=== PATIENT | female | born 1960 | race Caucasian/White ===

== ENCOUNTER 2016-09-07 15:11 | Emergency (ER) | payer OTHER ==
[~2016-09-07] VITALS: Ht 175.3 cm; Wt 61.4 kg
[~2016-09-07 15:11] MED LIST: ASCO1500 PO; CHOL200025 PO; CYCL10TA9 PO; FLUO40CA PO; FLUT9.9S NS; GABA-502 PO; HYDR-3740 PO; IBUP800T28 PO; LISI-571 PO; OMEP20CA11 PO; ONDA4TAB12 PO; THYR120T2 PO
[2016-09-07 15:28] VITALS: BP 147/78; PULSE 116; RESP 22; O2SAT 97
[2016-09-07 16:35] VITALS: BP 152/85; PULSE 117; RESP 18; O2SAT 98
--- NOTE | 2016-09-07 16:36 | ED.REPORT ---
HPI-Overdose/Alcohol Toxicity Date of Service Sep 07, 2016 ED Provider: Gee Lebron MD A 55 year old female with a medical history including anxiety, depression, bowel malrotation, hiatal hernia, fibromyalgia, and hypothyroidism presents to the ED accompanied by her spouse requesting help with alcohol withdrawal. She also reports suicidal ideation, subjective fever, and "a lot of pain all over" which has prevented her from sleeping. The patient has been off her pain medication for three months due to problems at the pain clinic. She has been drinking alcohol daily for the past month and is intoxicated on arrival. The patient denies vomiting, diarrhea, melena, abnormal chest, or abdominal pain. She has an operation scheduled on 09/17/16 for a hiatal hernia. Nursing Notes Stated Complaint: MENTAL HEALTH/ALCOHOL WITHDRAWL Chief Complaint: Psychiatric Complaint Nursing Notes Reviewed: Yes Allergies: Coded Allergies: droperidol (Verified Allergy, Unknown, 07/31/16) levothyroxine sodium (Verified Allergy, Unknown, Upset stomach, nausea, ) promethazine (Verified Adverse Reaction, Severe, Extrapyramidal Symptoms, 07/31/16) HAS TOLERATED RECENTLY - INGA IN EARLY 20s hydroxyzine (Verified Adverse Reaction, Intermediate, Agitation, 07/31/16) amoxicillin (Verified Adverse Reaction, Mild, STOMACH UPSET, 07/31/16) clavulanic acid (Verified Adverse Reaction, Mild, STOMACH UPSET, 07/31/16) nitrofurantoin (Verified Adverse Reaction, Unknown, Diarrhea, 07/31/16) Uncoded Allergies: KCL (Allergy, Unknown, 07/04/16) Scheduled Cholecalciferol (Vitamin D3) (Vitamin D3) 2,000 Unit Tablet 2,000 UNIT PO DAILY Fluoxetine (Fluoxetine) 40 Mg Capsule 40 MG PO DAILY Fluticasone Propionate (Flonase Allergy Relief) 50 Mcg/Actuation [place].susp 9.9 ML NS DAILY Gabapentin (Gabapentin) 300 Mg Capsule 300 MG PO BID Lisinopril (Lisinopril) 5 Mg Tablet 5 MG PO DAILY Omeprazole (Omeprazole) 20 Mg Capsule.dr 20 MG PO DAILY Thyroid,Pork ([place] Thyroid) 120 Mg Tablet 120 MG PO QAM Scheduled PRN Cyclobenzaprine (Cyclobenzaprine) 10 Mg Tablet 10 MG PO TID PRN PRN For Spasm Hydrocodone-Acetaminophen 10-325 mg (Hydrocodone-Acetaminophen 10-325 mg) 1 Each Tablet 1 TABLET PO Q6H PRN PRN For Pain Ibuprofen (Ibuprofen) 800 Mg Tablet 800 MG PO BID PRN PRN For Pain Ondansetron ODT (Ondansetron ODT) 4 Mg Tablet 4 MG PO Q8H PRN PRN For Nausea/ Vomiting Miscellaneous Medications Ascorbic Acid (Vitamin C) 1,500 Mg Tablet.er 1,000 MG PO General Time Seen by Provider: 15:15 Chief Complaint Intoxicated, alcohol Hx Obtained From: Patient, Spouse Arrived By: Walk-in Onset Occurred: More than a week ago... (1 month) Symptom Duration: Since onset Progression Since Onset: Gradually worsening Location: : Abdomen: Back lower: Back upper: Head: Neck Quality: Painful Severity: Current: Moderate Severity: Maximum: Moderate Associated with: Reports: Abdominal pain, Headache, Denies: Shortness of breath Pertinent Negative: Relieved by nothing Related History: Reports: Alcoholism, Anxiety, Depression Immunizations: Tetanus up to date Recent Healthcare: No recent doctor visit Similar Sx Previous: Yes Past Medical History Past Medical History Bowel malrotation Diverticulitis Irritable bowel syndrome Possible colitis Hypothyroidism Anxiety Depression Chronic sinusitis. 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 Physical Exam Initial Vital Signs Vital Signs (First) Date Time Temp Pulse Resp B/P Pulse Ox O2 Delivery O2 Flow Rate FiO2 09/07/16 15:28 36.1 116 22 147/78 97 Room Air Initial VS: Reviewed Head / Eyes: Atraumatic, Normocephalic ENT: Conjunctiva normal, No scleral icterus Neck: Supple, Full range of motion Skin: Warm, Dry, No cyanosis General/Constitutional: Awake, Alert Tearful Smells of alcohol Respiratory / Chest: Breath sounds NL, Breath sounds = bilat, No respiratory distress Cardiovascular: Regular rhythm, Heart sounds NL Heart Rate / Rhythm: Positive: Tachycardia Neurologic: Oriented X3, Speech NL, No motor deficits, No sensory deficits Abnormal Mood/Affect: Positive: Depressed Abnormal Thinking / Perception: Positive: Insight abnormal, Judgment abnormal, Suicidal, no plan, Negative: Confused Interpretation & Diagnostics Lab Results Interpretation Test 09/07/16 16:02 09/07/16 17:22 Hold Urine Received (Received) Re-Eval/Medical Decision Source of Hx: Old records Re-Evaluation/Progress : Time of Eval: 17:29 Re-Evaluation/Progress Note: Discussed with patient plan for observation until alcohol level decreases and transfer of care to Dr. Mosley. Patient agrees with plan for care and all questions were addressed. Counseled Regarding: Other (Transfer of care to Dr. Mosley) Discharge & Departure Shift Change Sign-Out Patient Care Transferred: Yes (Dr. Mosley) Discussed Complaint(s): Yes Laboratory Evaluation: Ordered, not yet done Response to Therapy: Improved Impression: Primary Impression: Depression with suicidal ideation Additional Impression: Alcohol intoxication Complication of substance-induced condition: uncomplicated Qualified Code: F10.120 - Alcohol abuse with intoxication, uncomplicated Discharge Condition All VS Reviewed: Yes Condition: Stable Referrals: NOPCP (PCP) Care Transferred to: Dr. Mosley Care Transferred at: 18:00 Debra Attestation Portions of this note were transcribed by Radha Connolly. I, Dr. Lebron, personally performed the history, physical exam, and medical decision-making; I reviewed and confirmed the accuracy of the information in the transcribed note. Signed by: Debra Jose, 09/07/2016, 17:33 Gee Lebron MD Sep 07, 2016 16:36 RADHA CONNOLLY Sep 07, 2016 16:57
[2016-09-07] MEDS ORDERED: LORazepam 2 mg Tablet PO ONE (17:15)
[2016-09-07] MEDS ORDERED: LORazepam 2 mg Tablet PO PRN (17:15)
[2016-09-07 17:41] LABS: BASOPHILS % (AUTO) 0.6 % (0-3); EOSINOPHILS % (AUTO) 0.9 % (0-5); MONOCYTES % (AUTO) 7.2 % (4-12); Mean Corpuscular Hemoglobin 32.4 pg (27.0-35.0); Mean Corpuscular Volume 93.8 fL (81-100); NEUTROPHILS % (AUTO) 47.5 % (40-74); Platelet Count 218 bil/L (150-400)
[2016-09-07 23:43] VITALS: BP 127/73; PULSE 109; RESP 20; O2SAT 98
[2016-09-08] MEDS ORDERED: LORazepam 1 mg Tablet PO ONE (00:15)
[2016-09-08] MEDS ORDERED: LORA0.5T PO (00:43)
[2016-09-08 01:12] LABS: APPEARANCE,URINE HAZY (CLEAR,HAZY); COLOR,URINE YELLOW (YELLOW); OCCULT BLOOD,URINE TRACE (NEGATIVE); PH,URINE 5.5 (5.0-8.0); UROBILINOGEN,URINE NORMAL (NORMAL)
[2016-09-12] MEDS ORDERED: DULO30CA PO (16:22)
[2016-09-24] MEDS ORDERED: SULF1TAB7 PO (11:33)
== END 2016-09-08 01:00 | disposition home or self-care (01) ==
LOC: SED 15:11
DX: F32.9 Major depressive disorder, single episode, unspecified (principal); F10.120 Alcohol abuse with intoxication, uncomplicated; F41.8 Other specified anxiety disorders; R45.851 Suicidal ideations; Z87.81 Personal history of (healed) traumatic fracture; Z87.19 Personal history of other diseases of the digestive system; Z88.0 Allergy status to penicillin; Z88.8 Allergy status to other drugs, medicaments and biological substances

== ENCOUNTER 2016-09-17 05:35 | Day surgery (SDC) | payer OTHER ==
[~2016-09-17] VITALS: Ht 175.3 cm; Wt 64.1 kg
[2016-09-17] VITALS (20 sets, daily range): BP systolic 118–157; BP diastolic 81–108; PULSE 84–95; RESP 8–20; O2SAT 94–100
[~2016-09-17 05:35] MED LIST changes: +Clindamycin 900 mg/50 mL D5W IV ONE; +DULO30CA PO; -FLUO40CA PO; -GABA-502 PO; -HYDR-3740 PO; -LISI-571 PO; +LORA0.5T PO; +Lactated Ringer's 1,000 ML IV ONE
[2016-09-17] MEDS ORDERED: Ketamine 10 mg/mL 20 mL Inj ONE (05:36)
[2016-09-17] MEDS ORDERED: Ondansetron 2 mg/mL 2 mL Inj ONE (05:36)
[2016-09-17] MEDS ORDERED: HYDROmorphone 2 mg/mL Inj ONE (05:36)
[2016-09-17] MEDS ORDERED: Dexamethasone 4 mg/mL Inj ONE (05:36)
[2016-09-17] MEDS ORDERED: fentaNYL-PF 50 mCg/mL 2 mL Inj ONE (05:36)
[2016-09-17] MEDS ORDERED: MeTOProlol 1 mg/mL 5 mL Inj ONE (05:36)
[2016-09-17] MEDS ORDERED: Propofol 10,000 mCg/mL 20 mL Inj ONE (05:36)
[2016-09-17] MEDS ORDERED: Clindamycin 900 mg/50 mL D5W Premix IV ONE (05:40)
[2016-09-17] MEDS ORDERED: Lactated Ringer's 1,000 ML IV ONE (06:15)
--- NOTE | 2016-09-17 07:10 | PCM.HPANE ---
Patient Data Surgeon Admitting Provider: Attending Provider:Lean Gatica MD Primary Care Physician:Other,Physician Other Provider:Kendall Mullins Anesthesia Reason for Visit Gerd, Congenital Malformations Of Intestinal Fixat Ht/WT & BMI Height (Feet): 5 Height (Inches): 9.00 Weight (Kilograms): 62.140 Body Mass Index 20.00 Allergies Coded Allergies: droperidol (Verified Allergy, Unknown, 07/31/16) levothyroxine sodium (Verified Allergy, Unknown, Upset stomach, nausea, ) promethazine (Verified Adverse Reaction, Severe, Extrapyramidal Symptoms, 07/31/16) HAS TOLERATED RECENTLY - INGA IN EARLY 20s hydroxyzine (Verified Adverse Reaction, Intermediate, Agitation, 07/31/16) amoxicillin (Verified Adverse Reaction, Mild, STOMACH UPSET, 07/31/16) clavulanic acid (Verified Adverse Reaction, Mild, STOMACH UPSET, 07/31/16) nitrofurantoin (Verified Adverse Reaction, Unknown, Diarrhea, 07/31/16) Past Anesthesia History Anesthesia History: Denies:: Abnormal Airway, Anesthesia Reactions, Difficult Intubation, Fam Anesthesia Reaction, Fam Malignant Hypertherm, Malignant Hyperthermia Diabetes History Hx Diabetes?: No MRSA MRSA: No Medications Hypertension Medication: No Home Meds Incl Beta Blanca: No Active Scripts Lorazepam 0.5 Mg Tablet0.5 Mg PO BID PRN For Anxiety #14 TABLET Ref 0 Prov:Philly Disla MD 09/08/16 Ondansetron ODT 4 Mg Tablet4 Mg PO Q8H PRN For Nausea/Vomiting 7 Days Prov:Elizabeth Gregg DO 09/08/15 Reported Medications Duloxetine (Cymbalta)30 Mg Capsule.dr30 Mg PO DAILY Ref 0 09/12/16 Omeprazole 20 Mg Capsule.dr20 Mg PO DAILY Ref 0 07/05/16 Ascorbic Acid (Vitamin C)1,500 Mg Tablet.er1,000 Mg PO 07/04/16 Fluticasone Propionate (Flonase Allergy Relief)50 Mcg/Actuation [place].susp9.9 Ml NS DAILY 07/04/16 Cholecalciferol (Vitamin D3) (Vitamin D3)2,000 Unit Tablet2,000 Unit PO DAILY 06/22/16 Thyroid,Pork ([place] Thyroid)120 Mg [id number] Mg PO QAM 06/22/16 Ibuprofen 800 Mg [id number] Mg PO BID PRN For Pain 06/22/16 Cyclobenzaprine 10 Mg Iiwffk07 Mg PO TID PRN For Spasm 06/22/16 Discontinued Reported Medications Fluoxetine 40 Mg Unlfwgy66 Mg PO DAILY Ref 0 07/05/16 Discontinued Scripts Lisinopril 5 Mg Tablet5 Mg PO DAILY #30 TABLET Ref 0 Prov:Denver Rothman DO 08/02/16 Hydrocodone-Acetaminophen 10-325 mg 1 Each Tablet1 Tablet PO Q6H PRN For Pain # 15 TABLET Prov:Denver Rothman DO 08/02/16 Gabapentin 300 Mg [id number] Mg PO BID #60 CAPSULE Ref 0 Prov:JOSSY PAGE DO 07/31/16 History History of ENT Problems?: Yes HEENT History: Positive for:: Sinus Problem (sinus surgery) Denies:: Abnormal Airway Cataracts Difficult Intubation Dysphagia ("just lots of phlegm") Glaucoma Hearing Problem TMJ Hx of Heart Problems?: Yes Cardiovascular History: Denies:: AICD Atrial Fibrillation Cardiac Surgery Chest Pain Congestive Heart Failure Edema Heart Murmur Hypertension Irregular Heartbeat Pacemaker Thrombophlebitis Valvular Heart Disease Hx of Respiratory Problem?: Yes Respiratory History: Positive for:: Pneumonia (remote hx of ) Denies:: Asthma COPD Chest Surgery Cough Dyspnea Emphysema Hemoptysis Oxygen Administration Tuberculosis Use of C-PAP Machine Use of Inhalers / NEBS Hx Neurologic Problems?: Yes Neurological History: Positive for:: Headaches (frequently) Denies:: Alzheimer's Disease CVA Dementia Dizziness Multiple Sclerosis Parkinson's Disease Seizures Hx of GI Problems?: Yes Gastrointestinal History: Positive for:: Gall Bladder Disease (hx of pancreatitis) Gastroesphageal Reflux (takes prilosec) Heartburn Hiatal Hernia (current admission problem) Rectal Bleeding (occasional spotting) Denies:: Cirrhosis Diverticulitis (colitis) Gastrointestinal Bleeding Hepatitis Other GI Pertinent History: hx of gut malrotation (spleen right sided). partial situs inversus Hx of Problems?: No Genitourinary History: Denies:: HX of Hemodialysis Kidney Stones Urinary Tract Infection HX of Peritoneal Dialysis: No Female Hx: Denies:: Currently (hysterectomy) Problems with Breasts? Skin History: Denies:: History Skin Disorders? Pressure Ulcers Hx Musculoskeletal Problems?: Yes Musculoskeletal History: Positive for:: Back Injury (chronic pain ) Fibromyalgia Osteoarthritis Denies:: Joint Replacement Musculoskeletal Trauma Myasthenia Gravis Rheumatoid Arthritis Systemic Lupus Hx of Psycho/Social Problems?: Yes Psycho Social History: Positive for:: Anxiety Hx Depression Denies:: Bipolar Disorder Suicide Attempt Hx Surgeries?: Yes (hyst, appe, abdominoplasty, bladder susp, tonsil, C section ) Hx Any Other Health Problems?: Yes Other History: Positive for:: Hospitalization (migraine, surgeries) Thyroid Disease (hypothyroid) Denies:: Cancer Endocrine Disease History Blood Transfusions: Positive for:: Accept Blood Products? Denies:: Blood Transfuse Reaction Blood Transfusions Hx Diabetes: No Hx Alcohol Use: Yes (ED visit 09/07/16- reported drinking daily, etoh withdrawal )Hx Substance Use: No Smoking Status: Former Smoker Have You Smoked inLast 12 mo: Yes Stop/Bang Treated for Sleep Apnea?: No Do You Have a CPAP Machine?: No S-Snoring: Do You Snore Loudly: No T-Tired: feel tired, fatigued: Yes O-Obsered: Observed not breath: No P-Blood Pressure: treated: No B- Body Mass Index > 35 kg/m2: No A- Age over 50: Yes N- Neck Large Circumference: No G- Gender Male: No JINNY Total Score: 2 JINNY Risk Assessment: Low Risk, <3 Yes Risk Assessment Category Category 1A: Patient has history of documented sleep apnea, and HAS NOT received any narcotic, sedative or anesthesia administration during this stay. Category 1B: Patient has history of documented sleep apnea, and HAS received any narcotic , sedative or anesthesia administration during this stay Category 2: Patient has SUSPECTED Obstructive Sleep Apnea, and HAS received any narcotic , sedative or anesthesia administration during this stay. Category 3: Patient has SUSPECTED Obstructive Sleep Apnea and HAS NOT received narcotic, sedative or anesthesia administration during this stay. Category 4: Outpatient in Procedural Areas with known sleep apnea or who screen positive for High Risk via the STOP/BANG questionnaire. Exam Exam Vital Signs Vital Signs Date Time Temp Pulse Resp B/P Pulse Ox O2 Delivery O2 Flow Rate FiO2 09/17/16 05:54 36.6 95 17 119/89 100 Room Air General Appearance: Alert, Oriented X3, Cooperative, No Acute Distress HEENT/AIRWAY: MP 2 Lungs: Clear to Auscultation, Normal Air Movement Heart: Exam Unremarkable, Regular Rate/Rhythm, No Murmurs/Rubs/Gallops Meds/Labs/Diagnostics Admission Meds Current Medications Lactated Ringer's (Lr) 1,000 ml @ ud STK-MED ONCE IV Last administered on 09/17t 06:15; Start 09/17/16 at 06:15; Stop 09/17/16 at 06:16; Status DC Plan Impression Patient chart reviewed, patient interviewed and anesthestic plan with risks, benefits, and alternatives discussed, and informed consent obtained. NPO Status: 0315 veg bullion ASA Physical Status: ASA2 Mod Systemic Disease Anesthetic Plan: GA Bene/Risks/Altern/Consents: Yes HP Complete Prior to Induction: Yes Elia Marcelo MD Sep 17, 2016 07:10
[2016-09-17] MEDS ORDERED: Bupivacaine-MPF 0.5% 30 mL Inj INFILTRATE ONE (07:29)
[2016-09-17] MEDS ORDERED: HYDROmorphone 1 mg/mL Inj IVPUSH PRN (08:20)
[2016-09-17] MEDS ORDERED: MetoCLOpramide 5 mg/mL 2 mL Inj IVPUSH PRN ×2 (08:20→13:40)
[2016-09-17] MEDS ORDERED: Phenylephrine 10,000 mCg/mL Inj IVPUSH PRN (08:20)
[2016-09-17] MEDS ORDERED: fentaNYL-PF 50 mCg/mL 2 mL Inj IVPUSH PRN (08:20)
[2016-09-17] MEDS ORDERED: Lactated Ringer's 500 ML IV PRN (08:20)
[2016-09-17] MEDS ORDERED: EPHEDrine Sulfate 50 mg/mL Inj IVPUSH PRN (08:20)
[2016-09-17] MEDS ORDERED: Lactated Ringer's 1,000 ML IV SCH (08:20)
[2016-09-17] MEDS ORDERED: Ondansetron 2 mg/mL 2 mL Inj IVPUSH PRN ×2 (08:20→13:40)
[2016-09-17] MEDS ORDERED: Dexamethasone 4 mg/mL Inj IVPUSH PRN (08:20)
[2016-09-17] MEDS ORDERED: Morphine PCA 1 mg/mL 30 mL Inj IV PRN (13:40)
--- NOTE | 2016-09-17 14:05 | PCM.SURGPO ---
Immediate Operative Note Date of Surgery: Sep 17, 2016 Pre Operative Diagnosis GERD, Malrotation, Partial Situs inversus Post Operative Diagnosis GERD, Malrotation, Partial Situs inversus Procedure Laparoscopic Hiatal Hernia Repair, Alina fundoplication Surgeon and Sports Manager Surgeon: Lena Gatica MD Assistants: MD Shirley Jama, JULIO CÉSAR Vick, MS3 Findings Partial Situs Inversus, Huge Liver, Stomach twisted with greater curvature tethered to the Right upper quadrant towards the spleen Complications There were no periprocedural complications identified. Surgical Specimen Removed: No Specimen sent to Pathology: No Anesthetic Administered: GA Grafts, Implants: None Output, Estimated Blood Loss: 10 Blood Admin during surgery: No Attending Statement First Assistants listed during the operation were essential for the successful completion of the case Lena Gatica MD Sep 17, 2016 14:04
[2016-09-17 14:27] LABS: BASOPHILS % (AUTO) 0.2 % (0-3); EOSINOPHILS % (AUTO) 0 % (0-5); MONOCYTES % (AUTO) 8.8 % (4-12); Mean Corpuscular Hemoglobin 33.1 pg (27.0-35.0); Platelet Count 217 bil/L (150-400)
[2016-09-17] MEDS: Acetaminophen IV 1,000 MG in IV Premix 1 EACH IV SCH ×2 (14:30→20:48)
[2016-09-17] MEDS ORDERED: Labetalol 5 mg/mL 20 mL Inj ONE (14:33)
[2016-09-17] MEDS ORDERED: Labetalol 5 mg/mL 4 mL Inj IV PRN (14:35)
[2016-09-17] MEDS: hydrALAZINE 20 mg/mL Inj IVPUSH PRN ×2 (14:51→14:57)
[2016-09-17 15:44] LABS: Lipase 7 U/L (13-60)
[2016-09-17] MEDS: D5 0.45% NaCl + KCl 20 mEq/L 1,000 ML IV SCH (16:00)
--- NOTE | 2016-09-17 18:39 | NUR ---
Transfer to [facility] Pt. transferred to [facility] at 1540 in stable condition. Awake and alert. c/o strong abdominal and bilateral shoulder pain. FIRE CODE INSPECTOR morphine set up and pt. educated on use. Continuous pulse ox on. Several boluses given to help decrease pain to manageable level.
--- NOTE | 2016-09-17 18:55 | OP ---
[address] [address] OPERATIVE REPORT PATIENT: AMANDO CLEMENS : 1960 MR#: [id number] ADMIT: 09/17/2016 JOB ID: [id number] DATE OF SURGERY: 09/17/2016 PREOPERATIVE DIAGNOSIS(ES): Hiatal hernia with gastroesophageal reflux disease, along with malrotation and partial situs inversus. POSTOPERATIVE DIAGNOSIS(ES): Hiatal hernia with gastroesophageal reflux disease, along with malrotation and partial situs inversus. PROCEDURE PERFORMED: Laparoscopic repair of hiatal hernia with Alina fundoplication. SURGEON: 1. Lena Gatica MD. 2. Erika Marie MD. STUDY ABROAD COORDINATOR: NINA Galvan MS3. ESTIMATED BLOOD LOSS: 10 mL. COMPLICATIONS: None. CONDITION OF THE PATIENT: Stable. INDICATIONS: The patient is a 55-year-old lady, who presents to Dr. Jha on June 13, 2016, for back pain. Because of the radiation of the pain to the front of the abdomen and her known findings of anatomical abnormalities inside the abdomen, he obtained a CT scan and sent her for a surgical consultation. She has known that she has malrotation since her hysterectomy in the distant past. She has always had problems with abdominal symptoms including pain, alternating constipation and diarrhea. She was given a diagnosis of irritable bowel syndrome. She has also had the longstanding reflux and heartburn. She continues to have periodic episodes of emesis. I met her on June 19, 2016, and obtained esophageal manometry with impedance, BUI 48 hour pH probe EGD and upper GI with small bowel follow-through. It showed malrotation with no evidence of obstruction, profound reflux with normal lower esophageal sphincter pressure, relaxation and esophageal motility. I saw her back on February 23, 2016, and booked her for a laparoscopic fundoplication along with possible Burdette procedure based on intraoperative findings, but she interestingly presented to the emergency department the next week and was reportedly diagnosed with a pancreatic pseudocyst. She was monitored in the hospital and then was discharged home and her abdominal symptoms improved. We repeated a CT scan to make sure the pseudocyst was indeed getting better, and she was brought to the operating room today with plans for hiatal hernia repair. Her ultrasounds previously have consistently shown her gallbladder to be normal, and she does believe alcohol could be the etiology for her pancreatitis. The patient was placed in supine position and underwent smooth induction of general anesthesia. She was then positioned in the low lithotomy position. Nath catheter was placed and the left arm was tucked. Abdomen was prepped and draped in the usual sterile fashion. Surgical time-out was undertaken using safety checklist, and all were in agreement. We entered the abdomen using open Selena technique a few fingerbreadths above the umbilicus. An 11 mm trocar was in place there. We then placed additional 5 mm port in the left upper quadrant and an additional 11 mm port in the left upper quadrant. We took down the adhesions off the left lateral segment to the stomach sharply and then placed a right lateral 5 mm port under direct vision. Through this, we tried placing the large metal liver retractor, but inspection of the hiatus was challenging given the large liver so we up sized this port to an 11 mm and placed a paddle liver retractor, but even after that, we were unable to hold the liver up adequately to visualize the hiatus well. There was another 5 mm port put in through the falciform and we used an additional small metal liver retractor to hold the posterior aspect of the left lateral segment. This was retracted manually for the rest of the duration of the case. We placed an additional 5 mm trocar in the left upper abdomen lower down for us to be able to have additional working ports. The stomach was grabbed and retracted down and we first started mobilizing the greater curve. The short gastrics were taken down with the LigaSure device and the dissection proceeded towards the hiatus starting on the left. We entered the mediastinum and mobilized the esophagus circumferentially, preserving the vagi. We initially used a Lincoln to develop a plane posterior to what we felt was the stomach, but it ended up being just through adipose tissue, prompting us to do additional dissection. What we realized was the problem was because of her partial situs inversus. Her lower aspect of the greater curvature was tethered in the right upper quadrant where the spleen was behind the liver. This made getting circumferentially around the GE junction extremely challenging, leading to additional difficulty, but once we divided these attachments with the LigaSure, we were able to replace the Lincoln around the GE junction and were able to obtain traction on the esophagus, mobilizing the esophagus adequately to get 4 cm of intra-abdominal esophagus. After this, we closed the crura with two 2-0 interrupted silk sutures posteriorly and one 2-0 silk suture anteriorly. Marking stitch was then placed on the posterior fundus 3 cm distal to the GE junction and 2 cm posterior to the greater curve. This was brought around posteriorly to align the geometry of the fundoplication. A mirror image location on the anterior fundus was chosen and a shoe shine maneuver was performed. The fundoplication was performed loosely with 2-0 silk. The Lincoln drain was then removed and we used three silk sutures for the fundoplication. We then proceeded to suture the fundoplication to the posterior aspect of the right sabiha. We additionally placed another anchoring suture from the left side of the fundoplication to the left sabiha. We then closed the 11 mm fascial sites with 0-Vicryl cnlomi-as-fgmel sutures. The skin was reapproximated with 4-0 Monocryl after infiltrating the sites again with 0.5% Marcaine. Steri-Strips and sterile dressing were applied. The patient was recovered from anesthesia and was taken to the recovery room in a stable condition. ADDENDUM FOR MODIFIER 22: The patient's altered anatomy from her partial situs inversus with extremely large liver added significant difficulty to the operation, increasing operative time significantly, prompting us to request higher reimbursement. JAG
[2016-09-17] MEDS ORDERED: MORPHINE PCA 1 MG/ML IV PRN (19:40)
[2016-09-17] MEDS: MORPHINE PCA 1 MG/ML IV PRN ×2 (20:40→21:52)
[2016-09-17] MEDS ORDERED: 0.9% Sodium Chloride 250 ML ONE (20:45)
[2016-09-18] VITALS (9 sets, daily range): BP systolic 135–150; BP diastolic 72–84; PULSE 69–101; RESP 14–20; O2SAT 94–98
[2016-09-18] MEDS: Acetaminophen IV 1,000 MG in IV Premix 1 EACH IV SCH ×3 (02:03→10:15)
--- NOTE | 2016-09-18 02:34 | NUR ---
Blood Glucose Patient tolerating clear liquid diet, denies nausea and vomiting at this time. BG 143@ 0200.
[2016-09-18] MEDS: D5 0.45% NaCl + KCl 20 mEq/L 1,000 ML IV SCH (04:48)
[2016-09-18 06:58] LABS: BASOPHILS % (AUTO) 0 % (0-3); EOSINOPHILS % (AUTO) 0.1 % (0-5); MONOCYTES % (AUTO) 10.5 % (4-12); Mean Corpuscular Hemoglobin 31.9 pg (27.0-35.0); Mean Corpuscular Volume 99.2 fL (81-100); NEUTROPHILS % (AUTO) 81.4 % (40-74); Platelet Count 98 bil/L (150-400)
[2016-09-18] MEDS: MORPHINE PCA 1 MG/ML IV PRN (07:28)
--- NOTE | 2016-09-18 07:32 | PCM.ANEP2 ---
Post Anesthesia Evaluation ASA/CMS Post Anesthesia VS in Patient's Normal Range?: Yes Resp Stable; Airway Patent?: Yes CV Function & Hydration Stable: Yes Mental Status Recovered?: Yes Pain control Satisfactory?: Yes N/V Control Satisfactory?: Yes Elia Marcelo MD Sep 18, 2016 07:32
--- NOTE | 2016-09-18 07:32 | PCM.ANEP1 ---
Post Anesthesia Phase 1 PACU Phase 1 Assessment Date of Service: Sep 17, 2016 Vital Signs Vital Signs Date Time Temp Pulse Resp B/P Pulse Ox O2 Delivery O2 Flow Rate FiO2 09/18/16 04:40 36.6 93 20 135/84 96 Room Air 09/18/16 03:28 18 97 09/18/16 01:02 18 98 09/18/16 00:03 36.5 92 18 145/83 98 Nasal Cannula 2.00 Anesthetic Administered: GA Level of Alertness: Sleepy, easy to arouse GA's with Equal Strength: Yes Pain: Yes Pain Scale Score: 4 Nausea or Vomiting: No Oxygen Delivery: Simple Mask Lungs: Clear to Auscultation, Normal Air Movement Dermatome Level: Full Sensation Elia Marcelo MD Sep 18, 2016 07:32
--- NOTE | 2016-09-18 08:32 | NUR ---
Pt off unit Pt to Radiology for UGI xrays.
--- NOTE | 2016-09-18 10:25 | DRSVH ---
PROCEDURE: X-RAY GASTROGRAPHIN STUDY OF ESOPHAGUS/PHARYNX ([id number]) INDICATIONS: Malrotation, Alina COMPARISON: None. FINDINGS: Limited Gastrografin esophagram demonstrates an intact Alina fundoplication and there is no extravas ation of contrast media present. The distal esophagus is mildly patulous and there is internal debri s likely related to ingested esophageal contents. Stomach is grossly normal. The attending physician was personally present in the room during the examination. IMPRESSION: Intact Alina fundoplication and no extravasation of contrast media seen. Dictated by: Joseph HE Interpreted: Yuri Garrett MD on 09/18/2016 at 10:24 Transcribed by: GAVIN on 09/18/2016 at 10:25 Approved by: Flex Garrett M.D. on 09/18/2016 at 14:15
--- NOTE | 2016-09-18 10:58 | NUR ---
Social Work Screen Note: SW met with patient at bedside to discuss discharge plan. Plan is a 55 year old male admitted under [facility] for GERD, congenital malformation of intest. Patient payer as Chronicity. Patient has no prison disability nor VA benefits. Patient PCP as MD Taylor. Patient resides in [place] with significant other Froy, who to provide support and care. Patient pharmacy of choice as [facility]. Patient has no HHC, SNF, or DME history. Patient has no AD and declined completion of form. Patient states being independent with needs and states that she still drives. Patient denied any further discharge needs at this time. SW to follow. PLAN: Home with SO via POV, pending clinical course. SW to follow as further needs arise. Manuel CODY
--- NOTE | 2016-09-18 11:16 | NUR ---
RD Education RD Education provided 09/18 regarding pureed diet. For more detailed information, please see RD Teaching Record under Care Activity. Addendum: 09/18/16 at [address] I have read and agree with above student documentation. Lily Muniz RD, CD
[2016-09-18] MEDS ORDERED: oxyCODONE 1 mg/mL 5 mL Liquid PO PRN (12:35)
[2016-09-18] MEDS ORDERED: Ibuprofen Suspension 20 mg/mL 5 mL Suspension PO SCH ×2 (12:35→18:35)
[2016-09-18] MEDS ORDERED: Acetaminophen 32.5 mg/mL 20 mL Liquid PO SCH (12:35)
[2016-09-18] MEDS ORDERED: OXYC5SOL11 PO (12:41)
[2016-09-18] MEDS ORDERED: ACET650S24 PO (12:41)
[2016-09-18] MEDS ORDERED: IBUP100O10 PO (12:41)
--- NOTE | 2016-09-18 12:45 | PCM.PNSURG ---
Subjective Date of Service: Sep 18, 2016 Visit Information: Ever zaldivar 09/17/2016 Post-Op Day # 1 Date of Admission: Hospital Day # 2 Subjective: Tolerating liquids Objective Vital Sign- Last 8 Hours Date Time Temp Pulse Resp B/P Pulse Ox O2 Delivery O2 Flow Rate FiO2 09/18/16 11:26 101 94 09/18/16 11:12 14 09/18/16 07:36 14 97 09/18/16 07:32 Simple Mask Intake and Output- Last 8 Hour 09/18/16 Cumulative From/Thru 07:00 09/12/16 16:02 - 09/18/16 06:43 Intake Total 1194 ml 4418 ml Output Total 575 ml 795 ml Balance 619 ml 3623 ml Intake Oral 360 ml 460 ml IV Total 834 ml 3958 ml Output Urine Total 575 ml 775 ml Estimated Blood Loss 20 ml Abdomen: Soft SURGICAL WOUND : Wound Location/Description dressings dry Result Diagram: 09/18/16 0555 09/18/16 0555 Diagnostics: Upper GI looks good Assessment & Plan Impression Doing well Problems: Plan Full liquid diet Liquid pain meds Plan discharge F/u In 2 weeks Lena Gatica MD Sep 18, 2016 12:45
--- NOTE | 2016-09-18 13:28 | PCM.DISURG ---
Surgical Discharge Instruction Date of Service Sep 18, 2016 Dates of Hospitalization Date of Hospital Admission 09/17/2016 Providers Admitting Physician: Primary Care Physician: Other,Physician Attending Physician: Lena Gatica MD Discharge Diagnosis Discharge Diagnosis Primary diagnosis: 1. Hiatal hernia with gastroesophageal reflux disease 2. Malrotation 3. Partial situs inversus. Other diagnoses: 1. Colonic polyps 2. Sol thyroiditis 3. Fibromyalgia 4. Migraine headaches 5. Endometriosis 6. Osteoarthritis 7. Daily cigarette smoker 8. Anxiety 9. Depression 10. Irritable bowel syndrome Post Operative diagnosis Same Diet Discharge Diet: Other (liquid diet) Activity Discharge Activity-General: Balance rest and activity, No driving while taking narcotic Dressing and Incisional Care Dressing Care: Allow Steri Stripes to fall off Hygiene: May shower Follow Up Plan Follow-up Provider (F9): Lena Gatica MD Follow-up appointment: Weeks (2) Call your provider for: Fever, Chills, Nausea, Vomiting, Wound redness, Increasing wound pain, Warmth to touch, Discharge @ incision, pus discharge, Other (retching or inability to swallow) Roderick Mohamud PA-C Sep 18, 2016 13:28
--- NOTE | 2016-09-18 13:35 | PCM.DC.SUR ---
Discharge Summary Date of Service: Sep 18, 2016 Date of Hospital Admission: 09/17/2016 Date of Operation(s): 09/17/2016 Date of Discharge: 09/18/2016 Diagnosis at Time of Discharge Primary diagnosis: 1. Hiatal hernia with gastroesophageal reflux disease 2. Malrotation 3. Partial situs inversus. Other diagnoses: 1. Colonic polyps 2. Sol thyroiditis 3. Fibromyalgia 4. Migraine headaches 5. Endometriosis 6. Osteoarthritis 7. Daily cigarette smoker 8. Anxiety 9. Depression 10. Irritable bowel syndrome Problems: Operation Laparoscopic repair of hiatal hernia with Alina fundoplication. Brief History and Physical: The patient is a 55-year-old female who presented to her primary care physician Dr. Jha on 06/13/2016 for back pain. Because of the radiation of the pain to the front of the abdomen, and her known findings of anatomical abnormalities inside the abdomen he obtained a CT scan and sent her for surgical consultation. She has known that she has malrotation since her hysterectomy in the distant past. She has always had problems with abdominal symptoms, including pain, alternating constipation, and diarrhea. She had been given the diagnosis of irritable bowel syndrome. She has also had long-standing reflux and heartburn. She has been taking omeprazole for over 2 years with only partial relief of symptoms. She continued to have periodic episodes of emesis. Consultants: None Hospital Course: The patient was admitted and underwent the above-mentioned operation without complication. The following day she was afebrile and pain was well controlled on liquid oral analgesic. She was eating Jell-O and drinking liquids with no odynophagia, dysphagia, or regurgitation. The patient was stable for discharge on her first postsurgical day. Pathology: None Disposition: The patient was discharged to home on her first postsurgical day. Follow-up Plan: She will follow-up in the office with Dr. Gatica in 2 weeks. Acetaminophen (Acetaminophen Liquid) 650 Mg/20 Ml Liquid 650 MG PO Q6H Ascorbic Acid (Vitamin C) 1,500 Mg Tablet.er 1,000 MG PO (Reported) Cholecalciferol (Vitamin D3) (Vitamin D3) 2,000 Unit Tablet 2,000 UNIT PO DAILY (Reported) Cyclobenzaprine (Cyclobenzaprine) 10 Mg Tablet 10 MG PO TID PRN PRN For Spasm ( Reported) Duloxetine (Cymbalta) 30 Mg Capsule.dr 30 MG PO DAILY (Reported) Fluticasone Propionate (Flonase Allergy Relief) 50 Mcg/Actuation [place].susp 9.9 ML NS DAILY (Reported) Ibuprofen (Children's Ibuprofen) 100 Mg/5 Ml Oral.susp 400 MG PO Q6H Lorazepam (Lorazepam) 0.5 Mg Tablet 0.5 MG PO BID PRN PRN For Anxiety Omeprazole (Omeprazole) 20 Mg Capsule.dr 20 MG PO DAILY (Reported) Ondansetron ODT (Ondansetron ODT) 4 Mg Tablet 4 MG PO Q8H PRN PRN For Nausea/ Vomiting Thyroid,Pork ([place] Thyroid) 120 Mg Tablet 120 MG PO QAM (Reported) oxyCODONE (oxyCODONE) 5 Mg/5 Ml Solution 5 MG PO Q4H PRN PRN For Severe Pain copies to: Nura Jha DO; Abdirahman García Fred H PA-C Sep 18, 2016 13:35
--- NOTE | 2016-09-18 17:14 | NUR ---
Discharge Pt discharged to home with family via private vehicle at 1655 hrs. PIV removed intact. Pain controlled. VSS. All personal possessions sent with pt. Discharge and follow up instructions given to pt and she expressed understanding.
[2016-09-24] MEDS ORDERED: SULF1TAB7 PO (11:33)
== END 2016-09-18 17:00 | disposition home or self-care (01) ==
LOC: SAS 05:35 → OSC 15:40 → SAS 09-18 17:00
PROVIDERS: ATTEND Student in an Organized Health Care Education/Training Program
DX: K44.9 Diaphragmatic hernia without obstruction or gangrene (principal); K21.9 Gastro-esophageal reflux disease without esophagitis; Q43.3 Congenital malformations of intestinal fixation; Q89.3 Situs inversus; G89.29 Other chronic pain; E06.3 Autoimmune thyroiditis; E03.9 Hypothyroidism, unspecified; F41.9 Anxiety disorder, unspecified; F17.210 Nicotine dependence, cigarettes, uncomplicated; Z79.891 Long term (current) use of opiate analgesic; Z86.010 Personal history of colon polyps
CPT/HCPCS: 36415; 43280; 74220; 80053; 82150; 83690; 85025; 94640; J0131; J0360; J1100; J1170; J2250; J2270; J2405; J7050; J7120; Q9963

== ENCOUNTER 2016-09-22 11:23 | Emergency (ER) | payer OTHER ==
[~2016-09-22] VITALS: Ht 175.3 cm; Wt 63.6 kg
[~2016-09-22 11:23] MED LIST changes: +ACET650S24 PO; -Clindamycin 900 mg/50 mL D5W IV ONE; +IBUP100O10 PO; -IBUP800T28 PO; -Lactated Ringer's 1,000 ML IV ONE; +OXYC5SOL11 PO
[2016-09-22 11:26] VITALS: BP 146/86; PULSE 106; RESP 16; O2SAT 97
--- NOTE | 2016-09-22 11:31 | ED.REPORT ---
HPI-Abd Pain F 40 and Over Date of Service Sep 22, 2016 ED Provider: Viki Wilber 55 year old female with a history of bowel malrotation, diverticulitis, pancreatitis, GERD, and IBS presents to the ER with 6 days of post-operative abdominal pain status post laparoscopic Alina fundoplication, performed by Dr. Gatica. Associated symptoms include nausea, and diarrhea x6 since yesterday. Patient denies fever, chills, and vomiting. Three days ago she ran out of her oxycodone, and has since been treating pain with ibuprofen and Tylenol with minimal relief. She called Dr. Marie, Surgeon, regarding her symptoms, who referred her to the ER. Nursing Notes Stated Complaint: HAD SURGERY HIATAL HERNIA/ IN PAIN & VOMITTING Chief Complaint: Female Abdominal Pain Nursing Notes Reviewed: Yes Allergies: Coded Allergies: droperidol (Verified Allergy, Unknown, 07/31/16) levothyroxine sodium (Verified Allergy, Unknown, Upset stomach, nausea, ) promethazine (Verified Adverse Reaction, Severe, Extrapyramidal Symptoms, 07/31/16) HAS TOLERATED RECENTLY - INGA IN EARLY 20s hydroxyzine (Verified Adverse Reaction, Intermediate, Agitation, 07/31/16) amoxicillin (Verified Adverse Reaction, Mild, STOMACH UPSET, 07/31/16) clavulanic acid (Verified Adverse Reaction, Mild, STOMACH UPSET, 07/31/16) nitrofurantoin (Verified Adverse Reaction, Unknown, Diarrhea, 07/31/16) Scheduled Acetaminophen (Acetaminophen Liquid) 650 Mg/20 Ml Liquid 650 MG PO Q6H Cholecalciferol (Vitamin D3) (Vitamin D3) 2,000 Unit Tablet 2,000 UNIT PO DAILY Duloxetine (Cymbalta) 30 Mg Capsule.dr 30 MG PO DAILY Fluticasone Propionate (Flonase Allergy Relief) 50 Mcg/Actuation [place].susp 9.9 ML NS DAILY Ibuprofen (Children's Ibuprofen) 100 Mg/5 Ml Oral.susp 400 MG PO Q6H Omeprazole (Omeprazole) 20 Mg Capsule.dr 20 MG PO DAILY Sulfamethoxazole/Trimeth 800-160 mg (Bactrim DS) 1 Each Tablet 1 TABLET PO BID Thyroid,Pork ([place] Thyroid) 120 Mg Tablet 120 MG PO QAM Scheduled PRN Cyclobenzaprine (Cyclobenzaprine) 10 Mg Tablet 10 MG PO TID PRN PRN For Spasm Lorazepam (Lorazepam) 0.5 Mg Tablet 0.5 MG PO BID PRN PRN For Anxiety Ondansetron ODT (Ondansetron ODT) 4 Mg Tablet 4 MG PO Q8H PRN PRN For Nausea/ Vomiting Ondansetron ODT (Zofran ODT) 4 Mg Tablet 4 MG PO Q4H PRN PRN For Nausea oxyCODONE (oxyCODONE) 5 Mg/5 Ml Solution 5 MG PO Q4H PRN PRN For Severe Pain oxyCODONE (oxyCODONE) 5 Mg Capsule 1-2 MG PO Q4H PRN PRN For Pain Miscellaneous Medications Ascorbic Acid (Vitamin C) 1,500 Mg Tablet.er 1,000 MG PO General Time Seen by MD: 11:30 Chief Complaint Abdominal pain Hx Obtained From: Patient Arrived By: Walk-in Sudden in Onset?: No Onset Occurred: 6 days ago Symptom Duration: Since onset Progression since Onset: Gradually worsening Location: : Diffuse Quality: Painful Severity: Current: Moderate Severity: Maximum: Severe Associated with: Reports: Diarrhea, Nausea, Denies: Vomiting Context Related History: Reports: Abdominal surgery (Alina fundoplication), Diverticulosis, GERD, Hiatal hernia, Pancreatitis Recent Healthcare: No recent hospitalization, Recent doctor visit Past Medical History Past Medical History Bowel malrotation Diverticulitis Irritable bowel syndrome Possible colitis Hypothyroidism Anxiety Depression Chronic sinusitis. 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 Physical Exam Vital Signs Vital Signs (First) Date Time Temp Pulse Resp B/P Pulse Ox O2 Delivery O2 Flow Rate FiO2 09/22/16 11:26 36.6 106 16 146/86 97 Room Air Initial VS: Reviewed Head / Eyes: Atraumatic, Normocephalic Neck: Supple, Non-tender, Full range of motion Extremities: Vascular intact, Neuro intact, No swelling, No tenderness Neurologic: Alert, Oriented, Nonfocal Psychiatric: Mood/affect normal, Behavior normal, Normal thought content Respiratory / Chest: Breath sounds NL, Breath sounds = bilat, No respiratory distress, No rales, No rhonchi, No wheezing, No stridor Cardiovascular: Heart rate NL, Regular rhythm, Heart sounds NL, Peripheral circulation NL Abdomen: No guarding, No rebound, BS normoactive Tenderness/Guarding/Rebound: Positive: Tender diffuse Bowel Sounds / Distention: Positive: Distention moderate Tenderness to light palpation across the upper abdomen. Tenderness to deep palpation across the lower abdomen. Surgical incisions clean, dry, intact. Tender along surgical incisions. Brusing around periumbilical incision and LUQ. Back: Inspection NL, Non-tender, No CVA tenderness ENT: Airway patent Mouth: Positive: Mucous membranes dry Skin: Warm, Dry, Intact Poor turgor. Interpretation & Diagnostics Lab Results Interpretation Result Diagram: 09/22/16 1224 09/22/16 1224 Test 09/22/16 12:22 09/22/16 12:24 Urine Color Yellow (YELLOW) Urine Appearance Hazy (CLEAR,HAZY) Urine pH 5.5 (5.0-8.0) Urine Specific [place] 1.030 (1.003-1.035) Urine Protein Negativemg/dL (NEG,TRACE) Urine Glucose (UA) Negativemg/dL (NEGATIVE) Urine Ketones Negativemg/dL (NEGATIVE) Urine Occult Blood Negative (NEGATIVE) Urine Nitrite Negative (NEGATIVE) Urine Bilirubin Negative (NEGATIVE) Urine Urobilinogen Normalmg/dL (NORMAL) Urine Leukocyte Esterase Trace (NEGATIVE) Urine RBC 0-2/hpf (0-2) Urine WBC 0-5/hpf (0-5) Urine Epithelial Cells Moderate/hpf (NONE-MOD) Urine Crystals None seen (NONE SEEN) Urine Bacteria Few/hpf (NONE-FEW) Urine Hyaline Casts None/lpf (NONE) Urine Granular Casts None seen (NONE SEEN) Urine Waxy Casts None seen (NONE SEEN) Urine Red Blood Cell Casts None seen (NONE SEEN) Urine White Blood Cell Casts None seen (NONE SEEN) Urine Mucus None seen (None Seen) Urine Trichomonas None seen (NONE SEEN) Urine Yeast None (NONE SEEN) Urinalysis Comment None Urine Culture Reflexed Indicated White Blood Count 7.6th/mm3 (3.8-10.1) Red Blood Count 3.72mil/mm3 (3.90-5.20) Hemoglobin 12.2g/dL (12.0-15.6) Hematocrit 36.4% (35.0-46.0) Mean Corpuscular Volume 97.8fL (81-100) Mean Corpuscular Hemoglobin 32.8pg (27.0-35.0) Mean Corpuscular Hemoglobin Concent 33.5% (32.0-37.0) Red Cell Distribution Width 15.3% (12.3-15.4) Platelet Count 193bil/L (150-400) Neutrophils (%) (Auto) 74.4% (40-74) Lymphocytes (%) (Auto) 12.5% (14-46) Monocytes (%) (Auto) 11.2% (4-12) Eosinophils (%) (Auto) 1.2% (0-5) Basophils (%) (Auto) 0.3% (0-3) Prothrombin Time 9.4sec (8.1-12.5) Prothromb Time International Ratio 0.88ratio Sodium Level 134mEq/L (134-144) Potassium Level 4.4mEq/L (3.5-5.2) Chloride Level 96mEq/L (97-108) Carbon Dioxide Level 22mmol/L (18-29) Blood Urea Nitrogen 6mg/dL (6-24) Creatinine 0.36mg/dL (0.57-1.00) Estimat Glomerular Filtration Rate 270mL/min (>59) Glucose Level 119mg/dL (60-99) Lactic Acid Level 2.1mmol/L (0.4-2.0) Calcium Level 8.8mg/dL (8.5-10.1) Magnesium Level 1.7mg/dL (1.6-2.6) Total Bilirubin 0.3mg/dL (0.0-1.2) Aspartate Amino Transf (AST/SGOT) 97U/L (0-50) Alanine Aminotransferase (ALT/SGPT) 118U/L (0-32) Alkaline Phosphatase 153U/L (25-150) Total Protein 6.8g/dL (6.4-8.4) Albumin 3.5g/dL (3.4-5.0) Lipase 7U/L (13-60) Alcohol, Quantitative < 10mg/dL (0-10) X-Ray Interpretation Xray Interpretation: IMPRESSION: Mildly dilated loops of bowel noted which could represent early complete or partial obstruction. Dictated by: Joanne Bruce MD, PhD on 09/22/2016 at 15:58 Approved by: Joanne Bruce MD, PhD on 09/22/2016 at 16:01 Study Performed: X-RAY ABDOMEN, ONE VIEW ([id number]) Interpretation / Wet Read by: Interpret - Radiologist CT Abd / Pelvis Interpretation IMPRESSION: 1. Congenital heterotaxy syndrome with left isomerism, situs ambiguous and polysplenia. 2. Status post Alina fundoplication. Inflammatory changes adjacent to fundoplication site likely postsurgical, however infection can't be excluded by imaging alone. 2. Small amount of free intraperitoneal air likely postsurgical, however bowel perforation cannot be excluded. No extravasation oral contrast is identified. 4. Dilated proximal, short segment loop of small bowel compatible with small bowel obstruction. . 5. New hypoattenuating lesions in the liver which could represent hepatic infarcts, however finding is nonspecific and other etiologies including hepatic contusion or infection could produce similar appearance. Please correlate with clinical data. 6. Colonic diverticulosis without evidence of diverticulitis. 7. Pancreatic pseudocyst stable compared to recent prior CT scans. 8. Findings telephoned to Dr. Chris Drew on 09/22/16 at 1434 hrs. Dictated by: Joanne Bruce MD, PhD on 09/22/2016 at 14:49 Approved by: Joanne Bruce MD, PhD on 09/22/2016 at 15:10 Study type: Abdominal CT IV contrast, Abdom CT oral contrast Interpretation / Wet Read by: Interpret - Radiologist Re-Eval/Medical Decision Source of Hx: Old records Re-Evaluation/Progress #1: Time of Eval: 13:39 Re-Evaluation/Progress Note: Updated patient on the plan of care. Re-Evaluation/Progress #2: Time of Eval: 16:17 Re-Evaluation/Progress Note: Abdominal exam improved, less tender, less distention. Reports passing gas. Patient's significant other is now present, at bedside. Discussed lab and radiology results and plan to discharge with plan for surgery follow-up. Patient is amenable to the plan. Return precautions given. All other questions addressed. Consultation #1: Referral / Consult Name: Joanne Bruce MD, PhD Consulted With: On-call physician (Radiology) Call Returned at: 14:40 Note: Radiology called to discuss CT results. Consultation #2: Referral / Consult Name: Aly Marie MD Consulted With: Surgeon Call Returned at: 14:45 Note: Discussed CT results with Dr. Marie, Surgeon. Recommends taking plain film in 1 hour. He will discuss with Dr. Bruce, Radiology. Send patient home with pain medications and instructions to follow-up in 3-4 days with her surgeon. Consultation #3: Referral / Consult Name: Aly Marie MD Consulted With: Surgeon Call Returned at: 15:15 Note: Less concerned after reviewing old scans. No follow-up x-ray necessary unless there is concern for physical examination. Liquid diet, small frequent meals. Follow-up with Dr. Gatica. Counseled Regarding: Diagnosis, Lab results, Need for follow-up, When/why to return to ED Discharge & Departure Primary Impression: Abdominal pain Additional Impression: Diarrhea Disposition: Home Discharge Condition All VS Reviewed: Yes Condition: Stable Patient Instructions: Acute Abdominal Pain (ED) Additional Instructions: Your workup today was reassuring, I do not believe that there is any immediately dangerous cause for your symptoms at this time. Maintain a liquid diet, with small, frequent meals. Take oxycodone as directed for pain. Do not consume alcohol or drive while taking oxycodone. Use Zofran as directed for nausea. Follow-up with Dr. Gatica in 3-4 days. Return to the ER if you develop fever, chills, or any worsening or concerning symptoms. Referrals: OTHER,PHYSICIAN (PCP) Lena Gatica MD Attestation Portions of this note were transcribed by Pj Macdonald. I, Dr. Drew personally performed the history, physical exam and medical decision-making; I reviewed and confirmed the accuracy of the information in the transcribed note. Signed by: Debra Busch, 09/22/2016 and 16:25. copies to: Lena Gatica MD, Gary R DO Sep 22, 2016 11:30 PJ MACDONALD Sep 22, 2016 11:36
[2016-09-22] MEDS ORDERED: Ondansetron 2 mg/mL 2 mL Inj IVPUSH ONE (11:55)
[2016-09-22] MEDS ORDERED: Iohexol 300 mg/mL 30 mL Inj PO ONE (11:55)
[2016-09-22 12:27] LABS: BASOPHILS % (AUTO) 0.3 % (0-3); EOSINOPHILS % (AUTO) 1.2 % (0-5); MONOCYTES % (AUTO) 11.2 % (4-12); Mean Corpuscular Hemoglobin 32.8 pg (27.0-35.0); Mean Corpuscular Volume 97.8 fL (81-100); NEUTROPHILS % (AUTO) 74.4 % (40-74); Platelet Count 193 bil/L (150-400)
[2016-09-22] MEDS: Ondansetron 2 mg/mL 2 mL Inj IVPUSH PRN ×2 (12:33→14:03)
[2016-09-22] MEDS: HYDROmorphone 0.5 mg/0.5 mL iSecure Syringe IVPUSH PRN ×2 (12:35→14:05)
[2016-09-22 12:42] LABS: INR 0.88 ratio
[2016-09-22 12:50] LABS: Magnesium 1.7 mg/dL (1.6-2.6)
[2016-09-22 12:58] LABS: APPEARANCE,URINE HAZY (CLEAR,HAZY); COLOR,URINE YELLOW (YELLOW); OCCULT BLOOD,URINE NEGATIVE (NEGATIVE); PH,URINE 5.5 (5.0-8.0); UROBILINOGEN,URINE NORMAL (NORMAL)
[2016-09-22 14:23] VITALS: BP 122/85; PULSE 79; RESP 18; O2SAT 94
--- NOTE | 2016-09-22 15:12 | DRSVH ---
PROCEDURE: CT ABDOMEN AND PELVIS WITH CONTRAST ([id number]) INDICATIONS: abdominal pain, vomiting, postop hital hernia rpr TECHNIQUE: After the administration of oral and intravenous contrast, 5 mm thick sections acquired from the diap hragms to the symphysis. 5 mm thick coronal and sagittal reformats were performed. For radiation do se reduction, the following was used: automated exposure control, adjustment of mA and/or kV accordi ng to patient size. COMPARISON: [facility], CR, XR ESOPHAGUS PHARYNX (GASTRO), 09/18/2016, 8:45. [facility], CT, CT ABD PELVIS W CON, 09/13/2016, 17:21. [facility], CT, CT ABD PELVIS W CON, 07/31/2016, 0:18. [facility], CR, XR UPPER GI BA + SBFT, 07/17/2016, 10:30. [facility], CT, CT ABD PELVIS W CON, 06/21/2016, 18:38. [facility], CT, CT ABD PEL VIS W CON, 06/13/2016, 16:36. [facility], CT, CT ABD PELVIS W CON, 09/06/2015, 21:00. [facility], CT, CT ABD PELVIS W CON, 05/24/2015, 3:28. [facility], CR, XR ABD ACUTE SERIES 3VW, 03/28/2015, 11:36. [facility], CT, ABD/PELVIS W/CON (PNL), 12/02/2014, 1 8:50. [facility], CT, ABD/PELVIS W/CON (PNL), 02/20/2005, 19:57. FINDINGS: Image quality: Excellent. ABDOMEN: Lung bases: Atelectasis is noted in the lung bases. Heart size is normal. Solid organs: Congenital heterotaxy with left isomerism, situs ambiguous and polysplenia noted. Live r and gallbladder are centrally located and a right-sided spleen is noted. Hypoattenuating foci are noted in the left lobe the liver which have developed in the interval since prior CT scan obtained . Hypoattenuating focus in the liver adjacent to the falciform ligament has increased slightly in size. Hypoattenuating lesions in the liver are suspicious for hepatic infarcts, however finding i s nonspecific and other etiologies including aspiration or infection could produce a similar appearan ce. Gallbladder is prominent. Mild intra-hepatic and extrahepatic biliary tree dilatation is noted. Pancreas enhances normally. 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 Pancreatic pseudocyst is stable compared to 09/13. No adrenal nodules. Kidneys are normal in size and enhancement, without hydronephrosis. Appen shelley is not visualized and may be surgically absent. No inflammatory changes noted adjacent to the ce cum. Peritoneum and bowel: Large and small bowel loops are malrotated with cecum in the left lower quadra nt. Postsurgical changes compatible with Alina fundoplication are noted. Mild inflammatory changes are noted adjacent to the Alina fundoplication which is likely postsurgical, however infectious pro cess cannot be differentiated by imaging alone. There is a short segment, dilated small bowel loop m easuring up to 3.5 cm in diameter. Contrast material is noted in the dilated loop of small bowel. N o extravasated contrast material is identified. Stomach and colon loops are normal in caliber and wa ll thickness. Free air is noted in the anterior and superior aspect of the abdomen which may be relat ed to surgery, however bowel perforation cannot be completely excluded. Scattered diverticuli noted in the colon without evidence of diverticulitis. Nodes and vessels: No retroperitoneal or mesenteric adenopathy. Aorta and inferior vena cava are no rmal in caliber. 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 Miscellaneous: No ventral hernias. PELVIS: Genitourinary: Bladder wall thickness is normal. Miscellaneous: No inguinal hernias or adenopathy. Multiple surgical clips noted in the right groin. Bones: No suspicious bony lesions. No vertebral body compression fractures. IMPRESSION: 1. Congenital heterotaxy syndrome with left isomerism, situs ambiguous and polysplenia. 2. Status post Alina fundoplication. Inflammatory changes adjacent to fundoplication site likely p ostsurgical, however infection can't be excluded by imaging alone. 2. Small amount of free intraperitoneal air likely postsurgical, however bowel perforation cannot be excluded. No extravasation oral contrast is identified. 4. Dilated proximal, short segment loop of small bowel compatible with small bowel obstruction. . 5. New hypoattenuating lesions in the liver which could represent hepatic infarcts, however finding is nonspecific and other etiologies including hepatic contusion or infection could produce similar ap pearance. Please correlate with clinical data. 6. Colonic diverticulosis without evidence of diverticulitis. 7. Pancreatic pseudocyst stable compared to recent prior CT scans. 8. Findings telephoned to Dr. Chris Drew on 09/22/16 at 1434 hrs. Dictated by: Joanne Bruce MD, PhD on 09/22/2016 at 14:49 Approved by: Joanne Bruce MD, PhD on 09/22/2016 at 15:10
--- NOTE | 2016-09-22 16:02 | DRSVH ---
PROCEDURE: X-RAY ABDOMEN, ONE VIEW ([id number]) INDICATIONS: evaluate contrast for bowel obstruction, abdominal pain TECHNIQUE: One view of the abdomen acquired. COMPARISON: [facility], CT, CT ABD PELVIS W CON, 09/22/2016, 14:12. FINDINGS: Surgical changes and devices: None. Bowel: Bowel gas pattern is nonspecific. Soft tissues: No suspicious abdominal calcifications. Visualized solid organ contours appear normal in size. Bones: No suspicious bony lesions. IMPRESSION: Mildly dilated loops of bowel noted which could represent early complete or partial obst ruction. Dictated by: Joanne Bruce MD, PhD on 09/22/2016 at 15:58 Approved by: Joanne Bruce MD, PhD on 09/22/2016 at 16:01
[2016-09-22] MEDS ORDERED: ONDA4TAB9 PO (16:24)
[2016-09-22] MEDS ORDERED: OXYC5CAP4 PO (16:24)
[2016-09-22 16:53] VITALS: BP 148/87; PULSE 91; RESP 17; O2SAT 100
[2016-09-24] MEDS ORDERED: SULF1TAB7 PO (11:33)
== END 2016-09-22 16:59 | disposition home or self-care (01) ==
LOC: SED 11:23
DX: R10.9 Unspecified abdominal pain (principal); R19.7 Diarrhea, unspecified; K21.9 Gastro-esophageal reflux disease without esophagitis; Z87.891 Personal history of nicotine dependence; Z90.710 Acquired absence of both cervix and uterus; Z90.49 Acquired absence of other specified parts of digestive tract; Z88.1 Allergy status to other antibiotic agents; Z88.8 Allergy status to other drugs, medicaments and biological substances
CPT/HCPCS: 36415; 74000; 74177; 80053; 81000; 83605; 83690; 83735; 85025; 85610; 87077; 87086; 87088; 87186; 96374; 96375; 96376; 99285; G0480; J1170; J2405; Q9967

== ENCOUNTER 2016-09-29 14:05 | Emergency (ER) | payer OTHER ==
[~2016-09-29] VITALS: Ht 175.3 cm; Wt 63.6 kg
[~2016-09-29 14:05] MED LIST changes: +ONDA4TAB9 PO; +OXYC5CAP4 PO; +SULF1TAB7 PO
[2016-09-29 14:08] VITALS: BP 122/67; PULSE 36; PULSE 80; RESP 20; O2SAT 97
--- NOTE | 2016-09-29 15:06 | ED.REPORT ---
HPI-Extremity Problem Lower Date of Service Sep 29, 2016 ED Provider: Leon Ni MD Pt is a 55 y.o. female with a hx of varicose veins, arthritis, and fibromyalgia who presents to the ED c/o right ankle pain and swelling onset today. Pt describes the pain as the sensation of "rubber bands" around her ankle. She denies SOB, dyspnea on exertion, and CP. She reports undergoing surgery for a hiatal hernia 2 weeks ago. She had called her PCP earlier today to express her concerns about her ankle and they recommended she come into the ED to rule out a DVT. Pt denies hx of DVT. Nursing Notes Stated Complaint: RT ANKLE & FOOT PAINN & SWELLING-HAD SX 2WEEKS AGO Nursing Notes Reviewed: Yes (Enumeral [employer]ical, Yorder not reconciled) Allergies: Coded Allergies: droperidol (Verified Allergy, Unknown, 07/31/16) levothyroxine sodium (Verified Allergy, Unknown, Upset stomach, nausea, ) promethazine (Verified Adverse Reaction, Severe, Extrapyramidal Symptoms, 07/31/16) HAS TOLERATED RECENTLY - INGA IN EARLY 20s hydroxyzine (Verified Adverse Reaction, Intermediate, Agitation, 07/31/16) amoxicillin (Verified Adverse Reaction, Mild, STOMACH UPSET, 07/31/16) clavulanic acid (Verified Adverse Reaction, Mild, STOMACH UPSET, 07/31/16) nitrofurantoin (Verified Adverse Reaction, Unknown, Diarrhea, 07/31/16) Scheduled Acetaminophen (Acetaminophen Liquid) 650 Mg/20 Ml Liquid 650 MG PO Q6H Cholecalciferol (Vitamin D3) (Vitamin D3) 2,000 Unit Tablet 2,000 UNIT PO DAILY Duloxetine (Cymbalta) 30 Mg Capsule.dr 30 MG PO DAILY Fluticasone Propionate (Flonase Allergy Relief) 50 Mcg/Actuation [place].susp 9.9 ML NS DAILY Ibuprofen (Children's Ibuprofen) 100 Mg/5 Ml Oral.susp 400 MG PO Q6H Omeprazole (Omeprazole) 20 Mg Capsule.dr 20 MG PO DAILY Sulfamethoxazole/Trimeth 800-160 mg (Bactrim DS) 1 Each Tablet 1 TABLET PO BID Thyroid,Pork ([place] Thyroid) 120 Mg Tablet 120 MG PO QAM Scheduled PRN Cyclobenzaprine (Cyclobenzaprine) 10 Mg Tablet 10 MG PO TID PRN PRN For Spasm Lorazepam (Lorazepam) 0.5 Mg Tablet 0.5 MG PO BID PRN PRN For Anxiety Ondansetron ODT (Ondansetron ODT) 4 Mg Tablet 4 MG PO Q8H PRN PRN For Nausea/ Vomiting Ondansetron ODT (Zofran ODT) 4 Mg Tablet 4 MG PO Q4H PRN PRN For Nausea oxyCODONE (oxyCODONE) 5 Mg/5 Ml Solution 5 MG PO Q4H PRN PRN For Severe Pain oxyCODONE (oxyCODONE) 5 Mg Capsule 1-2 MG PO Q4H PRN PRN For Pain Miscellaneous Medications Ascorbic Acid (Vitamin C) 1,500 Mg Tablet.er 1,000 MG PO General Time Seen by MD: 15:02 Chief Complaint Ankle injury right Hx Obtained From: Patient Arrived By: Walk-in Onset Occurred: 5 - 8 hours ago Symptom Duration: Since onset Location: : Ankle right Quality: Painful Similar Sx Previous: No Past Medical History Past Medical History 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 Respiratory: Denies: Dyspnea on exertion, Shortness of breath Cardiovascular: Denies: Chest pain Physical Exam Initial Vital Signs Vital Signs (First) Date Time Temp Pulse Resp B/P Pulse Ox O2 Delivery O2 Flow Rate FiO2 09/29/16 14:08 36.5 80 20 122/67 97 Room Air Initial VS: Reviewed, Vital signs normal (HR 36 is a typo, HR is normal ) Head / Eyes: Atraumatic, Normocephalic Upper Extremities: Vascular intact, Neuro intact Skin: Warm, Dry, No cyanosis Neurologic: Alert, Oriented, Nonfocal Psychiatric: Mood/affect normal, Behavior normal, Normal thought content Lower Extremity / Pelvis / MS: Atraumatic, Inspection NL Right Leg / Calf: Negative: Swelling present... (Not appreciated during exam) Ankle / Foot: Non-tender, No deformity, Neurologic intact, Vascular intact Right Ankle: Positive: Swelling present... No signs of infection present upon examination General/Constitutional: Awake, Alert, Well appearing, Well developed, Well hydrated, Well nourished, Not toxic appearing Respiratory / Chest: Atraumatic, Breath sounds NL, Breath sounds = bilat, No respiratory distress, No rales, No rhonchi, No wheezing Cardiovascular: Heart rate NL (HR in 70's), Regular rhythm, Heart sounds NL Abdomen: Soft, Non-tender Trauma - General: Positive: Ecchymosis Incision sites are healing normally Interpretation & Diagnostics US Soft Tissue/Musculoskeletal IMPRESSION: No deep vein thrombosis of the right lower extremity. Dictated by: Shena Galdamez M.D. on 09/29/2016 at 15:53 Approved by: Shena Galdamez M.D. on 09/29/2016 at 15:53 Re-Eval/Medical Decision Med Decision/Clinical Course This is a 55-year-old female recently had a Alina fundoplication performed recent weeks and noticed a sense of fullness and swelling at the distal calf and right ankle today. She denies chest pain, shortness of breath, has no prior history of DVT or PE, and a risk factor is the recent surgery. She called her provider and was referred to come in for evaluation for the possibility of DVT. He appears wellness in no distress. She has normal vitals, she is not tachycardic she is not tachypneic she is not dyspneic. On exam she does have trace edema at the level of the ankle, is not clinically appreciable above the calf. There are findings of some chronic venous insufficiency which she states have been there previously. A duplex ultrasound lower extremity was negative for DVT. At this point I am not finding indication for additional testing, reassurance was provided. The patient is being discharged-she was instructed if symptoms are not resolving over the next week, she needs a repeat ultrasound for recheck. And if she develops new or worsening symptoms of any kind in the interim-increasing pain, swelling, chest pain, shortness of breath-she is to return directly to the emergency department. She is discharged in good condition Source of Hx: Old records Re-Evaluation/Progress : Time of Eval: 15:42 Re-Evaluation/Progress Note: Pt rechecked. Discussed US results and plan for discharge. Pt understands and agrees with plan. Differential Diagnosis: Negative: Arterial occlus/ischemia, Compartment syndrome, Femur fracture, Fibular fracture, Laceration, Puncture wound, Venous thromboembolism Counseled Regarding: Diagnosis, Lab results, Need for follow-up, When/why to return to ED Discharge & Departure Impression: Primary Impression: Swelling of right lower extremity Disposition: Home Discharge Condition All VS Reviewed: Yes Condition: Stable Additional Instructions: 1. A dangerous cause of the swelling at the ankle was not identified. The ultrasound that you have did not reveal any signs of a DVT or dangerous blood clot. 2. This may be related to mobilization of third space fluids received during the recent surgery underwent. If that is the case, it is expected to resolve fairly rapidly over the next week or so. Activities as tolerated. If symptoms are not improved, or fevers any worsening- you will need a repeat ultrasound in approximately 1 week's time 3. Return if new or worsening symptoms Referrals: OTHER,PHYSICIAN (PCP) [facility] Debra Attestation Portions of this note were transcribed by Jo Suggs. I, Dr. Ni personally performed the history, physical exam and medical decision-making; I reviewed and confirmed the accuracy of the information in the transcribed note. Signed by: Debra Bergman, 09/29/2016 and 1601. copies to: [facility] Leon Ni MD Sep 29, 2016 15:06 JO SUGGS Sep 29, 2016 15:17
[2016-09-29 15:54] VITALS: BP 116/85; PULSE 93; O2SAT 97
--- NOTE | 2016-09-29 15:55 | DRSVH ---
PROCEDURE: US VEINOUS LEG DUPLEX UNILATERAL, RIGHT INDICATIONS: swelling post op ro DVT TECHNIQUE: Real-time imaging, as well as color and pulse Doppler interrogation, were performed of the lower extr emity deep veins from the inguinal ligament to the popliteal fossa. COMPARISON: None. FINDINGS: The deep veins are normally compressible, and free of intraluminal thrombus. Color and pu lse Doppler demonstrate normal phasic intraluminal flow. There is normal augmentation response to di stal compression maneuver. IMPRESSION: No deep vein thrombosis of the right lower extremity. Dictated by: Shena Galdamez M.D. on 09/29/2016 at 15:53 Approved by: Shena Galdamez M.D. on 09/29/2016 at 15:53
== END 2016-09-29 15:55 | disposition home or self-care (01) ==
LOC: SED 14:05
DX: M79.89 Other specified soft tissue disorders (principal); K21.9 Gastro-esophageal reflux disease without esophagitis; Z90.49 Acquired absence of other specified parts of digestive tract; Z90.710 Acquired absence of both cervix and uterus; Z87.891 Personal history of nicotine dependence; Z88.1 Allergy status to other antibiotic agents; Z88.8 Allergy status to other drugs, medicaments and biological substances

== ENCOUNTER 2016-10-03 18:38 | Emergency (ER) | payer OTHER ==
[~2016-10-03] VITALS: Ht 165.1 cm; Wt 63.6 kg
[2016-10-03 19:08] VITALS: BP 170/103; PULSE 95; RESP 16; O2SAT 100
[2016-10-03 20:08] LABS: BASOPHILS % (AUTO) 0.7 % (0-3); EOSINOPHILS % (AUTO) 1.8 % (0-5); MONOCYTES % (AUTO) 9.9 % (4-12); Mean Corpuscular Hemoglobin 32.6 pg (27.0-35.0); Mean Corpuscular Volume 98.1 fL (81-100); NEUTROPHILS % (AUTO) 54.9 % (40-74); Platelet Count 526 bil/L (150-400)
[2016-10-03 20:25] LABS: Magnesium 1.8 mg/dL (1.6-2.6)
[2016-10-03] MEDS ORDERED: 0.9% Sodium Chloride 1,000 ML IV ONE (20:50)
[2016-10-03] MEDS ORDERED: HYDROmorphone 0.5 mg/0.5 mL iSecure Syringe IVPUSH ONE (20:50)
[2016-10-03] MEDS ORDERED: Ondansetron 2 mg/mL 2 mL Inj IVPUSH ONE ×2 (20:50→23:55)
--- NOTE | 2016-10-03 21:04 | ED.REPORT ---
HPI-Abd Pain F 40 and Over Date of Service Oct 03, 2016 ED Provider: Seth Juárez MD This is a 55 year old female with a history of diverticulitis, IBS, GERD, pancreatitis, hiatal hernia, bowel malrotation, and hypothyroidism presenting to the emergency department complaining of diffuse abdominal pain that worsened today. S/p laparoscopic repair of hiatal hernia and her malrotation on 09/18/16, now reports diffuse abdominal cramping associated with nausea and abdominal distention. She was better postop and has had a recurrence of her pain just in the past day. Pt is passing gas, denies vomiting, diarrhea, constipation, fever , or chills. Recent antibiotics for UTI. She was chronically on opioid pain relievers, and is recently transferred care to [place] and also to a pain center. She states she has not been on daily opioids for several months. She had an episode with a fracture of her foot, and then the postop meds given after this surgery. She is out of her opioids post surgery. Nursing Notes Stated Complaint: ABDOMINAL PAIN,NAUSEA POST OP SURGERY 2 WEEKS AGO Chief Complaint: Female Abdominal Pain Nursing Notes Reviewed: Yes Allergies: Coded Allergies: droperidol (Verified Allergy, Unknown, 10/03/16) levothyroxine sodium (Verified Allergy, Unknown, Upset stomach, nausea, ) promethazine (Verified Adverse Reaction, Severe, Extrapyramidal Symptoms, 10/03/16) HAS TOLERATED RECENTLY - INGA IN EARLY 20s hydroxyzine (Verified Adverse Reaction, Intermediate, Agitation, 10/03/16) amoxicillin (Verified Adverse Reaction, Mild, STOMACH UPSET, 10/03/16) clavulanic acid (Verified Adverse Reaction, Mild, STOMACH UPSET, 10/03/16) nitrofurantoin (Verified Adverse Reaction, Unknown, Diarrhea, 10/03/16) Scheduled Acetaminophen (Acetaminophen Liquid) 650 Mg/20 Ml Liquid 650 MG PO Q6H Cholecalciferol (Vitamin D3) (Vitamin D3) 2,000 Unit Tablet 2,000 UNIT PO DAILY Duloxetine (Cymbalta) 30 Mg Capsule.dr 30 MG PO DAILY Fluticasone Propionate (Flonase Allergy Relief) 50 Mcg/Actuation [place].susp 9.9 ML NS DAILY Ibuprofen (Children's Ibuprofen) 100 Mg/5 Ml Oral.susp 400 MG PO Q6H Omeprazole (Omeprazole) 20 Mg Capsule.dr 20 MG PO DAILY Sulfamethoxazole/Trimeth 800-160 mg (Bactrim DS) 1 Each Tablet 1 TABLET PO BID Thyroid,Pork ([place] Thyroid) 120 Mg Tablet 120 MG PO QAM Scheduled PRN Cyclobenzaprine (Cyclobenzaprine) 10 Mg Tablet 10 MG PO TID PRN PRN For Spasm Dicyclomine (Dicyclomine) 20 Mg Tablet 20 MG PO QID PRN PRN For GI Cramps Lorazepam (Lorazepam) 0.5 Mg Tablet 0.5 MG PO BID PRN PRN For Anxiety Ondansetron ODT (Ondansetron ODT) 4 Mg Tablet 4 MG PO Q8H PRN PRN For Nausea/ Vomiting Ondansetron ODT (Zofran ODT) 4 Mg Tablet 4 MG PO Q4H PRN PRN For Nausea Ondansetron ODT (Ondansetron ODT) 8 Mg Tab.rapdis 8 MG PO QID PRN PRN For Nausea oxyCODONE (oxyCODONE) 5 Mg/5 Ml Solution 5 MG PO Q4H PRN PRN For Severe Pain oxyCODONE (oxyCODONE) 5 Mg Capsule 1-2 MG PO Q4H PRN PRN For Pain Miscellaneous Medications Ascorbic Acid (Vitamin C) 1,500 Mg Tablet.er 1,000 MG PO General Time Seen by MD: 21:01 Chief Complaint Abdominal pain Hx Obtained From: Patient Arrived By: Walk-in Sudden in Onset?: Yes Onset Occurred: 5 - 8 hours ago Symptom Duration: Since onset Severity: Current: Moderate Pertinent Negative: Pt denies other symptoms Recent Healthcare: Recent hospitalization Similar Sx Previous: No Past Medical History Past Medical History 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 Physical Exam Vital Signs Vital Signs (First) Date Time Temp Pulse Resp B/P Pulse Ox O2 Delivery O2 Flow Rate FiO2 10/03/16 19:08 36.4 95 16 170/103 100 Room Air Initial VS: Reviewed Head / Eyes: Atraumatic, Normocephalic, PERRL ENT: Mucous membranes moist, Conjunctiva normal, No scleral icterus Neck: Supple, Non-tender, Full range of motion Extremities: Vascular intact, Neuro intact, No swelling, No tenderness Skin: Warm, Dry, No cyanosis Neurologic: Alert, Oriented, Nonfocal Psychiatric: Mood/affect normal, Behavior normal, Normal thought content General/Constitutional: Awake, Alert Respiratory / Chest: Breath sounds NL, Breath sounds = bilat, No respiratory distress, No rales, No rhonchi, No wheezing, No stridor Cardiovascular: Heart rate NL, Regular rhythm, Heart sounds NL, Peripheral circulation NL Tenderness/Guarding/Rebound: Positive: Tender diffuse Bowel Sounds / Distention: Positive: Bowel sounds hyperactive Back: Inspection NL, Non-tender, No CVA tenderness Interpretation & Diagnostics CT ABD PELVIS CONCLUSION: Mass of the stomach at the GE junction is nonspecific and may be postsurgical, no obstruction. Cannot rule out mass, hernia or other complicating feature. Scattered small bowel fluid is nonspecific. may be postprandial, cannot rule out gastroenteritis, or ileus. Geographical hypodense area in the liver may reflect an area of more prominent fatty infiltration, less likely, this could reflect a mass. Nonspecific cystic structure in the left upper quadrant, may be congenital or chronic, though acute abnormalities are difficult to entirely exclude. No SBO or free air. 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 RADIOLOGIST: Sally Salgado MD Lab Results Interpretation Result Diagram: 10/03/16195810/03/161958 Test 10/03/16 19:59 White Blood Count 6.1th/mm3 (3.8-10.1) Red Blood Count 4.11mil/mm3 (3.90-5.20) Hemoglobin 13.4g/dL (12.0-15.6) Hematocrit 40.3% (35.0-46.0) Mean Corpuscular Volume 98.1fL (81-100) Mean Corpuscular Hemoglobin 32.6pg (27.0-35.0) Mean Corpuscular Hemoglobin Concent 33.3% (32.0-37.0) Red Cell Distribution Width 15.4% (12.3-15.4) Platelet Count 526bil/L (150-400) Neutrophils (%) (Auto) 54.9% (40-74) Lymphocytes (%) (Auto) 32.5% (14-46) Monocytes (%) (Auto) 9.9% (4-12) Eosinophils (%) (Auto) 1.8% (0-5) Basophils (%) (Auto) 0.7% (0-3) Sodium Level 131mEq/L (134-144) Potassium Level 4.6mEq/L (3.5-5.2) Chloride Level 93mEq/L (97-108) Carbon Dioxide Level 22mmol/L (18-29) Blood Urea Nitrogen 4mg/dL (6-24) Creatinine 0.44mg/dL (0.57-1.00) Estimat Glomerular Filtration Rate 214mL/min (>59) Glucose Level 122mg/dL (60-99) Calcium Level 9.3mg/dL (8.5-10.1) Magnesium Level 1.8mg/dL (1.6-2.6) Total Bilirubin 0.2mg/dL (0.0-1.2) Aspartate Amino Transf (AST/SGOT) 47U/L (0-50) Alanine Aminotransferase (ALT/SGPT) 25U/L (0-32) Alkaline Phosphatase 184U/L (25-150) Total Protein 7.9g/dL (6.4-8.4) Albumin 3.8g/dL (3.4-5.0) Lipase 5U/L (13-60) Hold Singh Top Tube Received (Received) Re-Eval/Medical Decision Med Decision/Clinical Course 55-year-old just post repair of her hiatal hernia and gut malrotation presents with acute onset abdominal pain and nausea. She has no evidence of obstruction on CAT scan. She has a mass in the gastroesophageal junction that is probably hematoma postop. No evidence of obstruction there and none distally. She is improved here after nausea meds in two cycles, IV fluid, and pain relief. Discharged home with a single ten pack of Vicodin and no renewal expressly disclosed. She was given Bentyl, which she has had a positive experience with in the past. She is discharged now in stable condition. Re-Evaluation/Progress : Time of Eval: 00:35 Patient Status: Condition improved Re-Evaluation/Progress Note: Discussed CT results and plan for discharge, pt understands and agrees with plan, all questions addressed. 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: Agrees with eval, Agrees with plan Counseled Regarding: Diagnosis, Lab results, Need for follow-up, When/why to return to ED Discharge & Departure Primary Impression: Abdominal pain Abdominal location: generalized Qualified Code: R10.84 - Generalized abdominal pain Additional Impressions: Irritable bowel IBS diarrhea presence: without diarrhea Qualified Code: K58.9 - Irritable bowel syndrome without diarrhea Vomiting Vomiting type: unspecified Vomiting Intractability: non-intractable Nausea presence: with nausea Qualified Code: R11.2 - Nausea with vomiting, unspecified Disposition: Home Discharge Condition All VS Reviewed: Yes Condition: Stable Additional Instructions: Use Zofran four times daily if needed for nausea. He may use Bentyl up to four times daily if needed for crampy pain. You have ten Vicodin, but these cannot be refilled out of the emergency department. If it is appropriate ultimately, your doctor may renew these. But only your family doctor or pain specialist can renew these. Return if you have any immediate issues. Follow-up with your surgeon. Continue your other meds as directed. Referrals: OTHER,PHYSICIAN (PCP) Lena Gatica MD Attestation Portions of this note were transcribed by Dianne Gifford. I, Dr. Juárez personally performed the history, physical exam and medical decision-making; I reviewed and confirmed the accuracy of the information in the transcribed note. Signed by: nilo Casey. 10/03/2016, 23:00. copies to: Lena Gatica MD, Christopher W MD Oct 03, 2016 21:04 DIANNE GIFFORD Oct 03, 2016 21:06
[2016-10-03] MEDS ORDERED: HYDROmorphone Inj 2 MG in 0.9% Sodium Chloride 100 ML IV ONE (21:05)
[2016-10-03] MEDS ORDERED: Iohexol 300 mg/mL 30 mL Inj PO ONE (21:35)
[2016-10-03 21:52] VITALS: BP 140/97; PULSE 89; RESP 18; O2SAT 99
[2016-10-03] MEDS ORDERED: risperiDONE 1 mg Tablet PO ONE (22:00)
[2016-10-03] MEDS ORDERED: HYDROmorphone 1 mg/mL Inj IVPUSH ONE (22:10)
[2016-10-03] MEDS: HYDROmorphone 1 mg/mL Inj IVPUSH PRN (23:07)
[2016-10-03 23:08] VITALS: BP 139/79; PULSE 93; RESP 24; O2SAT 100
[2016-10-04] MEDS: HYDROmorphone 1 mg/mL Inj IVPUSH PRN ×2 (00:09→01:08)
[2016-10-04] MEDS ORDERED: _HYDROcodone/APAP 5-325 mg Tablet PO PRN (00:45)
[2016-10-04] MEDS ORDERED: ONDA8TAB10 PO (00:48)
[2016-10-04] MEDS ORDERED: DICY20TA10 PO (00:48)
[2016-10-04 01:24] VITALS: BP 121/81; PULSE 107; RESP 24; O2SAT 96
--- NOTE | 2016-10-04 08:43 | DRSVH ---
PROCEDURE: CT ABDOMEN AND PELVIS WITH CONTRAST ([id number]) INDICATIONS: sbo post op HH and malrotation surgery TECHNIQUE: After the administration of intravenous contrast, 5 mm thick sections acquired from the diaphragm to the symphysis. 5 mm coronal and sagittal reformats were acquired. For radiation dose reduction, the following was used: automated exposure control, adjustment of mA and/or kV according to patient siz e. COMPARISON: [facility], CT, CT ANGIO CHEST PE, 06/21/2016, 18:38. [facility] l, CT, CT ABD PELVIS W CON, 06/21/2016, 18:38. [facility], CT, CT ABD PELVIS W CON, 07/19, 0:18. [facility], CT, CT ABD PELVIS W CON, 09/22/2016, 14:12. [facility] ital, CT, CT ABD PELVIS W CON, 09/13/2016, 17:21. FINDINGS: Image quality: Excellent. ABDOMEN: Lung bases: Lung bases are clear. Heart size is normal. Solid organs: There is diffuse hepatic fatty infiltration. There is a wedge-shaped hypodensity in th e left hepatic lobe, unchanged. The spleen is small and within the right upper quadrant. Gallbladder is normal. Biliary system is non dilated. Pancreas is atrophic. There is a 3.0 x 3.9 cm cyst in the left upper quadrant, consistent with a pancreatic pseudocyst. It has decreased in size compared to . No adrenal nodules. Kidneys demonstrate normal size and enhancement, without hydronephros is. Peritoneum and bowel: There are postsurgical changes related to Alina's fundoplication. Stomach is distended. The duodenum is contracted. There is malrotation with duodenum C-sweep of left of the midl ine. The small bowel and colon loops demonstrate normal wall thickness and caliber. Scattered coloni c diverticula. No evidence for active diverticulitis. No free fluid or air. Nodes and vessels: No retroperitoneal or mesenteric adenopathy by size criteria. Aorta and inferior vena cava are normal in size. The inferior vena cava is absent above the renal veins. Dilated azygo us vein is noted. Miscellaneous: No ventral hernias. PELVIS: Genitourinary: Bladder wall thickness is normal. Miscellaneous: No inguinal hernias or adenopathy. Bones: No suspicious bony lesions. No vertebral body compression fractures. IMPRESSION: 1. There are postsurgical changes related to Ailna fundoplication. Distended stomach and decompresse d duodenum are noted, which could be secondary to gastric outlet obstruction. Recommend clinical kevin elation. 2. No evidence for small bowel obstruction. 3. Colonic diverticulosis. No acute diverticulitis. 4. Congenital situs anomaly as previously noted. 5. A wedge-shaped hypodensity in the left hepatic lobe appears unchanged. Differential diagnoses incl ude hepatic infarction and contusion. A mass is felt less likely. 6. Atrophic pancreas. There is a pancreatic pseudocyst which has slightly decreased in size. 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 No significant discrepancy with the shift mechanic radiology preliminary report. Dictated by: Nick Wilson M.D. on 10/04/2016 at 8:24 Transcribed by: GUIDO on 10/04/2016 at 8:42 Approved by: Nick Wilson M.D. on 10/04/2016 at 9:01
== END 2016-10-04 01:28 | disposition home or self-care (01) ==
LOC: SED 18:38
DX: R10.84 Generalized abdominal pain (principal); K58.9 Irritable bowel syndrome, unspecified; M79.7 Fibromyalgia; K21.9 Gastro-esophageal reflux disease without esophagitis; E03.9 Hypothyroidism, unspecified; Z98.890 Other specified postprocedural states; Z87.891 Personal history of nicotine dependence; Z88.1 Allergy status to other antibiotic agents; Z88.8 Allergy status to other drugs, medicaments and biological substances
CPT/HCPCS: 36415; 74177; 80053; 81025; 83690; 83735; 85025; 96361; 96374; 96375; 96376; 99285; J1170; J2060; J2405; J7030; Q9967

== ENCOUNTER 2016-10-11 21:46 | Emergency (ER) | payer OTHER ==
[~2016-10-11] VITALS: Ht 175.3 cm; Wt 63.6 kg
[~2016-10-11 21:46] MED LIST changes: +DICY20TA10 PO; +ONDA8TAB10 PO
[2016-10-11 21:53] VITALS: BP 148/101; PULSE 98; RESP 20; O2SAT 100
[2016-10-11] MEDS ORDERED: Ondansetron 2 mg/mL 2 mL Inj ONE (22:03)
[2016-10-11] MEDS ORDERED: Ondansetron 2 mg/mL 2 mL Inj IVPUSH ONE (22:05)
--- NOTE | 2016-10-11 22:38 | ED.REPORT ---
HPI-Abd Pain F 40 and Over Date of Service Oct 11, 2016 ED Provider: Dr. Seth uJárez M.D. A 55 year old female with a medical history including bowel malrotation, hypothyroidism, diverticulitis, and IBS s/p laparoscopic repair of hiatal hernia with Alina fundoplication (09/18/16) presents to the ED via EMS with abdominal cramping onset this morning upon awakening. Her pain is exacerbated with eating and drinking. The patient also reports worsening nausea and vomiting. She was given Zofran 4 mg, morphine x3, and fentanyl 50mcg en route. The patient has been passing gas and denies constipation. She has taken Gas-X and applied heating pads with no relief. The patient was in the ED on 10/03/16 with similar symptoms, which resolved and then returned. Nursing Notes Stated Complaint: ABD PAIN POST SURGERY Chief Complaint: Female Abdominal Pain Nursing Notes Reviewed: Yes Allergies: Coded Allergies: droperidol (Verified Allergy, Unknown, 10/03/16) levothyroxine sodium (Verified Allergy, Unknown, Upset stomach, nausea, ) promethazine (Verified Adverse Reaction, Severe, Extrapyramidal Symptoms, 10/03/16) HAS TOLERATED RECENTLY - INGA IN EARLY 20s hydroxyzine (Verified Adverse Reaction, Intermediate, Agitation, 10/03/16) amoxicillin (Verified Adverse Reaction, Mild, STOMACH UPSET, 10/03/16) clavulanic acid (Verified Adverse Reaction, Mild, STOMACH UPSET, 10/03/16) nitrofurantoin (Verified Adverse Reaction, Unknown, Diarrhea, 10/03/16) Scheduled Acetaminophen (Acetaminophen Liquid) 650 Mg/20 Ml Liquid 650 MG PO Q6H Cholecalciferol (Vitamin D3) (Vitamin D3) 2,000 Unit Tablet 2,000 UNIT PO DAILY Duloxetine (Cymbalta) 30 Mg Capsule.dr 30 MG PO DAILY Fluticasone Propionate (Flonase Allergy Relief) 50 Mcg/Actuation [place].susp 9.9 ML NS DAILY Ibuprofen (Children's Ibuprofen) 100 Mg/5 Ml Oral.susp 400 MG PO Q6H Omeprazole (Omeprazole) 20 Mg Capsule.dr 20 MG PO DAILY Omeprazole (Omeprazole) 20 Mg Tablet.dr 20 MG PO BID Sulfamethoxazole/Trimeth 800-160 mg (Bactrim DS) 1 Each Tablet 1 TABLET PO BID Thyroid,Pork ([place] Thyroid) 120 Mg Tablet 120 MG PO QAM Scheduled PRN Cyclobenzaprine (Cyclobenzaprine) 10 Mg Tablet 10 MG PO TID PRN PRN For Spasm Dicyclomine (Dicyclomine) 20 Mg Tablet 20 MG PO QID PRN PRN For GI Cramps Lorazepam (Lorazepam) 0.5 Mg Tablet 0.5 MG PO BID PRN PRN For Anxiety Ondansetron ODT (Ondansetron ODT) 4 Mg Tablet 4 MG PO Q8H PRN PRN For Nausea/ Vomiting Ondansetron ODT (Zofran ODT) 4 Mg Tablet 4 MG PO Q4H PRN PRN For Nausea Ondansetron ODT (Ondansetron ODT) 8 Mg Tab.rapdis 8 MG PO QID PRN PRN For Nausea Ondansetron ODT (Ondansetron ODT) 8 Mg Tab.rapdis 8 MG PO QID PRN PRN For Nausea oxyCODONE (oxyCODONE) 5 Mg/5 Ml Solution 5 MG PO Q4H PRN PRN For Severe Pain oxyCODONE (oxyCODONE) 5 Mg Capsule 1-2 MG PO Q4H PRN PRN For Pain Miscellaneous Medications Ascorbic Acid (Vitamin C) 1,500 Mg Tablet.er 1,000 MG PO General Time Seen by MD: 22:38 Chief Complaint Abdominal pain Hx Obtained From: Patient Arrived By: Walk-in Sudden in Onset?: Yes Onset Occurred: 13 - 16 hours ago Context of Onset: Recent surgery Symptom Duration: Since onset Location: : Diffuse Quality: Cramping, Painful Severity: Current: Moderate Severity: Maximum: Moderate Associated with: Denies: Constipation, Fever Pertinent Negative: Relieved by nothing Context Related History: Reports: Abdominal surgery, Diverticulosis, Hiatal hernia Recent Healthcare: Recent doctor visit Similar Sx Previous: Yes Past Medical History Past Medical History 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) ho Bowel malrotation Diverticulitis Irritable bowel syndrome Possible colitis Hypothyroidism Anxiety Depression Chronic sinusitis Fibromyalgia Arthritis GERD Pancreatitis Hiatal hernia Migraines Reports: Migraines Past Surgical History Rectocele Sinus surgery Eye surgery Hernia Laproscopic Alina fundoplication Reports: Appendectomy, , Hysterectomy Family History Father type 1 DM Smoking History Former Smoker Social History Lives with her spouse on [place], 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 Physical Exam Physical Exam Notes: Vital Signs Vital Signs (First) Date Time Temp Pulse Resp B/P Pulse Ox O2 Delivery O2 Flow Rate FiO2 10/11/16 21:53 36.6 98 20 148/101 100 Room Air Initial VS: Reviewed Head / Eyes: Atraumatic, Normocephalic ENT: Conjunctiva normal, No scleral icterus Neck: Supple, Full range of motion Skin: Warm, Dry, No cyanosis Neurologic: Alert, Oriented, Nonfocal Psychiatric: Mood/affect normal, Behavior normal, Normal thought content General/Constitutional: Awake, Alert Distress / Hydration: Positive: Distress mild Behavior: Positive: Anxious Respiratory / Chest: Breath sounds NL, Breath sounds = bilat, No respiratory distress Cardiovascular: Heart rate NL, Regular rhythm, Heart sounds NL Abdomen: Soft, No distention Tenderness/Guarding/Rebound: Positive: Tender diffuse (Moderate) Bowel Sounds / Distention: Positive: Bowel sounds hyperactive Benign scaphoid Interpretation & Diagnostics Lab Results Interpretation Result Diagram: 10/12/16 0032 10/12/16 0032 Test 10/12/16 00:32 10/12/16 01:05 White Blood Count 4.5th/mm3 (3.8-10.1) Red Blood Count 3.75mil/mm3 (3.90-5.20) Hemoglobin 12.4g/dL (12.0-15.6) Hematocrit 36.7% (35.0-46.0) Mean Corpuscular Volume 97.9fL (81-100) Mean Corpuscular Hemoglobin 33.1pg (27.0-35.0) Mean Corpuscular Hemoglobin Concent 33.8% (32.0-37.0) Red Cell Distribution Width 15.4% (12.3-15.4) Platelet Count 290bil/L (150-400) Neutrophils (%) (Auto) 51.9% (40-74) Lymphocytes (%) (Auto) 30.8% (14-46) Monocytes (%) (Auto) 13.7% (4-12) Eosinophils (%) (Auto) 2.9% (0-5) Basophils (%) (Auto) 0.7% (0-3) Prothrombin Time 10.7sec (8.1-12.5) Prothromb Time International Ratio 1.00ratio Sodium Level 138mEq/L (134-144) Potassium Level 3.9mEq/L (3.5-5.2) Chloride Level 100mEq/L (97-108) Carbon Dioxide Level 25mmol/L (18-29) Blood Urea Nitrogen 4mg/dL (6-24) Creatinine 0.38mg/dL (0.57-1.00) Estimat Glomerular Filtration Rate 254mL/min (>59) Glucose Level 125mg/dL (60-99) Lactic Acid Level 1.6mmol/L (0.4-2.0) Calcium Level 9.5mg/dL (8.5-10.1) Magnesium Level 1.5mg/dL (1.6-2.6) Total Bilirubin 0.3mg/dL (0.0-1.2) Aspartate Amino Transf (AST/SGOT) 50U/L (0-50) Alanine Aminotransferase (ALT/SGPT) 21U/L (0-32) Alkaline Phosphatase 127U/L (25-150) Total Protein 6.2g/dL (6.4-8.4) Albumin 3.5g/dL (3.4-5.0) Lipase 5U/L (13-60) Urine Color Yellow (YELLOW) Urine Appearance Clear (CLEAR,HAZY) Urine pH 6.0 (5.0-8.0) Urine Specific [place] <1.005 (1.003-1.035) Urine Protein Negativemg/dL (NEG,TRACE) Urine Glucose (UA) Negativemg/dL (NEGATIVE) Urine Ketones Negativemg/dL (NEGATIVE) Urine Occult Blood Negative (NEGATIVE) Urine Nitrite Negative (NEGATIVE) Urine Bilirubin Negative (NEGATIVE) Urine Urobilinogen Normalmg/dL (NORMAL) Urine Leukocyte Esterase Trace (NEGATIVE) Urine RBC 0-2/hpf (0-2) Urine WBC 0-5/hpf (0-5) Urine Epithelial Cells Few/hpf (NONE-MOD) Urine Crystals None seen (NONE SEEN) Urine Bacteria Few/hpf (NONE-FEW) Urine Hyaline Casts Rare/lpf (NONE) Urine Granular Casts None seen (NONE SEEN) Urine Waxy Casts None seen (NONE SEEN) Urine Red Blood Cell Casts None seen (NONE SEEN) Urine White Blood Cell Casts None seen (NONE SEEN) Urine Mucus None seen (None Seen) Urine Trichomonas None seen (NONE SEEN) Urine Yeast None (NONE SEEN) Urinalysis Comment None Urine Culture Reflexed Indicated X-Ray Abdominal Interpretation ACUTE ABDOMINAL SERIES: Ileus without evidence of obstruction Interpretation / Wet Read by: Wet read ED physician Re-Eval/Medical Decision Med Decision/Clinical Course 55-year-old presents again post laparoscopic surgery for his hernia and malrotation, again with vomiting bloating and abdominal pain. She received narcotics en route here. He is somewhat improved. An additional dose is given here. Flat and erect abdomen shows ileus pattern but no obstruction. She is passing gas and has no signs of obstruction. Did not follow up as directed with her surgeon after last visit. Directed to follow up as directed. Single take-home pack of Vicodin provided with no possibility of renewal. Improved here with nausea relief and fluids. She did get relief also with the GI cocktail. Begun with omeprazole twice daily for a month. Source of Hx: Old records Re-Evaluation/Progress : Time of Eval: 01:45 Patient Status: Condition improved, Pain improved Re-Evaluation/Progress Note: Patient is ready to be discharged. Discussed with patient lab and x-ray results, diagnosis, and plan for discharge. Follow-up and return to the ER instructions given. Patient agrees with plan for care and all questions were addressed. Counseled Regarding: Diagnosis, Lab results, Need for follow-up, When/why to return to ED Discharge & Departure Primary Impression: Peptic gastritis Disposition: Home Discharge Condition All VS Reviewed: Yes Condition: Improved Patient Instructions: Gastritis (ED) Additional Instructions: Do not use Naprosyn, Aleve, ibuprofen or other nonsteroidals. Tylenol is acceptable. Begin Prilosec twice daily. Continue that for at least a month. Call your surgeon's office tomorrow for follow-up tomorrow or Saturday. Sparing use of Vicodin as needed. We cannot renew that from the emergency department. Referrals: OTHER,PHYSICIAN (PCP) (Family) Scribe Attestation Portions of this note were transcribed by Radha Connolly. I, Dr. Juárez, personally performed the history, physical exam, and medical decision-making; I reviewed and confirmed the accuracy of the information in the transcribed note. Signed by: Debra Jose, 10/12/2016, 03:30 Seth Juárez MD Oct 11, 2016 22:38 RADHA CONNOLLY Oct 11, 2016 22:54
[2016-10-11] MEDS ORDERED: Pantoprazole 4 mg/mL 10 mL Inj IVPUSH ONE (22:50)
[2016-10-11] MEDS ORDERED: HYDROmorphone 1 mg/mL Inj IVPUSH ONE (23:05)
[2016-10-11 23:35] VITALS: BP 142/104; PULSE 95; RESP 16; O2SAT 98
[2016-10-12 00:19] VITALS: BP 125/93; PULSE 104; RESP 18; O2SAT 94
[2016-10-12] MEDS ORDERED: 0.9% Sodium Chloride 1,000 ML IV ONE (00:21)
[2016-10-12 00:41] LABS: BASOPHILS % (AUTO) 0.7 % (0-3); EOSINOPHILS % (AUTO) 2.9 % (0-5); MONOCYTES % (AUTO) 13.7 % (4-12); Mean Corpuscular Hemoglobin 33.1 pg (27.0-35.0); Mean Corpuscular Volume 97.9 fL (81-100); NEUTROPHILS % (AUTO) 51.9 % (40-74); Platelet Count 290 bil/L (150-400)
[2016-10-12 01:10] LABS: Magnesium 1.5 mg/dL (1.6-2.6)
[2016-10-12 01:15] LABS: APPEARANCE,URINE CLEAR (CLEAR,HAZY); COLOR,URINE YELLOW (YELLOW); OCCULT BLOOD,URINE NEGATIVE (NEGATIVE); UROBILINOGEN,URINE NORMAL (NORMAL)
[2016-10-12] MEDS ORDERED: HYDROcodone-APAP 5-325 mg Tablet PO ONE (01:45)
[2016-10-12] MEDS ORDERED: _HYDROcodone/APAP 5-325 mg Tablet PO PRN (01:45)
[2016-10-12] MEDS ORDERED: ONDA8TAB10 PO (01:46)
[2016-10-12] MEDS ORDERED: OMEP20TA86 PO (01:46)
[2016-10-12 03:03] VITALS: BP 125/84; PULSE 69; RESP 18; O2SAT 99
--- NOTE | 2016-10-12 10:00 | DRSVH ---
PROCEDURE: X-RAY ACUTE ABDOMINAL SERIES ([id number]) INDICATIONS: pain post op HH and malrotation repair TECHNIQUE: One view chest and two views of the abdomen were acquired. COMPARISON: [facility], CT, CT ABD PELVIS W CON, 10/03/2016, 22:50. [facility], [facility], XR ABD AP 1VW, 09/22/2016, 15:49. [facility], CR, XR CHEST 2VW, 06/13/2016, 17:41 . FINDINGS: Surgical changes and devices: Multiple surgical clips.. Lungs and pleura: Nonspecific bowel gas pattern is present. There is mild prominence of small bowel throughout the abdomen and short nondifferential air-fluid levels are seen on the upright exam, other howard bowel gas pattern is normal. Mediastinum: Mediastinal contours are normal. Heart size is normal. Bones and chest wall: No suspicious bony abnormalities. Soft tissues appear unremarkable. Mild S-s haped curvature of the spine redemonstrated. IMPRESSION: Nonspecific bowel gas pattern. If patient's symptoms persist, recommend repeat imaging or CT. Dictated by: Joseph HE Interpreted: Felice Huston MD on 10/12/2016 at 9:57 Transcribed by: FRANCIE on 10/12/2016 at 9:59 Approved by: Felice Huston M.D. on 10/12/2016 at 16:21
== END 2016-10-12 03:04 | disposition home or self-care (01) ==
LOC: SED 21:46
DX: K29.70 Gastritis, unspecified, without bleeding (principal); K21.9 Gastro-esophageal reflux disease without esophagitis; Z87.891 Personal history of nicotine dependence; Z88.1 Allergy status to other antibiotic agents; Z88.8 Allergy status to other drugs, medicaments and biological substances
CPT/HCPCS: 36415; 74022; 80053; 81000; 83605; 83690; 83735; 85025; 85610; 87086; 87088; 96361; 96374; 96375; 99285; J1170; J2405; J7030

== ENCOUNTER 2016-10-20 14:37 | Emergency (ER) | payer OTHER ==
[~2016-10-20] VITALS: Ht 175.3 cm; Wt 59.5 kg
[~2016-10-20 14:37] MED LIST changes: +OMEP20TA86 PO
[2016-10-20 14:46] VITALS: BP 116/79; PULSE 110; RESP 16; O2SAT 100
[2016-10-20] MEDS ORDERED: 0.9% Sodium Chloride 1,000 ML IV ONE (16:17)
--- NOTE | 2016-10-20 16:34 | ED.REPORT ---
HPI-Abd Pain F 40 and Over Date of Service Oct 20, 2016 ED Provider: Jovon Donnelly PA-C Lanny is a 55-year-old female with a chief complaint of abdominal pain. She reports a history of hiatal hernia surgery 5 weeks ago as well as malrotation, IBS. She complains of lower quadrant abdominal pain associated with nausea which is aggravated by eating. She reports that within 20 seconds of being a small amount of food or liquid she has pain and cramping in her lower abdomen into her pelvis. Her pain is not relieved by defecation. She also complains of dry heaving and bloating. She has been seen several times in this department since her surgery for similar symptoms, without findings. She has plans to follow-up with her primary care provider and her surgeon next week. Reports 10 pound weight loss last month. She reports urinary symptoms of itching, burning, frequency and urgency. She has been treated for these at the walk-in clinic for both a yeast infection and a UTI. She is currently undergoing a 10 day course of antibiotics of which she is unsure the name. Denies fevers/chills, Nursing Notes Stated Complaint: ABDOMINAL PAIN Chief Complaint: Female Abdominal Pain Nursing Notes Reviewed: Yes Allergies: Coded Allergies: droperidol (Verified Allergy, Unknown, 10/03/16) levothyroxine sodium (Verified Allergy, Unknown, Upset stomach, nausea, ) promethazine (Verified Adverse Reaction, Severe, Extrapyramidal Symptoms, 10/03/16) HAS TOLERATED RECENTLY - INGA IN EARLY 20s hydroxyzine (Verified Adverse Reaction, Intermediate, Agitation, 10/03/16) amoxicillin (Verified Adverse Reaction, Mild, STOMACH UPSET, 10/03/16) clavulanic acid (Verified Adverse Reaction, Mild, STOMACH UPSET, 10/03/16) nitrofurantoin (Verified Adverse Reaction, Unknown, Diarrhea, 10/03/16) Scheduled Acetaminophen (Acetaminophen Liquid) 650 Mg/20 Ml Liquid 650 MG PO Q6H Cholecalciferol (Vitamin D3) (Vitamin D3) 2,000 Unit Tablet 2,000 UNIT PO DAILY Duloxetine (Cymbalta) 30 Mg Capsule.dr 30 MG PO DAILY Fluticasone Propionate (Flonase Allergy Relief) 50 Mcg/Actuation [place].susp 9.9 ML NS DAILY Ibuprofen (Children's Ibuprofen) 100 Mg/5 Ml Oral.susp 400 MG PO Q6H Omeprazole (Omeprazole) 20 Mg Capsule.dr 20 MG PO DAILY Omeprazole (Omeprazole) 20 Mg Tablet.dr 20 MG PO BID Sulfamethoxazole/Trimeth 800-160 mg (Bactrim DS) 1 Each Tablet 1 TABLET PO BID Thyroid,Pork ([place] Thyroid) 120 Mg Tablet 120 MG PO QAM Scheduled PRN Cyclobenzaprine (Cyclobenzaprine) 10 Mg Tablet 10 MG PO TID PRN PRN For Spasm Dicyclomine (Dicyclomine) 20 Mg Tablet 20 MG PO QID PRN PRN For GI Cramps Lorazepam (Lorazepam) 0.5 Mg Tablet 0.5 MG PO BID PRN PRN For Anxiety Metoclopramide (Metoclopramide) 5 Mg Tablet 5 MG PO QID PRN PRN For Nausea To be taken 3 times a day, as well as 1/2 hour before bedtime Ondansetron ODT (Ondansetron ODT) 4 Mg Tablet 4 MG PO Q8H PRN PRN For Nausea/ Vomiting Ondansetron ODT (Zofran ODT) 4 Mg Tablet 4 MG PO Q4H PRN PRN For Nausea Ondansetron ODT (Ondansetron ODT) 8 Mg Tab.rapdis 8 MG PO QID PRN PRN For Nausea Ondansetron ODT (Ondansetron ODT) 8 Mg Tab.rapdis 8 MG PO QID PRN PRN For Nausea oxyCODONE (oxyCODONE) 5 Mg/5 Ml Solution 5 MG PO Q4H PRN PRN For Severe Pain oxyCODONE (oxyCODONE) 5 Mg Capsule 1-2 MG PO Q4H PRN PRN For Pain Miscellaneous Medications Ascorbic Acid (Vitamin C) 1,500 Mg Tablet.er 1,000 MG PO General Time Seen by MD: 15:52 Chief Complaint Abdominal pain Sudden in Onset?: No Past Medical History Past Medical History 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) ho Bowel malrotation Diverticulitis Irritable bowel syndrome Possible colitis Hypothyroidism Anxiety Depression Chronic sinusitis Fibromyalgia Arthritis GERD Pancreatitis Hiatal hernia Migraines Reports: Migraines Past Surgical History Rectocele Sinus surgery Eye surgery Hernia Laproscopic Alina fundoplication Reports: Appendectomy, , Hysterectomy Family History Father type 1 DM Smoking History Former Smoker Social History Lives 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 Head: Atraumatic, normocephalic. Eyes: No scleral icterus or injection. No discharge. Vision grossly intact. ENT: Voice clear, hearing grossly intact. Respiratory: Regular rate and rhythm. Breath sounds present, clear to auscultation and equal bilaterally. No respiratory distress. No increased work of breathing, speaks in complete sentences. Cardiovascular: Regular rate and rhythm, without murmur, gallop or rub. No pedal edema. Gastrointestinal: Abdomen flat and moderately tender globally without guarding or rebound. Bowel sounds hyperactive. Skin: Warm and dry. Neurological: Grossly nonfocal. Psychological: Alert and oriented. Speech appropriate, linear and logical. Behavior appropriate. Vital Signs Vital Signs (First) Date Time Temp Pulse Resp B/P Pulse Ox O2 Delivery O2 Flow Rate FiO2 10/20/16 14:46 36.4 110 16 116/79 100 Room Air Interpretation & Diagnostics Lab Results Interpretation Result Diagram: 10/20/16 1648 10/20/16 1648 Test 10/20/16 15:55 10/20/16 16:48 Urine Color [place] (YELLOW) Urine Appearance Hazy (CLEAR,HAZY) Urine pH (5.0-8.0) Urine Specific [place] 1.010 (1.003-1.035) Urine Protein mg/dL (NEG,TRACE) Urine Glucose (UA) mg/dL (NEGATIVE) Urine Ketones mg/dL (NEGATIVE) Urine Occult Blood (NEGATIVE) Urine Nitrite (NEGATIVE) Urine Bilirubin (NEGATIVE) Urine Urobilinogen mg/dL (NORMAL) Urine Leukocyte Esterase (NEGATIVE) Urine RBC 0-2/hpf (0-2) Urine WBC 0-5/hpf (0-5) Urine Epithelial Cells Moderate/hpf (NONE-MOD) Urine Crystals None seen (NONE SEEN) Urine Bacteria Few/hpf (NONE-FEW) Urine Hyaline Casts Rare/lpf (NONE) Urine Granular Casts None seen (NONE SEEN) Urine Waxy Casts None seen (NONE SEEN) Urine Red Blood Cell Casts None seen (NONE SEEN) Urine White Blood Cell Casts None seen (NONE SEEN) Urine Mucus Present (None Seen) Urine Trichomonas None seen (NONE SEEN) Urine Yeast None (NONE SEEN) Urinalysis Comment Color interference Urine Culture Reflexed Not indicated White Blood Count 5.9th/mm3 (3.8-10.1) Red Blood Count 4.13mil/mm3 (3.90-5.20) Hemoglobin 13.7g/dL (12.0-15.6) Hematocrit 40.6% (35.0-46.0) Mean Corpuscular Volume 98.3fL (81-100) Mean Corpuscular Hemoglobin 33.2pg (27.0-35.0) Mean Corpuscular Hemoglobin Concent 33.7% (32.0-37.0) Red Cell Distribution Width 15.5% (12.3-15.4) Platelet Count 310bil/L (150-400) Neutrophils (%) (Auto) 57.5% (40-74) Lymphocytes (%) (Auto) 27.0% (14-46) Monocytes (%) (Auto) 12.3% (4-12) Eosinophils (%) (Auto) 2.5% (0-5) Basophils (%) (Auto) 0.5% (0-3) Sodium Level 132mEq/L (134-144) Potassium Level 4.6mEq/L (3.5-5.2) Chloride Level 93mEq/L (97-108) Carbon Dioxide Level 22mmol/L (18-29) Blood Urea Nitrogen 7mg/dL (6-24) Creatinine 0.39mg/dL (0.57-1.00) Estimat Glomerular Filtration Rate 246mL/min (>59) Glucose Level 120mg/dL (60-99) Lactic Acid Level 1.4mmol/L (0.4-2.0) Calcium Level 9.5mg/dL (8.5-10.1) Magnesium Level 1.8mg/dL (1.6-2.6) Total Bilirubin 0.3mg/dL (0.0-1.2) Aspartate Amino Transf (AST/SGOT) 78U/L (0-50) Alanine Aminotransferase (ALT/SGPT) 34U/L (0-32) Alkaline Phosphatase 146U/L (25-150) Total Protein 7.4g/dL (6.4-8.4) Albumin 4.2g/dL (3.4-5.0) Lipase 6U/L (13-60) Re-Eval/Medical Decision Med Decision/Clinical Course 55-year-old female with a history of hiatal hernia surgery 5 weeks ago and multiple emergency department visits since then presents with abdominal pain. She describes her pain as being in her lower quadrants and pelvis. The patient' s pain is aggravated by eating food. She states that it takes approximately 20 seconds after eating a small amount of food for the pain to start in her lower abdomen. Admits to dry heaving. Physical examination reveals moderate global tenderness without guarding or rebound in her abdomen. Otherwise benign. CBC reveals no leukocytosis. CMP reveals slightly low sodium, chloride, lipase is and creatinine as well as slightly elevated glucose AST (78) ALT(34). Urinalysis is normal. Provided 1 L of normal saline as well as IV Tylenol for analgesia. She had previously been advised by emergency room physicians to avoid NSAIDs. She was seen by Dr. Coreas he advised Reglan 4 times a day as well as 20 mg of Motrin +1000 mg of Tylenol every 6 hours. Offered to admit her overnight for observation, but made it clear there would be no narcotic analgesia. This was declined. Asked her to follow up on Saturday in clinic. She was reportedly amenable. Discharge with instructions for follow-up as well as emergency return precautions. Consultation #1: Referral / Consult Name: Nura Coreas MD Consulted With: Surgeon Call Returned at: 16:45 Note: Dr. Kaur will see the patient in the emergency department when he finishes his procedure. It may be a couple of hours. Consultation #2: Referral / Consult Name: Nura Coreas MD Consulted With: Surgeon Note: Dr. Kaur met with and examine the patient. He suspects postoperative hypomotility. He does not feel further investigation is warranted. Advise Reglan 5 mg 3 times a day +1/2 hour before bedtime. Advises 200 milligrams of ibuprofen +1000 mg of acetaminophen every 6 hours for pain. He does not feel opiates are appropriate to situation, as they would aggravate hypomotility. Offered inpatient observation which was declined. Asked her to follow up in clinic on Saturday with Dr. Gatica Discharge & Departure Primary Impression: Abdominal pain Abdominal location: lower abdomen Qualified Code: R10.30 - Lower abdominal pain, unspecified Disposition: Home Discharge Condition All VS Reviewed: Yes Condition: Stable Patient Instructions: Acute Abdominal Pain (ED) Additional Instructions: Evaluation in the emergency department for lower abdominal pain. History, physical and labs are reassuring that this is not changed significantly since your last visit. We do not believe he her pain is caused by a dangerous condition at this time. He was met with Dr. Kaur. He feels that the appropriate treatment is to take 5 mg of Reglan 3 times a day 1/2 hour before bedtime. you can treat your pain with 200 mg of ibuprofen (Motrin) up to every 6 hours as well as 1000 mg of Tylenol every 6 hours. Please follow-up with your surgeon as planned on Saturday. Return to the emergency department for any new or worsening symptoms including vomiting not controlled with medication , increasing pain, fever. Referrals: Lena Gatica MD EDSupervising Provider for APC: Chris Drew DO copies to: Lena Gatica MD, Seth PA-C Oct 20, 2016 16:34
[2016-10-20] MEDS ORDERED: Acetaminophen IV 1,000 MG in IV Premix 1 EACH IV ONE (16:35)
[2016-10-20] MEDS ORDERED: Ondansetron 2 mg/mL 2 mL Inj ONE (16:49)
[2016-10-20 17:00] LABS: BASOPHILS % (AUTO) 0.5 % (0-3); EOSINOPHILS % (AUTO) 2.5 % (0-5); MONOCYTES % (AUTO) 12.3 % (4-12); Mean Corpuscular Hemoglobin 33.2 pg (27.0-35.0); Mean Corpuscular Volume 98.3 fL (81-100); NEUTROPHILS % (AUTO) 57.5 % (40-74); Platelet Count 310 bil/L (150-400)
[2016-10-20 17:21] LABS: APPEARANCE,URINE HAZY (CLEAR,HAZY); COLOR,URINE ORANGE (YELLOW)
[2016-10-20 17:24] LABS: Magnesium 1.8 mg/dL (1.6-2.6)
[2016-10-20 18:49] VITALS: BP 124/88; PULSE 84; RESP 16; O2SAT 97
[2016-10-20 18:50] VITALS: BP 124/88; PULSE 84; RESP 16; O2SAT 97
[2016-10-20] MEDS ORDERED: MTC5T PO (19:04)
--- NOTE | 2016-10-20 20:10 | CONS ---
[address] [address] CONSULTATION REPORT PATIENT: AMANDO CLEMENS : 1960 MR#: [id number] ADMIT: 10/20/2016 JOB ID: [id number] DATE OF SERVICE: CHIEF COMPLAINT/IDENTIFICATION: The patient comes to the emergency room. She is roughly one month status post laparoscopic Alina fundoplication by Dr. Gatica. She has known malrotation and previous pancreatitis, likely related to alcohol intake with a chronic pancreatic pseudocyst. She called me earlier in the day to say that she was having significant postprandial pain and bloating. It sounds as if it has been going on for several weeks and she has made several ER visits and seen her primary care provider but tells me she only saw Dr. Gatica about a week and a half after the surgery and did not discuss these symptoms with him. What she describes is that intermittently when she eats any small amount she will immediately feel abdominal pain and gas, though she does not particularly describe it as bloating. She does not burp and she cannot throw up. She tells me that she no longer has the symptoms of her GE reflux that she used to. She tells me that she was told by another physician that she had slow emptying of her stomach. I spoke with her this morning and we discussed the possible workup and I suggested that she could get in to see Dr. Gatica early this week but that she should come to the emergency department if she felt that her pain was uncontrollable. She has come to the emergency department where she has received some intravenous Tylenol with some moderate relief. She has received a liter of IV fluid. On questioning her, she has not been drinking alcohol and this is not at all the pain like her previous pancreatitis. I have reviewed both her CAT scan from September 22 and October 03. Her abdominal exam is benign. She is not particularly bloated or tympanic. She has no focal tenderness of significance. LABORATORY DATA: Show a normal white count, hematocrit of 40, slightly low sodium and chloride but really unremarkable labs. Her lipase is 6. IMPRESSION AND PLAN: I have her not repeated any imaging. Based on her history and review of the two CAT scans, I do believe that she may have some element of gas bloat, may have some element of delayed gastric emptying. I have suggested that we give her a trial of Reglan and I have offered this to her as an outpatient or if she feels that the pain is so much that she does not want to be discharged I would admit her, give her IV hydration and start her on q.i.d. Reglan and see how she does. She may benefit from an outpatient gastric emptying study as well, and we have discussed this. She also may benefit from endoscopy; it appears on her last CAT scan that she may have retained food. I have suggested that we not give her narcotics, either intravenous in the hospital or p.o., as I think that would just complicate the picture and would not help address any gastric physiology if that is the cause of her pain. She is amenable to this. I have asked Dr. Donnelly in the emergency department to give her a prescription for Reglan 5 mg p.o. t.i.d. prior to meals and q.a.c. and we will see how this does. She will contact Dr. Gatica's office on Saturday to get in to see him as soon as possible. I will let Dr. Gatica know that I saw her this weekend.
== END 2016-10-20 19:13 | disposition home or self-care (01) ==
LOC: SED 14:37
DX: R10.30 Lower abdominal pain, unspecified (principal); R11.0 Nausea; R63.4 Abnormal weight loss; E03.9 Hypothyroidism, unspecified; K21.9 Gastro-esophageal reflux disease without esophagitis; Z98.890 Other specified postprocedural states; Z87.891 Personal history of nicotine dependence; Z88.8 Allergy status to other drugs, medicaments and biological substances; Z88.1 Allergy status to other antibiotic agents
CPT/HCPCS: 36415; 80053; 81000; 83605; 83690; 83735; 85025; 90791; 96361; 96374; 96375; 99285; J0131; J2405; J7030

== ENCOUNTER 2016-10-30 19:16 | Emergency (ER) | payer OTHER ==
[~2016-10-30] VITALS: Ht 175.3 cm; Wt 61.4 kg
[~2016-10-30 19:16] MED LIST changes: +MTC5T PO
[2016-10-30 19:52] VITALS: BP 160/104; PULSE 119; RESP 16; O2SAT 98
[2016-10-30 20:43] LABS: BASOPHILS % (AUTO) 0.2 % (0-3); EOSINOPHILS % (AUTO) 0.3 % (0-5); MONOCYTES % (AUTO) 8.9 % (4-12); Mean Corpuscular Hemoglobin 33.5 pg (27.0-35.0); Mean Corpuscular Volume 96.4 fL (81-100); NEUTROPHILS % (AUTO) 72.2 % (40-74); Platelet Count 318 bil/L (150-400)
--- NOTE | 2016-10-30 20:45 | ED.REPORT ---
HPI-Abd Pain F 40 and Over Date of Service Oct 30, 2016 ED Provider: Geneva Jerome Patient is a 55 year old female with a history of GI malrotation who presents to the ED complaining of severe epigastric pain s/p hiatal hernia repair 6 weeks ago. Associated symptoms include nausea, diaphoresis, chills, and some back pain. She has had pain on and off since her surgery but for the past 4 days her pain has been worsening, constant, and moved from her lower abdomen to epigastric region. She denies vomiting, fever, extremity swelling, or any other symptoms. She has lost 15 lbs since her surgery because she cannot eat. PCP appointment tomorrow. Nursing Notes Stated Complaint: CHEST PAIN, ABDOMINAL PAIN, POST-OP 6 WEEKS Chief Complaint: Female Abdominal Pain Nursing Notes Reviewed: Yes Allergies: Coded Allergies: droperidol (Verified Allergy, Unknown, 10/03/16) levothyroxine sodium (Verified Allergy, Unknown, Upset stomach, nausea, ) promethazine (Verified Adverse Reaction, Severe, Extrapyramidal Symptoms, 10/03/16) HAS TOLERATED RECENTLY - INGA IN EARLY 20s hydroxyzine (Verified Adverse Reaction, Intermediate, Agitation, 10/03/16) amoxicillin (Verified Adverse Reaction, Mild, STOMACH UPSET, 10/03/16) clavulanic acid (Verified Adverse Reaction, Mild, STOMACH UPSET, 10/03/16) nitrofurantoin (Verified Adverse Reaction, Unknown, Diarrhea, 10/03/16) Scheduled Acetaminophen (Acetaminophen Liquid) 650 Mg/20 Ml Liquid 650 MG PO Q6H Cholecalciferol (Vitamin D3) (Vitamin D3) 2,000 Unit Tablet 2,000 UNIT PO DAILY Duloxetine (Cymbalta) 30 Mg Capsule.dr 30 MG PO DAILY Fluticasone Propionate (Flonase Allergy Relief) 50 Mcg/Actuation [place].susp 9.9 ML NS DAILY Hyoscyamine Liquid (Hyoscyamine Liquid) 0.125 Mg/1 Ml Drops 0.125 MG PO Q4H Ibuprofen (Children's Ibuprofen) 100 Mg/5 Ml Oral.susp 400 MG PO Q6H Omeprazole (Omeprazole) 20 Mg Capsule.dr 20 MG PO DAILY Omeprazole (Omeprazole) 20 Mg Tablet.dr 20 MG PO BID Sulfamethoxazole/Trimeth 800-160 mg (Bactrim DS) 1 Each Tablet 1 TABLET PO BID Thyroid,Pork ([place] Thyroid) 120 Mg Tablet 120 MG PO QAM Scheduled PRN Cyclobenzaprine (Cyclobenzaprine) 10 Mg Tablet 10 MG PO TID PRN PRN For Spasm Dicyclomine (Dicyclomine) 20 Mg Tablet 20 MG PO QID PRN PRN For GI Cramps Hydrocodone-Acetaminophen 5-325 mg (Hydrocodone-Acetaminophen 5-325 mg) 1 Each Tablet 1 TABLET PO Q6H PRN PRN For Pain Lorazepam (Lorazepam) 0.5 Mg Tablet 0.5 MG PO BID PRN PRN For Anxiety Metoclopramide (Metoclopramide) 5 Mg Tablet 5 MG PO QID PRN PRN For Nausea To be taken 3 times a day, as well as 1/2 hour before bedtime Ondansetron ODT (Ondansetron ODT) 4 Mg Tablet 4 MG PO Q8H PRN PRN For Nausea/ Vomiting Ondansetron ODT (Zofran ODT) 4 Mg Tablet 4 MG PO Q4H PRN PRN For Nausea Ondansetron ODT (Ondansetron ODT) 8 Mg Tab.rapdis 8 MG PO QID PRN PRN For Nausea Ondansetron ODT (Ondansetron ODT) 8 Mg Tab.rapdis 8 MG PO QID PRN PRN For Nausea oxyCODONE (oxyCODONE) 5 Mg/5 Ml Solution 5 MG PO Q4H PRN PRN For Severe Pain oxyCODONE (oxyCODONE) 5 Mg Capsule 1-2 MG PO Q4H PRN PRN For Pain Miscellaneous Medications Ascorbic Acid (Vitamin C) 1,500 Mg Tablet.er 1,000 MG PO General Time Seen by MD: 20:44 Chief Complaint Abdominal pain Hx Obtained From: Patient Arrived By: Walk-in Sudden in Onset?: Yes Onset Occurred: 4 days ago Symptom Duration: Since onset Similar Sx Previous: Yes Risk Factors )( AAA Risk Stratification SmokingNo Hypertension Risk factors reviewed Past Medical History Past Medical History 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) ho Bowel malrotation Diverticulitis Irritable bowel syndrome Possible colitis Hypothyroidism Anxiety Depression Chronic sinusitis Fibromyalgia Arthritis GERD Pancreatitis Hiatal hernia Migraines Reports: Migraines Past Surgical History Rectocele Sinus surgery Eye surgery Hernia Laproscopic Alina fundoplication Abdominoplasty Bladder suspension Reports: Appendectomy, , Hysterectomy, Tonsillectomy Family History Father type 1 DM Smoking History Former Smoker Social History Lives with her spouse on [address], 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 Skin: Reports Diaphoresis Physical Exam Vital Signs Vital Signs (First) Date Time Temp Pulse Resp B/P Pulse Ox O2 Delivery O2 Flow Rate FiO2 10/30/16 19:52 36.1 119 16 160/104 98 Room Air Initial VS: Reviewed, Vital signs abnormal Head / Eyes: Atraumatic, Normocephalic Neck: Full range of motion Skin: Warm, Dry Neurologic: Alert, Oriented, Nonfocal Psychiatric: Mood/affect normal, Behavior normal, Normal thought content General/Constitutional: Awake, Alert, Well developed Respiratory / Chest: No respiratory distress Cardiovascular: Peripheral circulation NL Tenderness/Guarding/Rebound: Positive: Tender diffuse Diffuse tenderness worse in the LLQ and epigastric regions. Back: Inspection NL Interpretation & Diagnostics Lab Results Interpretation Result Diagram: 10/30/16203710/30/162037 Test 10/30/16 20:38 10/30/16 22:51 White Blood Count 10.2th/mm3 (3.8-10.1) Red Blood Count 4.42mil/mm3 (3.90-5.20) Hemoglobin 14.8g/dL (12.0-15.6) Hematocrit 42.6% (35.0-46.0) Mean Corpuscular Volume 96.4fL (81-100) Mean Corpuscular Hemoglobin 33.5pg (27.0-35.0) Mean Corpuscular Hemoglobin Concent 34.7% (32.0-37.0) Red Cell Distribution Width 14.5% (12.3-15.4) Platelet Count 318bil/L (150-400) Neutrophils (%) (Auto) 72.2% (40-74) Lymphocytes (%) (Auto) 18.2% (14-46) Monocytes (%) (Auto) 8.9% (4-12) Eosinophils (%) (Auto) 0.3% (0-5) Basophils (%) (Auto) 0.2% (0-3) Prothrombin Time 10.2sec (8.1-12.5) Prothromb Time International Ratio 0.95ratio Sodium Level 134mEq/L (134-144) Potassium Level 4.1mEq/L (3.5-5.2) Chloride Level 93mEq/L (97-108) Carbon Dioxide Level 24mmol/L (18-29) Blood Urea Nitrogen 9mg/dL (6-24) Creatinine 0.34mg/dL (0.57-1.00) Estimat Glomerular Filtration Rate 289mL/min (>59) Glucose Level 122mg/dL (60-99) Calcium Level 9.4mg/dL (8.5-10.1) Magnesium Level 1.4mg/dL (1.6-2.6) Total Bilirubin 0.3mg/dL (0.0-1.2) Aspartate Amino Transf (AST/SGOT) 39U/L (0-50) Alanine Aminotransferase (ALT/SGPT) 29U/L (0-32) Alkaline Phosphatase 116U/L (25-150) Troponin T < 0.010ug/L (0.0-0.011) Pro-B-Type Natriuretic Peptide 2823pg/mL (0-249) Total Protein 7.6g/dL (6.4-8.4) Albumin 4.3g/dL (3.4-5.0) Lipase 5U/L (13-60) Hold Singh Top Tube Received (Received) Alcohols < 10mg/dL (0-10) ECG Interpretation ECG Interpretation: Sinus tachycardia rate 108 incresed QTC clipped T waves v3-v6 Time: 20:23 Interpreted by: ED physician ECG Interpretation: sinus rate 84 Time: 21:50 Interpreted by: ED physician X-Ray Chest Interpretation Chest Xray Interpretation: IMPRESSION: No acute cardiopulmonary disease. Dictated by: Onel Willis M.D. on 10/30/2016 at 21:24 Approved by: Onel Willis M.D. on 10/30/2016 at 21:25 View: Portable, 1 view Interpretation / Wet Read by: Interpret - Radiologist CT Abd / Pelvis Interpretation This patient demonstrates a rather unusual picture of several congenital abnormalities. Most unusual of which is that the spleen is interposed between the liver and the right kidney. There is also malrotation of the bowel without evidence of obstruction. There are some diverticula without CT evidence of diverticulitis. There is a cyst in what I believe is the tail of the pancreas probably representing an old pseudocyst. Seth Villalobos M.D. Re-Eval/Medical Decision Med Decision/Clinical Course The patient presents with abdominal pain and epigastric pain. She has an abnormal EKG. Her symptoms do not seem consistent with ischemia. The patient' s troponin is negative and given 4 days of pain she is ruled out for AR. Differential diagnoses considered were obstruction, gastric outlet obstruction, reflux, pancreatitis, peptic ulcer disease. The patient improved with treatment here. She is becoming very frustrated and wants to see a railroad design consultant. She has had bilateral with her primary care physician tomorrow. Further studies is recommended prior to this visit and has not been scheduled. I explained to her that she does need to have further testing but does not currently meet admission criteria. Re-Evaluation/Progress : Time of Eval: 23:58 )( Re-Eval Abdomen: Soft Re-Evaluation/Progress Note: Rechecked patient. Discussed consultation with Lyudmila. Discussed plan for discharge. Patient understands and agrees with plan. All questions addressed at this time. Consultation : Referral / Consult Name: Nura Coreas MD Consulted With: Surgeon Call Returned at: 23:52 Note: Discussed patient's case. Suggests seeing Dr. Daniel Juarez, Dr. Paul Nicole, or Dr. Marie for and endoscopy and gastric emptying. Pt's PCP can set up those appointments for her. Counseled Regarding: Diagnosis, Lab results, Need for follow-up, When/why to return to ED Discharge & Departure Primary Impression: Abdominal pain Abdominal location: generalized Qualified Code: R10.84 - Generalized abdominal pain Disposition: Home Discharge Condition All VS Reviewed: Yes Condition: Stable Additional Instructions: Thank you for entrusting us with your care. Keep your follow up appointment with your primary care provider tomorrow to set up an appointment for an endoscopy and gastric emptying study. These appointments can be with Dr. Daniel Ca at or Dr. Paul Nicole at [facility]. You may consult Dr. Gatica or Dr. Marie for a second opinion. Talk to your doctor about pain control. Continue to take Reglan for your symptoms. You may try the new medications as prescribed to see if they help. Return to the emergency department if you develop worsening or concerning symptoms. Referrals: OTHER,PHYSICIAN (PCP) (Family) Scribe Attestation Portions of this note were transcribed by Silvano Arias. I, Dr. Jerome personally performed the history, physical exam and medical decision-making; I reviewed and confirmed the accuracy of the information in the transcribed note. Signed by: Silvano Arias 10/31/16, 0006 Geneva Jerome MD Oct 30, 2016 20:45 SILVANO ARIAS Oct 30, 2016 21:08
[2016-10-30] MEDS ORDERED: MeTOProlol 1 mg/mL 5 mL Inj IVPUSH PRN (21:00)
[2016-10-30 21:05] LABS: TROPONIN T < 0.010 ug/L (0.0-0.011)
[2016-10-30 21:13] LABS: Magnesium 1.4 mg/dL (1.6-2.6)
[2016-10-30] MEDS ORDERED: 0.9% Sodium Chloride 1,000 ML IV ONE ×2 (21:15→23:50)
[2016-10-30] MEDS ORDERED: Ondansetron 2 mg/mL 2 mL Inj IVPUSH PRN (21:15)
[2016-10-30] MEDS ORDERED: HYDROmorphone 0.5 mg/0.5 mL iSecure Syringe IVPUSH PRN (21:15)
[2016-10-30 21:23] LABS: INR 0.95 ratio
--- NOTE | 2016-10-30 21:26 | DRSVH ---
PROCEDURE: X-RAY CHEST ONE VIEW, PORTABLE ([id number]) INDICATIONS: 55 year-old female with chest pain after hiatal hernia repair 6 weeks ago. TECHNIQUE: One view of the chest was acquired. COMPARISON: [facility], CR, XR ABD ACUTE SERIES 3VW, 10/11/2016, 23:03. [facility], CR, XR CHEST 1VW (PORTABLE), 06/21/2016, 16:26. [facility], CR, XR CHEST 2VW, , 17:41. FINDINGS: Surgical changes and devices: None. Lungs and pleura: No pleural effusions or pneumothorax. Lungs are clear. Mediastinum: Mediastinal contours appear normal. Heart size is normal. Bones and chest wall: 1.4 cm incidental enchondroma is noted within the right humeral head and neck. Overlying soft tissues appear unremarkable. IMPRESSION: No acute cardiopulmonary disease. Dictated by: Onel Willis M.D. on 10/30/2016 at 21:24 Approved by: Onel Willis M.D. on 10/30/2016 at 21:25
[2016-10-30] MEDS ORDERED: Iohexol 300 mg/mL 30 mL Inj PO ONE (21:40)
[2016-10-30] MEDS ORDERED: HYDROmorphone 0.5 mg/0.5 mL iSecure Syringe IVPUSH ONE (22:20)
[2016-10-31] MEDS ORDERED: HYDR-4003 PO (00:10)
[2016-10-31] MEDS ORDERED: HYOS0.1297 PO (00:10)
[2016-10-31 01:25] VITALS: BP 122/74; PULSE 78; RESP 16; O2SAT 98
--- NOTE | 2016-10-31 08:46 | DRSVH ---
PROCEDURE: CT ABDOMEN AND PELVIS WITH CONTRAST ([id number]) INDICATIONS: vomiting, recent surg TECHNIQUE: After the administration of oral and intravenous contrast, 5 mm thick sections acquired from the diap hragms to the symphysis. 5 mm thick coronal and sagittal reformats were performed. For radiation do se reduction, the following was used: automated exposure control, adjustment of mA and/or kV accordi ng to patient size. COMPARISON: [facility], CT, CT ABD PELVIS W CON, 09/22/2016, 14:12. [facility], CT, CT ABD PELVIS W CON, 10/03/2016, 22:50. FINDINGS: Image quality: Excellent. ABDOMEN: Lung bases: Atelectasis noted in the dependent portion of the lung bases bilaterally right greater th an left. Heart size is normal. 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 Liver and gallbladder are centrally located and a right-sided spleen is noted. Wedge-shaped hypodensi ties in the left lobe of the liver are less conspicuous on the current study. Gallbladder is within normal limits. Biliary system is non-dilated. Pancreas is atrophied. There is a 3.9 cm in maximum d iameter pseudocyst in the tail of pancreas which is not significantly changed compared to 10/03/2016. No adrenal nodules. Kidneys are normal in size and enhancement, without hydronephrosis. Peritoneum and bowel: Large and small bowel loops are mild to rotated with cecum in the left lower q uadrant. Scattered diverticuli noted in the colon without evidence of diverticulitis. Postsurgical ch anges compatible with Alina fundoplication are noted. Stomach, small bowel, and colon loops are norm al in caliber and wall thickness. No free fluid or air. Nodes and vessels: No retroperitoneal or mesenteric adenopathy. Aorta and inferior vena cava are no rmal in caliber. 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 Miscellaneous: No ventral hernias. Multiple surgical clips noted in the right groin which are stable compared to prior examinations. Surgical clips in the lower right hemipelvis are stable compared to prior examinations. PELVIS: Genitourinary: Bladder wall thickness is normal. Miscellaneous: No inguinal hernias or adenopathy. Bones: No suspicious bony lesions. No vertebral body compression fractures. IMPRESSION: 1. 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 2. Congenital large and small bowel malrotation with cecum in the left lower quadrant. 3. Colonic diverticulosis without evidence of diverticulitis. 4. Pancreatic pseudocyst not significantly changed compared to 10/03/2016. 5. Hypoattenuating hepatic lesions less conspicuous compared to 10/03/2016 likely representing evolvin g infarcts or contusions. 6. No evidence of bowel obstruction. Dictated by: Joanne Bruce MD, PhD on 10/31/2016 at 8:31 Approved by: Joanne Bruce MD, PhD on 10/31/2016 at 8:44
== END 2016-10-31 01:41 | disposition home or self-care (01) ==
LOC: SED 19:16
DX: R10.84 Generalized abdominal pain (principal); K21.9 Gastro-esophageal reflux disease without esophagitis; Z90.710 Acquired absence of both cervix and uterus; Z88.1 Allergy status to other antibiotic agents; Z88.5 Allergy status to narcotic agent; Z88.8 Allergy status to other drugs, medicaments and biological substances; Z87.19 Personal history of other diseases of the digestive system; Z87.891 Personal history of nicotine dependence
CPT/HCPCS: 36415; 71010; 74177; 80053; 82948; 83690; 83735; 83880; 84484; 85025; 85610; 93005; 96361; 96374; 96375; 96376; 99285; G0480; J1170; J2405; J7030; Q9967

== ENCOUNTER 2016-11-07 13:06 | Inpatient (IN) | payer OTHER ==
[~2016-11-07] VITALS: Ht 175.3 cm; Wt 58.6 kg
[~2016-11-07 13:06] MED LIST changes: +HYDR-4003 PO; +HYOS0.1297 PO
[2016-11-07 13:18] VITALS: BP 144/96; PULSE 124; RESP 20; O2SAT 99
[2016-11-07 14:12] LABS: BASOPHILS % (AUTO) 0.6 % (0-3); MONOCYTES % (AUTO) 9.6 % (4-12); Mean Corpuscular Hemoglobin 33.2 pg (27.0-35.0); Mean Corpuscular Volume 98.6 fL (81-100); NEUTROPHILS % (AUTO) 64.8 % (40-74); Platelet Count 338 bil/L (150-400)
[2016-11-07 14:32] LABS: Magnesium 1.7 mg/dL (1.6-2.6)
[2016-11-07] MEDS ORDERED: 0.9% Sodium Chloride 1,000 ML IV ONE (14:34)
[2016-11-07] MEDS ORDERED: Ondansetron 2 mg/mL 2 mL Inj IVPUSH ONE (14:35)
--- NOTE | 2016-11-07 14:39 | ED.REPORT ---
HPI-General Illness Date of Service Nov 07, 2016 ED Provider: Philly Disla MD Pt is a 55 y/o female w/ a hx of partial situs inversus, bowel malrotation, diverticulitis, IBS, hernia s/p repair, presenting to the ED c/o intermittent abdominal pain onset 6 weeks ago. The patient had a Alina fundoplication for a hiatal hernia surgical repair performed by Dr. Gatica 6 weeks ago and since then has been experiencing intermittent cramping abdominal pain which she describes as a rubber band constricting her abdomen. She discussed this with Dr. Gatica who told her that the pain is not caused by the surgery. She has been worked up for this multiple times in the ED and was recommended to seek outpatient treatment with her PCP. Her PCP was suppose to refer her to GI but there was some confusion so her BHARATH consultation was not made. She was going to a PCP appointment today to sort out the consultation issue and discuss her recent complaints but she was out of office because of an illness so she was unable to be seen and decided to come here for pain management. She c/o associated 15 lb weight loss because of loss of appetite, diarrhea, nausea, vomiting. Pt denies fever, chills. She is currently taking Gabapentin, Cymbalta , and Levothyroxine. She is using no pain medication. She denies any THC use. PCP: Dr. Taylor at Nursing Notes Stated Complaint: ABDOMINAL/BACK PAIN Chief Complaint: Female Abdominal Pain Nursing Notes Reviewed: Yes Allergies: Coded Allergies: droperidol (Verified Allergy, Unknown, 10/03/16) levothyroxine sodium (Verified Allergy, Unknown, Upset stomach, nausea, ) promethazine (Verified Adverse Reaction, Severe, Extrapyramidal Symptoms, 10/03/16) HAS TOLERATED RECENTLY - INGA IN EARLY 20s hydroxyzine (Verified Adverse Reaction, Intermediate, Agitation, 10/03/16) amoxicillin (Verified Adverse Reaction, Mild, STOMACH UPSET, 10/03/16) clavulanic acid (Verified Adverse Reaction, Mild, STOMACH UPSET, 10/03/16) nitrofurantoin (Verified Adverse Reaction, Unknown, Diarrhea, 10/03/16) Scheduled Acetaminophen (Acetaminophen Liquid) 650 Mg/20 Ml Liquid 650 MG PO Q6H Cholecalciferol (Vitamin D3) (Vitamin D3) 2,000 Unit Tablet 2,000 UNIT PO DAILY Duloxetine (Cymbalta) 30 Mg Capsule.dr 30 MG PO DAILY Fluticasone Propionate (Flonase Allergy Relief) 50 Mcg/Actuation [place].susp 9.9 ML NS DAILY Hyoscyamine Liquid (Hyoscyamine Liquid) 0.125 Mg/1 Ml Drops 0.125 MG PO Q4H Ibuprofen (Children's Ibuprofen) 100 Mg/5 Ml Oral.susp 400 MG PO Q6H Omeprazole (Omeprazole) 20 Mg Capsule.dr 20 MG PO DAILY Omeprazole (Omeprazole) 20 Mg Tablet.dr 20 MG PO BID Sulfamethoxazole/Trimeth 800-160 mg (Bactrim DS) 1 Each Tablet 1 TABLET PO BID Thyroid,Pork ([place] Thyroid) 120 Mg Tablet 120 MG PO QAM Scheduled PRN Cyclobenzaprine (Cyclobenzaprine) 10 Mg Tablet 10 MG PO TID PRN PRN For Spasm Dicyclomine (Dicyclomine) 20 Mg Tablet 20 MG PO QID PRN PRN For GI Cramps Hydrocodone-Acetaminophen 5-325 mg (Hydrocodone-Acetaminophen 5-325 mg) 1 Each Tablet 1 TABLET PO Q6H PRN PRN For Pain Lorazepam (Lorazepam) 0.5 Mg Tablet 0.5 MG PO BID PRN PRN For Anxiety Metoclopramide (Metoclopramide) 5 Mg Tablet 5 MG PO QID PRN PRN For Nausea To be taken 3 times a day, as well as 1/2 hour before bedtime Ondansetron ODT (Ondansetron ODT) 4 Mg Tablet 4 MG PO Q8H PRN PRN For Nausea/ Vomiting Ondansetron ODT (Zofran ODT) 4 Mg Tablet 4 MG PO Q4H PRN PRN For Nausea Ondansetron ODT (Ondansetron ODT) 8 Mg Tab.rapdis 8 MG PO QID PRN PRN For Nausea Ondansetron ODT (Ondansetron ODT) 8 Mg Tab.rapdis 8 MG PO QID PRN PRN For Nausea oxyCODONE (oxyCODONE) 5 Mg/5 Ml Solution 5 MG PO Q4H PRN PRN For Severe Pain oxyCODONE (oxyCODONE) 5 Mg Capsule 1-2 MG PO Q4H PRN PRN For Pain Miscellaneous Medications Ascorbic Acid (Vitamin C) 1,500 Mg Tablet.er 1,000 MG PO General Time Seen by MD: 14:38 Chief Complaint Abdominal pain Hx Obtained From: Patient Arrived By: Walk-in Sudden in Onset?: No Onset Occurred: More than a week ago... (6 weeks) Symptom Duration: Since onset Location: : Abdomen Quality: Cramping, Painful Severity: Current: Severe Severity: Maximum: Severe Recent Healthcare: Recent testing, Prior workup Similar Sx Previous: Yes Past Medical History Past Medical History 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) ho Bowel malrotation Diverticulitis Irritable bowel syndrome Possible colitis Hypothyroidism Anxiety Depression Chronic sinusitis Fibromyalgia Arthritis GERD Pancreatitis Hiatal hernia s/p repair Migraines Past Surgical History Rectocele Sinus surgery Eye surgery Hernia Laproscopic Alina fundoplication Abdominoplasty Bladder suspension Reports: Appendectomy, , Hysterectomy, Tonsillectomy Family History Father type 1 DM Smoking History Former Smoker Social History Lives with her spouse on [address], 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 Physical Exam Vital Signs Vital Signs Date Time Temp Pulse Resp B/P Pulse Ox O2 Delivery O2 Flow Rate FiO2 11/07/16 17:43 36.5 114 20 136/87 95 Room Air 11/07/16 13:18 36.2 124 20 144/96 99 Room Air Initial VS: Reviewed, Vital signs abnormal Head / Eyes: Atraumatic, Normocephalic, PERRL ENT: Mucous membranes moist, Conjunctiva normal, No scleral icterus Neck: Supple, Full range of motion Respiratory: Breath sounds normal, Clear to auscultation, No respiratory distress Cardiovascular: Regular rate & rhythm, Heart sounds normal, Intact distal pulses Extremities: Vascular intact, Neuro intact, No swelling, No tenderness Skin: Warm, Dry, No cyanosis Neurologic: Alert, Oriented, Nonfocal Psychiatric: Mood/affect normal, Behavior normal, Normal thought content General/Constitutional: Awake, Alert, Cooperative, Not toxic appearing Distress / Hydration: Positive: Distress moderate Appearance / Presentation: Positive: Uncomfortable Actively retching Abdomen: Atraumatic, Soft, No rebound, No distention Bowel Sounds / Distention: Positive: Bowel sounds hypoactive Exquisitely tender about the RLQ with guarding throughout entire abdomen. Interpretation & Diagnostics Lab Results Interpretation Result Diagram: 11/07/16 1404 11/07/16 1404 Test 11/07/16 14:04 11/07/16 14:10 White Blood Count 9.1th/mm3 (3.8-10.1) Red Blood Count 4.28mil/mm3 (3.90-5.20) Hemoglobin 14.2g/dL (12.0-15.6) Hematocrit 42.2% (35.0-46.0) Mean Corpuscular Volume 98.6fL (81-100) Mean Corpuscular Hemoglobin 33.2pg (27.0-35.0) Mean Corpuscular Hemoglobin Concent 33.6% (32.0-37.0) Red Cell Distribution Width 14.6% (12.3-15.4) Platelet Count 338bil/L (150-400) Neutrophils (%) (Auto) 64.8% (40-74) Lymphocytes (%) (Auto) 22.9% (14-46) Monocytes (%) (Auto) 9.6% (4-12) Eosinophils (%) (Auto) 2.0% (0-5) Basophils (%) (Auto) 0.6% (0-3) Sodium Level 136mEq/L (134-144) Potassium Level 3.9mEq/L (3.5-5.2) Chloride Level 96mEq/L (97-108) Carbon Dioxide Level 20mmol/L (18-29) Blood Urea Nitrogen 7mg/dL (6-24) Creatinine 0.41mg/dL (0.57-1.00) Estimat Glomerular Filtration Rate 232mL/min (>59) Glucose Level 138mg/dL (60-99) Calcium Level 9.5mg/dL (8.5-10.1) Magnesium Level 1.7mg/dL (1.6-2.6) Total Bilirubin 0.4mg/dL (0.0-1.2) Aspartate Amino Transf (AST/SGOT) 65U/L (0-50) Alanine Aminotransferase (ALT/SGPT) 34U/L (0-32) Alkaline Phosphatase 136U/L (25-150) Total Protein 7.6g/dL (6.4-8.4) Albumin 4.2g/dL (3.4-5.0) Lipase 5U/L (13-60) Hold Singh Top Tube Received (Received) Hold Urine Received (Received) CT Abd / Pelvis Interpretation IMPRESSION: 1. New mild right hemiabdominal small bowel distention, which may indicate mild/early small bowel obstruction, or gastroenteritis. 2. 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 3. No change in indeterminate low density hepatic focus; recommend attention to this region on followup imaging studies. 4. Appendix not seen; no evidence of appendicitis. 5. No change in low density focus involving the pancreatic head; recommend attention to this region on followup imaging studies. Dictated by: Natty Briceno M.D. on 11/07/2016 at 16:01 Approved by: Natty Briceno M.D. on 11/07/2016 at 16:10 Study type: Abdominal CT IV contrast Interpretation / Wet Read by: Interpret - Radiologist Re-Eval/Medical Decision Time of Eval: 17:14 Re-Evaluation/Progress Note: Pt rechecked. Pain is much decreased. She is comfortable now. Discussed imaging results and admission vs. discharge. She would like to be admitted for pain management and she states if her pain returned she would just end up back in the ED. I explained that she may not have any procedures performed by surgery or GI while admitted because there may not be an acute finding. She understands this and would like to stay to meet with GI and surgery for further evaluations. Consultation #1: Referral / Consult Name: Lena Gatica MD Consulted With: Surgeon Call Returned at: 16:32 Etl Application Developer: Will see patient, Agrees with eval, Agrees with plan Note: Will evaluate patient in the ED and consult during admit Consultation #2: Referral / Consult Name: Nura Couch MD Call Returned at: 17:38 Etl Application Developer: Will see patient, Agrees with eval, Agrees with plan Note: Will consult during admission. Consultation #3: Referral / Consult Name: Nura Adorno MD Call Returned at: 17:48 Etl Application Developer: Will see patient, Agrees with eval, Agrees with plan, Accepts admit Counseled Regarding: Diagnosis, Lab results, Need for admission Discharge & Departure Primary Impression: Abdominal pain Abdominal location: generalized Qualified Code: R10.84 - Generalized abdominal pain Additional Impression: Partial bowel obstruction Disposition: ADMITTED TO HOSPITAL Discharge Condition All VS Reviewed: Yes Condition: Stable Referrals: OTHER,PHYSICIAN (PCP) (Family) Scribe Attestation Portions of this note were transcribed by Colton Hodgson. I, Dr. Disla personally performed the history, physical exam and medical decision-making; I reviewed and confirmed the accuracy of the information in the transcribed note. Signed by Debra Ambrose, 11/07/16 - 1499 Philly Disla MD Nov 07, 2016 14:39 COLTON HODGSON Nov 07, 2016 14:48
[2016-11-07] MEDS ORDERED: HYDROmorphone 1 mg/mL Inj IVPUSH ONE (14:50)
[2016-11-07] MEDS: HYDROmorphone 1 mg/mL Inj IVPUSH PRN ×2 (15:31→22:31)
--- NOTE | 2016-11-07 16:12 | DRSVH ---
PROCEDURE: CT ABDOMEN AND PELVIS WITH CONTRAST ([id number]) INDICATIONS: severe abdominal pain TECHNIQUE: After the administration of intravenous contrast, 5 mm thick sections acquired from the diaphragm to the symphysis. 5 mm coronal and sagittal reformats were acquired. For radiation dose reduction, the following was used: automated exposure control, adjustment of mA and/or kV according to patient siz e. COMPARISON: [facility], CT, CT ABD PELVIS W CON, 10/30/2016, 22:52. [facility], CT, CT ABD PELVIS W CON, 10/03/2016, 22:50. [facility], CT, CT ABD PELVIS W CON, 09/22, 14:12. FINDINGS: Image quality: Excellent. ABDOMEN: Lung bases: Lung bases are clear. Heart size is normal. 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 Liver and right-sided spleen are normal in size. No change in low density within the left hepatic lobe inferiorly spanning roughly 30 mm. Gallbladder is within normal limits. Biliary system is non dilated. Pancreas is not well-seen. As before, a 35mm diamete r low density cystic focus involves the pancreatic head. No adrenal nodules. Kidneys demonstrate nor mal size and enhancement, without hydronephrosis. Peritoneum and bowel: Malrotation of the bowel is present, with left-sided large bowel and left-side d ligament of Treitz, as before. Status post Alina fundoplication. There is mild small bowel distent ion within the right hemiabdomen, new since the prior examination, which may indicate gastroenteritis versus mild/early small bowel obstruction. No free fluid or air. Appendix not seen. No evidence of a ppendicitis. Nodes and vessels: No retroperitoneal or mesenteric adenopathy by size criteria. Aorta and inferior vena cava are normal in size. 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 Ab normal relationship of the superior mesenteric artery and vein is present, as before. Miscellaneous: No ventral hernias. PELVIS: Genitourinary: Bladder wall thickness is normal. Miscellaneous: No inguinal hernias or adenopathy. Bones: No suspicious bony lesions. No vertebral body compression fractures. IMPRESSION: 1. New mild right hemiabdominal small bowel distention, which may indicate mild/early small bowel obs truction, or gastroenteritis. 2. No change in congenital heterotaxy syndrome with left isomerism, situs ambiguous, right-sided sple en, azygous continuation of the IVC, as well as bowel malrotation. 3. No change in indeterminate low density hepatic focus; recommend attention to this region on follow up imaging studies. 4. Appendix not seen; no evidence of appendicitis. 5. No change in low density focus involving the pancreatic head; recommend attention to this region o n followup imaging studies. Dictated by: Natty Briceno M.D. on 11/07/2016 at 16:01 Approved by: Natty Briceno M.D. on 11/07/2016 at 16:10
[2016-11-07 17:43] VITALS: BP 136/87; PULSE 114; RESP 20; O2SAT 95
--- NOTE | 2016-11-07 18:07 | PCM.HPMED ---
Subjective Date of Service Nov 07, 2016 Primary Provider: Admitting Physician: Primary Care Physician: Other,Physician Attending Physician: Chief Complaint: abdominal pain History of Present Illness: Pt is a 55 y/o female w/ a myriad of past medical problems including : Partial situs inversus, bowel malrotation, diverticulitis, IBS, hernia s/p repair, Alina fundoplication for a hiatal hernia surgical repair performed by Dr. Gatica 6 weeks ago presenting to the ED c/o intermittent abdominal pain onset 6 weeks ago, fibromyalgia, h/o pancreatitis She presented to the hospital complaining of worsening abdominal pain since her surgery 6 weeks ago. .Pain is like rubber band constricting her abdomen. Associated symptoms are : loss of appetite, diarrhea, nausea but no vomiting .She also reported a 15 lbs weigh loss since her surgery. She was seen by her surgeon and was told her pain is unlikely form the surgery. She was seen multiple time by her PCP/ urgent care for her abdominal pain In the ER today , she had a CT scan which shows : 1. New mild right yehuda abdominal small bowel distention, which may indicate mild/early small bowel obstruction, or gastroenteritis. 2. 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 3. No change in indeterminate low density hepatic focus; recommend attention to this region on followup imaging studies. 4. Appendix not seen; no evidence of appendicitis. 5. No change in low density focus involving the pancreatic head; recommend attention to this region on followup imaging studies. Review of Systems: Review of system is pertinent for abdominal pain, nausea, diarrhea, weight loss otherwise a comprehensive review x 12 points is negative Allergies Coded Allergies: droperidol (Verified Allergy, Unknown, 10/03/16) levothyroxine sodium (Verified Allergy, Unknown, Upset stomach, nausea, ) promethazine (Verified Adverse Reaction, Severe, Extrapyramidal Symptoms, 10/03/16) HAS TOLERATED RECENTLY - INGA IN EARLY 20s hydroxyzine (Verified Adverse Reaction, Intermediate, Agitation, 10/03/16) amoxicillin (Verified Adverse Reaction, Mild, STOMACH UPSET, 10/03/16) clavulanic acid (Verified Adverse Reaction, Mild, STOMACH UPSET, 10/03/16) nitrofurantoin (Verified Adverse Reaction, Unknown, Diarrhea, 10/03/16) Home Medications Scheduled Acetaminophen (Acetaminophen Liquid) 650 Mg/20 Ml Liquid 650 MG PO Q6H Cholecalciferol (Vitamin D3) (Vitamin D3) 2,000 Unit Tablet 2,000 UNIT PO DAILY Duloxetine (Cymbalta) 30 Mg Capsule.dr 30 MG PO DAILY Fluticasone Propionate (Flonase Allergy Relief) 50 Mcg/Actuation [place].susp 9.9 ML NS DAILY Hyoscyamine Liquid (Hyoscyamine Liquid) 0.125 Mg/1 Ml Drops 0.125 MG PO Q4H Ibuprofen (Children's Ibuprofen) 100 Mg/5 Ml Oral.susp 400 MG PO Q6H Omeprazole (Omeprazole) 20 Mg Capsule.dr 20 MG PO DAILY Omeprazole (Omeprazole) 20 Mg Tablet.dr 20 MG PO BID Sulfamethoxazole/Trimeth 800-160 mg (Bactrim DS) 1 Each Tablet 1 TABLET PO BID Thyroid,Pork ([place] Thyroid) 120 Mg Tablet 120 MG PO QAM Scheduled PRN Cyclobenzaprine (Cyclobenzaprine) 10 Mg Tablet 10 MG PO TID PRN PRN For Spasm Dicyclomine (Dicyclomine) 20 Mg Tablet 20 MG PO QID PRN PRN For GI Cramps Hydrocodone-Acetaminophen 5-325 mg (Hydrocodone-Acetaminophen 5-325 mg) 1 Each Tablet 1 TABLET PO Q6H PRN PRN For Pain Lorazepam (Lorazepam) 0.5 Mg Tablet 0.5 MG PO BID PRN PRN For Anxiety Metoclopramide (Metoclopramide) 5 Mg Tablet 5 MG PO QID PRN PRN For Nausea To be taken 3 times a day, as well as 1/2 hour before bedtime Ondansetron ODT (Ondansetron ODT) 4 Mg Tablet 4 MG PO Q8H PRN PRN For Nausea/ Vomiting Ondansetron ODT (Zofran ODT) 4 Mg Tablet 4 MG PO Q4H PRN PRN For Nausea Ondansetron ODT (Ondansetron ODT) 8 Mg Tab.rapdis 8 MG PO QID PRN PRN For Nausea Ondansetron ODT (Ondansetron ODT) 8 Mg Tab.rapdis 8 MG PO QID PRN PRN For Nausea oxyCODONE (oxyCODONE) 5 Mg/5 Ml Solution 5 MG PO Q4H PRN PRN For Severe Pain oxyCODONE (oxyCODONE) 5 Mg Capsule 1-2 MG PO Q4H PRN PRN For Pain Miscellaneous Medications Ascorbic Acid (Vitamin C) 1,500 Mg Tablet.er 1,000 MG PO PMH 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) ho Bowel malrotation Diverticulitis Irritable bowel syndrome Possible colitis Hypothyroidism Anxiety Depression Chronic sinusitis Fibromyalgia Arthritis GERD Pancreatitis Hiatal hernia s/p repair Migraines Surgical History Rectocele Sinus surgery Eye surgery Hernia Laproscopic Alina fundoplication Abdominoplasty Bladder suspension Reports: Appendectomy, , Hysterectomy, Tonsillectomy Family History Father type 1 DM Family History Father had type 1 DM Social History Hx Alcohol Use: No Hx Substance Use: No Hx Tobacco Use: Yes ("2 cigarettes a day") Smoking Status: Former Smoker Exam Vital Signs Vital Sign - Last Date Time Temp Pulse Resp B/P Pulse Ox O2 Delivery O2 Flow Rate FiO2 11/07/16 17:43 36.5 114 20 136/87 95 Room Air Exam General/Constitutional: Well-nourished female, in bed comfortably HEENT: Atraumatic, Normocephalic, PERRL, sclerae anicteric Mouth: Moist oropharyngeal mucosa, no oral thrush Neck: Supple, no JVD, full range of motion, trachea is midline Chest: Normal respiratory effort, no chest wall deformities Lungs: Breath sounds normal, Clear to auscultation, No respiratory distress Heart : S1, S2 Regular rate & rhythm no gallop, no murmur Abdomen: Atraumatic, Soft, No rebound, No distention, moderate tenderness in the palpation. No palpable mass Extremities: No cyanosis,, No swelling, No calf tenderness Skin: Warm, Dry, No cyanosis, no rash or ulcers Neurologic: Alert, Oriented, grossly intact Lab and Diagnostics Result Diagram: 11/07/16 1404 11/07/16 1404 X-Rays, CTs and MRIs Abdominal CT scan reviewed, report noted: 1. New mild right hemiabdominal small bowel distention, which may indicate mild/ early small bowel obstruction, or gastroenteritis. 2. 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 3. No change in indeterminate low density hepatic focus; recommend attention to this region on followup imaging studies. 4. Appendix not seen; no evidence of appendicitis. 5. No change in low density focus involving the pancreatic head; recommend attention to this region on followup imaging studies. Assessment & Plan 1. Abdominal pain 2. Small bowel obstruction 3. Elevated liver enzyme Chronic medical problems 1. Partial Situs Inversus 2. h/o Bowel malrotation 3. Diverticulitis 4. Irritable bowel syndrome 5. Hypothyroidism 6. Anxiety 7. Depression 8. Fibromyalgia 9. Arthritis 10. GERD 11. Pancreatitis 12. Hiatal hernia s/p repair 13. Migraines Plan : Nothing by mouth. No need for NG tube at this time. Start normal saline at 75 mL per hour for hydration. Zofran 4 mg IV every 4 hours when necessary follow nausea or vomiting Morphine sulfate 2 g IV every 4 hours as needed for pain. Surgery Dr. Gatica consulted by ER physician GI Dr. Couch . Home medication reviewed and reconciled SCD for DVT prophylaxis . Further management per clinical course and consultants Time spent 75 minutes Nura Adorno MD Nov 07, 2016 18:07
[2016-11-07] MEDS ORDERED: ASCO500C6 PO (18:21)
[2016-11-07] MEDS ORDERED: ASCO-294 PO ×2 (18:23)
--- NOTE | 2016-11-07 18:27 | NUR ---
Report from ER Received call and returned call to Jocelynn Frost RN, obtained report on new patient.
[2016-11-07] MEDS ORDERED: Ondansetron 2 mg/mL 2 mL Inj IVPUSH PRN ×2 (18:30→18:45)
[2016-11-07] MEDS ORDERED: GABA-502 PO (18:31)
[2016-11-07] MEDS: 0.9% Sodium Chloride 1,000 ML IV SCH ×2 (18:40→19:28)
--- NOTE | 2016-11-07 18:45 | NUR ---
Arrival to Floor Patient arrived to floor from ER in a wheelchair, was able to ambulate independently and steadily to bed and to standing scale. Patient oriented to room. Vitals signs taken, pain assessed and explained the need for stool sample. Patient comfortable at this time, will report to oncoming shift. Addendum: 11/07/16 at 1905 by JANIA MARQUEZ RN Unable to do a full assessment or begin admission prior to change of shift.
[2016-11-07 18:49] VITALS: BP 143/93; PULSE 101; RESP 16; O2SAT 99
[2016-11-07 23:17] VITALS: BP 139/86; PULSE 88; RESP 16; O2SAT 97
[2016-11-08] MEDS: Heparin 5,000 Unit/mL Inj SUBQ SCH ×3 (01:11→17:44)
[2016-11-08 03:44] VITALS: BP 139/90; PULSE 91; RESP 16; O2SAT 98
[2016-11-08] MEDS: 0.9% Sodium Chloride 1,000 ML IV SCH ×4 (04:40→14:40)
--- NOTE | 2016-11-08 05:31 | NUR ---
Abdominal Pain Pt complaining of abdominal pain 11/26-03/28. Pain not very well controlled with 2mg of morphine. Warm blankets used to ease cramping feeling.
[2016-11-08] MEDS: Pantoprazole 4 mg/mL 10 mL Inj IVPUSH SCH (07:30)
[2016-11-08 07:38] VITALS: BP 147/98; PULSE 89; RESP 16; O2SAT 95
[2016-11-08] MEDS: DULoxetine 30 mg DR Capsule PO SCH (07:51)
[2016-11-08 07:58] LABS: BASOPHILS % (AUTO) 0.4 % (0-3); EOSINOPHILS % (AUTO) 5.8 % (0-5); MONOCYTES % (AUTO) 11.1 % (4-12); Mean Corpuscular Hemoglobin 33.2 pg (27.0-35.0); Mean Corpuscular Volume 100.6 fL (81-100); NEUTROPHILS % (AUTO) 50.7 % (40-74); Platelet Count 271 bil/L (150-400)
--- NOTE | 2016-11-08 10:35 | NUR ---
Morning Rounds Staffed patient's with case management and social work, MD not present at this time. No plan for discharge at this time.
[2016-11-08 10:44] VITALS: BP 138/90; PULSE 87; RESP 15; O2SAT 98
[2016-11-08] MEDS: HYDROmorphone 0.5 mg/0.5 mL iSecure Syringe IVPUSH PRN ×3 (11:11→20:17)
--- NOTE | 2016-11-08 13:56 | NUR ---
Social Work note - Initial assessment Lanny Pena is a 55 yr old admitted for abdominal pain. EMR reviewed: Pt has [employer] insurance, her PCP is Dr Taylor. See attached CM initial assessment. DRUM HANDLER met with pt - pt known from previous admissions. Pt has had 20 ED visits in the past year - most related to pain, struggles with pancreatitis. Hx of ETOH dependence. Pt recently had abdominal surgery. She states that she is in pain, unable to eat, unable to have energy to care for herself. Pt lives at home in [place] with her significant other Froy. She states she plans to go home at d/c with his support. She has a GI MD at and plans to follow up with him, but states that she also is concerned that something went wrong with the surgery. Pt admits to dependence on pain meds and that her providers will not write for them. She is at a pain clinic, but states it is just for injections for her arthritis. Pt states she is not ready to stop using pain meds, does not see any dependency issues or addiction. Pt has hx of mental health - is connected with [facility] for depression and anxiety - she does not believe that her pain is intensified due to her mental health. DRUM HANDLER provided support, encouraged stress relieving techniques and offered resources - Pt denies any needs, just wants to rest and "Talking about this makes my pain worse.". DRUM HANDLER provided DPOA paperwork for pt - she states she will fill it out. Plan; Home with significant other, follow up with GI. ELLA Zapata Addendum: 11/08/16 at 1404 by LILIAN MARLOW SS Amended: Links added.
--- NOTE | 2016-11-08 14:20 | PCM.PNMED ---
Subjective Date of Service Nov 08, 2016 Subjective Patient states she has been having difficulty eating and her abdominal pain is present with or without food. Notes increased pain after her fundoplication procedure, GI to see patient today. We will plan for EGD tomorrow and nothing by mouth at midnight. Of note patient has a long history of opioid use with multiple visits to the ER this year. denies chest pain or shortness of breath Exam Vital Signs Vital Sign - Last Date Time Temp Pulse Resp B/P Pulse Ox O2 Delivery O2 Flow Rate FiO2 11/08/16 10:44 37.1 87 15 138/90 98 Room Air Intake and Output 11/07/16 11/07/16 11/08/16 Cumulative From/Thru 15:00 23:00 07:00 11/07/16 13:18 - 11/08/16 05:40 Intake Total 1000 ml 1000 ml 2802 ml 4802 ml Output Total 125 ml 700 ml 825 ml Balance 1000 ml 875 ml 2102 ml 3977 ml Intake Oral 1796 ml 1796 ml IV Total 1000 ml 1000 ml 1006 ml 3006 ml Output Urine Total 125 ml 700 ml 825 ml Exam General/Constitutional: Well-nourished female, nad HEENT: Atraumatic, Normocephalic, PERRL, sclerae anicteric Mouth: Moist oropharyngeal mucosa, no oral thrush Neck: Supple, no JVD, full range of motion, trachea is midline Chest: Normal respiratory effort, no chest wall deformities Lungs: Breath sounds normal, Clear to auscultation, No respiratory distress Heart : S1, S2 Regular rate & rhythm no gallop, no murmur Abdomen: Atraumatic, Soft, No rebound, No distention, moderate tenderness in the palpation. No palpable mass Extremities: No cyanosis,, No swelling, No calf tenderness Skin: Warm, Dry, No cyanosis, no rash or ulcers Neurologic: Alert, Oriented, grossly intact IVs and Medications Medications Reviewed: Medications were reviewed in detail Lab and Diagnostics Result Diagram: 11/08/1673411/08/16734 X-Rays, CTs and MRIs Abdominal CT scan reviewed, report noted: 1. New mild right hemiabdominal small bowel distention, which may indicate mild/ early small bowel obstruction, or gastroenteritis. 2. 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 3. No change in indeterminate low density hepatic focus; recommend attention to this region on followup imaging studies. 4. Appendix not seen; no evidence of appendicitis. 5. No change in low density focus involving the pancreatic head; recommend attention to this region on followup imaging studies. Assessment & Plan 1. Abdominal pain 2. Possible Small bowel obstruction versus pain secondary to Alina fundoplication given temporal relation to procedure 3. Elevated liver enzyme Chronic medical problems 1. Partial Situs Inversus 2. h/o Bowel malrotation 3. Diverticulitis 4. Irritable bowel syndrome 5. Hypothyroidism 6. Anxiety 7. Depression 8. Fibromyalgia 9. Arthritis 10. GERD 11. Pancreatitis 12. Hiatal hernia s/p repair 13. Migraines Plan : Nothing by mouth and plan for EGD with GI tomorrow. Continue IV fluid for hydration Zofran 4 mg IV every 4 hours when necessary follow nausea or vomiting Morphine sulfate 2 g IV every 4 hours --> switched on 11/08 to Dilaudid 0.5-1 mg every 4. As needed, with bowel regimen Surgery Dr. Gatica consulted by ER physician Patient likely will need to follow-up with [facility] GI and surgery GI Dr. Couch - appreciate recommendations Home medication reviewed and reconciled SCD for DVT prophylaxis . Further management per clinical course and consultants Pain Evaluation: Adequate Pain Control GI Prophylaxis: Proton Pump Inhibitor Resuscitation Status: CPR: Attempt Resuscitation Time spent 50 minutes spent with evaluation and management Attending Statement Patient likely to be discharged tomorrow after EGD evaluation with GI Nura Kelley DO Nov 08, 2016 14:20
--- NOTE | 2016-11-08 14:22 | NUR ---
Diet Contacted Dr. Kelley with the following cook page: Patient will need to be NPO at midnight for procedure, but is asking if she can have at a least a full liquid diet until that time. Please advise. Thank you. Aura GONZALEZ
[2016-11-08 14:24] VITALS: BP 139/87; PULSE 83; RESP 16; O2SAT 98
--- NOTE | 2016-11-08 16:11 | PCM.CHPMED ---
Subjective Date of Service: Nov 08, 2016 Provider requesting consult: Philly Disla MD Primary Physician: Admitting Physician: Nura Adorno MD Primary Care Physician: Other,Physician Attending Physician: Nura Adorno MD Chief Complaint: Chief Complaint: REASON FOR GI CONSULT: Persistent abdominal pain in a patient with history of Alina fundoplication secondary to hiatal hernia History of Present Illness: GASTROENTEROLOGY CONSULT NOTE Ms. Pena is a pleasant 55 year old woman with an unfortunate history of bowel malrotation, diverticulitis, partial sinus inversus, and gastric reflux secondary to a hiatal hernia s/p Alina fundoplication, that presented to [facility] with persistent abdominal pain, nausea, and inability to tolerate po intake with resultant unintentional weight loss. GI was asked to consult to assist in her care. Patient recently received laparoscopic repair of hiatal hernia with Alina fundoplication 09/17/2016. Patient states that her initial symptoms of reflux have subsided, but she has since developed persistent abdominal pain, described as a sharp, twisting, constricting sensation that is always present. She has been unable to tolerate any po intake, including liquids and solids. Reports best tolerance of apple juice. Due to her severe symptoms or nausea and pain, she has unintentionally lost > 10lbs over the recent 6 weeks secondary to poor po intake. She feels as if she is unable to vomit. States current tobacco use, with a reported two cigarettes daily, which is much decreased from her previous ; denies history of recent chronic or daily alcohol use, but does admit to a history of alcohol use that led to a bout of pancreatitis. EGD noted 06/2016 revealed a type 3 paraesophageal hernia; procedure was indicated for abnormal CT findings of malrotation and hiatal hernia. Biopsies revealed active inflammation and reactive epithelial changes, but was negative for dysplasia and malignancy. Colonoscopy 11/2014: Cecal polyp removed with cold bx forceps, scattered diverticula of left colon, tortuous colon, and small internal hemorrhoids; repeat recommended in 5 years from date of service. General surgery has also been consulted to assist in her care and management. Review of Systems: Complete ROS obtained; pertinent positives and negatives as noted in HPI PMH Past Medical History 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) h/o Bowel malrotation Hiatal hernia with GERD Diverticulitis Irritable bowel syndrome Possible colitis Hypothyroidism Anxiety Depression Chronic sinusitis Fibromyalgia Arthritis GERD Pancreatitis Hiatal hernia s/p repair Migraines Colonic polyps Sol Endometriosis OA Surgical History Rectocele Sinus surgery Eye surgery Hernia Laparoscopic Alina fundoplication Abdominoplasty Bladder suspension Reports: Appendectomy, , Hysterectomy, Tonsillectomy Home Medications From admission note: Acetaminophen (Acetaminophen Liquid) 650 Mg/20 Ml Liquid 650 MG PO Q6H Cholecalciferol (Vitamin D3) (Vitamin D3) 2,000 Unit Tablet 2,000 UNIT PO DAILY Duloxetine (Cymbalta) 30 Mg Capsule.dr 30 MG PO DAILY Fluticasone Propionate (Flonase Allergy Relief) 50 Mcg/Actuation [place].susp 9.9 ML NS DAILY Hyoscyamine Liquid (Hyoscyamine Liquid) 0.125 Mg/1 Ml Drops 0.125 MG PO Q4H Ibuprofen (Children's Ibuprofen) 100 Mg/5 Ml Oral.susp 400 MG PO Q6H Omeprazole (Omeprazole) 20 Mg Capsule.dr 20 MG PO DAILY Omeprazole (Omeprazole) 20 Mg Tablet.dr 20 MG PO BID Sulfamethoxazole/Trimeth 800-160 mg (Bactrim DS) 1 Each Tablet 1 TABLET PO BID Thyroid,Pork ([place] Thyroid) 120 Mg Tablet 120 MG PO QAM Scheduled PRN Cyclobenzaprine (Cyclobenzaprine) 10 Mg Tablet 10 MG PO TID PRN PRN For Spasm Dicyclomine (Dicyclomine) 20 Mg Tablet 20 MG PO QID PRN PRN For GI Cramps Hydrocodone-Acetaminophen 5-325 mg (Hydrocodone-Acetaminophen 5-325 mg) 1 Each Tablet 1 TABLET PO Q6H PRN PRN For Pain Lorazepam (Lorazepam) 0.5 Mg Tablet 0.5 MG PO BID PRN PRN For Anxiety Metoclopramide (Metoclopramide) 5 Mg Tablet 5 MG PO QID PRN PRN For Nausea To be taken 3 times a day, as well as 1/2 hour before bedtime Ondansetron ODT (Ondansetron ODT) 4 Mg Tablet 4 MG PO Q8H PRN PRN For Nausea/ Vomiting Ondansetron ODT (Zofran ODT) 4 Mg Tablet 4 MG PO Q4H PRN PRN For Nausea Ondansetron ODT (Ondansetron ODT) 8 Mg Tab.rapdis 8 MG PO QID PRN PRN For Nausea Ondansetron ODT (Ondansetron ODT) 8 Mg Tab.rapdis 8 MG PO QID PRN PRN For Nausea oxyCODONE (oxyCODONE) 5 Mg/5 Ml Solution 5 MG PO Q4H PRN PRN For Severe Pain oxyCODONE (oxyCODONE) 5 Mg Capsule 1-2 MG PO Q4H PRN PRN For Pain Miscellaneous Medications Ascorbic Acid (Vitamin C) 1,500 Mg Tablet.er 1,000 MG PO Many medications duplicated likely secondary to multiple ED visits and recent surgery. Will need to be updated at reconciliation and at time of DC Allergies: Coded Allergies: droperidol (Verified Allergy, Unknown, 10/03/16) levothyroxine sodium (Verified Allergy, Unknown, Upset stomach, nausea, ) promethazine (Verified Adverse Reaction, Severe, Extrapyramidal Symptoms, 10/03/16) HAS TOLERATED RECENTLY - INGA IN EARLY 20s hydroxyzine (Verified Adverse Reaction, Intermediate, Agitation, 10/03/16) amoxicillin (Verified Adverse Reaction, Mild, STOMACH UPSET, 10/03/16) clavulanic acid (Verified Adverse Reaction, Mild, STOMACH UPSET, 10/03/16) nitrofurantoin (Verified Adverse Reaction, Unknown, Diarrhea, 10/03/16) Family History Family History Denies any history of bowel disorders, such as IBD/Crohn's/UC, Celiac, colon cancer; she states that she is the only one known to have GI difficulties and abdominal pain with suspected IBS and reflux Social History Hx Alcohol Use: NoHx Substance Use: NoHx Tobacco Use: Yes ("2 cigarettes a day") Smoking Status: Former Smoker Living Arrangement: with Family Exam Vital Signs Vital Sign - Last Date Time Temp Pulse Resp B/P Pulse Ox O2 Delivery O2 Flow Rate FiO2 11/08/16 14:24 37.0 83 16 139/87 98 Room Air Intake and Output 11/07/16 11/07/16 11/08/16 Cumulative From/Thru 15:00 23:00 07:00 11/07/16 13:18 - 11/08/16 05:40 Intake Total 1000 ml 1000 ml 2802 ml 4802 ml Output Total 125 ml 700 ml 825 ml Balance 1000 ml 875 ml 2102 ml 3977 ml Intake Oral 1796 ml 1796 ml IV Total 1000 ml 1000 ml 1006 ml 3006 ml Output Urine Total 125 ml 700 ml 825 ml General: Alert, Oriented X3, Cooperative, Mild Distress (mildly anxious) Eyes: Scleral Anicteric Nose: Mucous Membr Moist/[place] Mouth: Mucous Membr Moist/[place] Chest & Lungs: Auscultation (clear bilaterally; adequate air flow all spears) Cardiovascular: Regular Rate/Rhythm, No Murmurs/Rubs/Gallops Pulses: Radial (equal and bilateral) Abdomen: Tender (diffusely; notably epigastric), Non-distended Musculoskeletal: Normal Range of Motion (able to mobilize without assistance) Extremities: No cyanosis/clubbing/edma bilat Neurological: Grossly Neurologically Intact, Normal Speech (without slur) Lab and Diagnostics Result Diagram: 11/08/16 0735 11/08/16 0735 Assessment & Plan Assessment GASTROENTEROLOGY CONSULT NOTE Ms. Pena is a pleasant 55 year old woman with an unfortunate history of bowel malrotation, diverticulitis, partial sinus inversus, and gastric reflux secondary to a hiatal hernia s/p Alina fundoplication, that presented to [facility] with persistent abdominal pain, nausea, and inability to tolerate po intake with resultant unintentional weight loss. GI was asked to consult to assist in her care. Assessments - Abdominal pain with associated nausea and unintentional weight loss in patient with hiatal hernia s/p Alina and history of malrotation and partial sinus inversus Plan - EGD 11/09 at [facility] 0800 - Evaluate for ulcerations and potential etiologies for pain and nausea - NPO midnight - Continue PPI - Consider Bentyl 20mg QID as starting dose for symptom relief - Follow up at GI after DC Thank you for this consult, we will follow along at this time. Total time: 60 minutes Problems: Pain Evaluation: Adequate Pain Control GI Prophylaxis: Proton Pump Inhibitor Resuscitation Status: CPR: Attempt Resuscitation Jody Lafleur DO Nov 08, 2016 16:11
[2016-11-08 17:49] VITALS: BP 139/86; PULSE 89; RESP 16; O2SAT 97
--- NOTE | 2016-11-08 17:54 | NUR ---
Increased Cramping Contacted Dr. Kelley with the following cook page: Patient is reporting increased cramping, too early to give pain medications at this time, could Bentyl or another Rx be considered. Please advise. Thank you. Aura GONZALEZ
--- NOTE | 2016-11-08 21:26 | CONS ---
[address] [address] CONSULTATION REPORT PATIENT: AMANDO CLEMENS : 1960 MR#: [id number] ADMIT: 11/07/2016 JOB ID: [id number] DATE OF SERVICE: 11/07/2016 CHIEF COMPLAINT: A 55-year-old lady with abdominal pain seen in consultation at the request of Philly Paul MD. HISTORY OF PRESENT ILLNESS: Patient is a 55-year-old lady who presented to Dr. Jha on June 13, 2016, for back pain. Because of the radiation of the pain to the front of the abdomen and her known findings of anatomical abnormalities inside the abdomen, he obtained a CT scan and sent her to me for surgical consultation. She has known that she has malrotation since her hysterectomy in the distant past. She has always had problems with abdominal pain, alternating constipation and diarrhea. She had been given the diagnosis of irritable bowel syndrome. She has also had longstanding reflux and heartburn. She has been taking omeprazole for two years with only partial relief of symptoms with continued periodic episodes of emesis. I met her on June 19, 2016, and requested investigations to work up her GERD and malrotation. She had trouble with chronic pain, and when I first met her, she was in between providers looking for a new one to take care of her pain. She has since established primary care relationship with [facility] in [facility]. She had an episode of likely alcohol induced pancreatitis complicated by a pseudocyst seen in its largest dimension on July 31, 2016. Her abdominal improved subjectively, and after getting a CT confirmation that the pseudocyst was also improving with the understanding that the operation is going to only help her reflux and not any abdominal pain, I performed a laparoscopic hiatal hernia repair with Alina fundoplication on September 17, 2016. She did fine and went home the next day, but continued to have issues with pain prompting her to the emergency room multiple times. OTHER MEDICAL PROBLEMS: 1. Colon polyps. 2. Sol thyroiditis. 3. Fibromyalgia. 4. Migraine headaches. 5. Endometriosis. 6. Osteoarthritis. 7. Partial situs inversus. PRIOR OPERATIONS: 1. section. 2. Hysterectomy, appendectomy. 3. Bladder suspension and rectocele repair. 4. Abdominoplasty. 5. Tonsillectomy. 6. Laparoscopic hiatal hernia repair with Alina fundoplication, September 17, 2016. HOME MEDICATIONS: Vitamin C, vitamin D3, cyclobenzaprine, dicyclomine, duloxetine, gabapentin, omeprazole, ondansetron, [place] Thyroid. ALLERGIES: 1. AUGMENTIN. 2. DROPERIDOL. 3. HYDROXYZINE. 4. NITROFURANTOIN. 5. PROMETHAZINE. FAMILY HISTORY: Father had diabetes, hypertension, and thyroid disease. Mother had breast cancer and thyroid disease. SOCIAL HISTORY: She has been smoking. When I met her, I tried to get her to quit smoking. I also discussed the importance of alcohol cessation given her episode of pancreatitis. INVESTIGATIONS: Labs from November 07, 2016: WBC 9.1, hemoglobin 14.2, platelet count 338. Creatinine 0.41, glucose 138, AST 65, ALT 34. CT of abdomen and pelvis, November 07, 2016: Pancreatic pseudocyst significantly smaller than before, but relatively stable over the last few visits. I do not see any evidence of bowel obstruction or other surgical complication. PHYSICAL EXAM: GENERAL: A 55-year-old lady in no acute distress. VITAL SIGNS: BMI 19.1. Temperature 36.7, pulse 101, blood pressure 143/93, saturating 99% on room air. RESPIRATORY: Normal effort, clear to auscultation. CARDIOVASCULAR: Regular rate and rhythm. ABDOMEN: Soft. Incisions healing well. ASSESSMENT AND PLAN: A 55-year-old lady with chronic abdominal pain of unclear etiology. She has had problems with chronic pain for a long time. She could have an organic abdominal problem, but the small bowel follow through I did before the operation did not show any evidence of blockage. It is always worth repeating the small bowel follow through if there is concern for continued partial bowel obstruction. She might also benefit from a gastric emptying study if delayed gastric emptying is being considered as a part of her medical issue, but I think this diagnostic workup is best headed by Gastroenterology to figure out if there is an organic explanation for her symptoms. I would strongly discourage using opioids because we do not have a clear explanation for her symptoms and I believe opioid management in her case is best driven through an established pain center, especially given her previous history of drug problems, including being sent away from [facility]. JAG
[2016-11-08 22:27] VITALS: BP 131/85; PULSE 98; RESP 16; O2SAT 99
[2016-11-09] VITALS (9 sets, daily range): BP systolic 127–157; BP diastolic 85–104; PULSE 74–96; RESP 14–18; O2SAT 95–99
[2016-11-09] MEDS: 0.9% Sodium Chloride 1,000 ML IV SCH ×2 (00:32→16:24)
[2016-11-09] MEDS: Heparin 5,000 Unit/mL Inj SUBQ SCH ×3 (00:33→15:27)
[2016-11-09] MEDS: HYDROmorphone 0.5 mg/0.5 mL iSecure Syringe IVPUSH PRN ×5 (01:08→20:37)
--- NOTE | 2016-11-09 06:33 | NUR ---
Activity Pt NPO at midnight for morning EGD. Pain 7-8/10 throughout night with good relief of pain medications and warm blankets to reduce cramping.
--- NOTE | 2016-11-09 07:53 | PCM.HPANE ---
Patient Data Date of Service: Nov 09, 2016 Surgeon Admitting Provider:Nura Adorno MD Attending Provider:Nura Adorno MD Primary Care Physician:Other,Physician Other Provider: Reason for Visit Abdominal Pain, Partial Small Bowel Obstruction Ht/WT & BMI Height (Feet): 5 Height (Inches): 9.00 Weight (Kilograms): 58.600 Body Mass Index 19.00 Allergies Coded Allergies: droperidol (Verified Allergy, Unknown, 10/03/16) levothyroxine sodium (Verified Allergy, Unknown, Upset stomach, nausea, ) promethazine (Verified Adverse Reaction, Severe, Extrapyramidal Symptoms, 10/03/16) HAS TOLERATED RECENTLY - INGA IN EARLY 20s hydroxyzine (Verified Adverse Reaction, Intermediate, Agitation, 10/03/16) amoxicillin (Verified Adverse Reaction, Mild, STOMACH UPSET, 10/03/16) clavulanic acid (Verified Adverse Reaction, Mild, STOMACH UPSET, 10/03/16) nitrofurantoin (Verified Adverse Reaction, Unknown, Diarrhea, 10/03/16) Past Anesthesia History Anesthesia History: Denies:: Abnormal Airway, Anesthesia Reactions, Difficult Intubation, Fam Anesthesia Reaction, Fam Malignant Hypertherm, Malignant Hyperthermia Diabetes History Hx Diabetes?: No MRSA MRSA: No Medications Active Scripts Dicyclomine 20 Mg Isszlh63 Mg PO QID PRN For GI Cramps #30 TABLET Ref 0 Prov:Seth Juárez MD 10/04/16 Ondansetron ODT 4 Mg Tablet4 Mg PO Q8H PRN For Nausea/Vomiting 7 Days Prov:Elizabeth Gregg DO 09/08/15 Reported Medications Gabapentin 300 Mg Otblgeg688 Mg PO HS Ref 0 11/07/16 Ascorbate Calcium (Vitamin C)500 Mg Tablet1,500 Mg PO DAILY 11/07/16 Duloxetine (Cymbalta)30 Mg Capsule.dr90 Mg PO DAILY Ref 0 09/12/16 Omeprazole 20 Mg Capsule.dr40 Mg PO DAILY Ref 0 07/05/16 Cholecalciferol (Vitamin D3) (Vitamin D3)2,000 Unit Tablet4,000 Unit PO DAILY 06/22/16 Thyroid,Pork ([place] Thyroid)120 Mg Tdixnh505 Mg PO QAM 06/22/16 Cyclobenzaprine 10 Mg Polrzw00 Mg PO TID PRN For Spasm 06/22/16 Discontinued Reported Medications Ascorbate Calcium (Vitamin C)500 Mg Uqtjur927 Mg PO 11/07/16 Ascorbic Acid (Vitamin C)500 Mg Capsule.er500 Mg PO 11/07/16 Sulfamethoxazole/Trimeth 800-160 mg (Bactrim DS)1 Each Tablet1 Tablet PO BID uti 3 Days Ref 0 09/24/16 Ascorbic Acid (Vitamin C)1,500 Mg Tablet.er1,000 Mg PO 07/04/16 Fluticasone Propionate (Flonase Allergy Relief)50 Mcg/Actuation [place].susp9.9 Ml NS DAILY 07/04/16 Discontinued Scripts Hydrocodone-Acetaminophen 5-325 mg 1 Each Tablet1 Tablet PO Q6H PRN For Pain # 14 TABLET Ref 0 Prov:Geneva Jerome MD 10/31/16 Hyoscyamine Liquid 0.125 Mg/1 Ml Drops0.125 Mg PO Q4H #30 ML Prov:Gneeva Jerome MD 10/31/16 Metoclopramide 5 Mg Tablet5 Mg PO QID PRN For Nausea #30 TABLET Ref 0 To be taken 3 times a day, as well as 1/2 hour before bedtime Prov:Jovon Donnelly PA-C 10/20/16 Omeprazole 20 Mg Tablet.dr20 Mg PO BID #60 TABLET Prov:Seth Juárez MD 10/12/16 Ondansetron ODT 8 Mg Tab.rapdis8 Mg PO QID PRN For Nausea #20 TABLET Prov:Seth Juárez MD 10/12/16 Ondansetron ODT 8 Mg Tab.rapdis8 Mg PO QID PRN For Nausea #30 TABLET Prov:Seth Juárez MD 10/04/16 Ondansetron ODT (Zofran ODT)4 Mg Tablet4 Mg PO Q4H PRN For Nausea #14 TABLET Prov:Chris Drew DO 09/22/16 oxyCODONE 5 Mg Capsule1-2 Mg PO Q4H PRN For Pain #20 CAPSULE Ref 0 Prov:Chris Drew DO 09/22/16 Acetaminophen (Acetaminophen Liquid)650 Mg/20 Ml Xoegwr460 Mg PO Q6H #30 DOSE Ref 3 Prov:Lena Gatica MD 09/18/16 oxyCODONE 5 Mg/5 Ml Solution5 Mg PO Q4H PRN For Severe Pain #30 DOSE Ref 0 Prov:Lena Gatica MD 09/18/16 Ibuprofen (Children's Ibuprofen)100 Mg/5 Ml Oral.orsa185 Mg PO Q6H #30 DOSE Ref 3 Prov:Lena Gatica MD 09/18/16 Lorazepam 0.5 Mg Tablet0.5 Mg PO BID PRN For Anxiety #14 TABLET Ref 0 Prov:Philly Disla MD 09/08/16 History History of ENT Problems?: Yes HEENT History: Positive for:: Sinus Problem (sinus surgery) Denies:: Abnormal Airway Cataracts Difficult Intubation Dysphagia Hearing Problem TMJ Hx of Heart Problems?: No Cardiovascular History: Denies:: AICD Atrial Fibrillation Cardiac Surgery Chest Pain Congestive Heart Failure Edema Heart Murmur Hypertension Irregular Heartbeat Pacemaker Thrombophlebitis Valvular Heart Disease Hx of Respiratory Problem?: Yes Respiratory History: Positive for:: Pneumonia (remote hx of ) Denies:: Asthma COPD Chest Surgery Cough Dyspnea Emphysema Hemoptysis Oxygen Administration Tuberculosis Use of C-PAP Machine Hx Neurologic Problems?: Yes Neurological History: Positive for:: Headaches (frequently) Denies:: Alzheimer's Disease CVA Dementia Dizziness Multiple Sclerosis Parkinson's Disease Seizures Hx of GI Problems?: Yes Gastrointestinal History: Positive for:: Diverticulitis Gastroesphageal Reflux (takes prilosec) Heartburn Hiatal Hernia (Alina sugery 6 weeks ago) Denies:: Cirrhosis Gastrointestinal Bleeding Hepatitis Rectal Bleeding Hx of Problems?: Yes Genitourinary History: Positive for:: Urinary Tract Infection Denies:: HX of Hemodialysis Kidney Stones HX of Peritoneal Dialysis: No Female Hx: Positive for:: Endometriosis Denies:: Currently (hysterectomy) Pelvic Inflammatory Problems with Breasts? Skin History: Denies:: History Skin Disorders? Pressure Ulcers Hx Musculoskeletal Problems?: Yes Musculoskeletal History: Positive for:: Back Injury (chronic pain ) Denies:: Joint Replacement Musculoskeletal Trauma Systemic Lupus Hx of Psycho/Social Problems?: Yes Psycho Social History: Positive for:: Anxiety Hx Depression Denies:: Bipolar Disorder Suicide Attempt Hx Surgeries?: Yes (hiatal hernia repair, hysterectomy, bladder suspension) Hx Any Other Health Problems?: Yes Other History: Positive for:: Hospitalization (migraine, surgeries) Thyroid Disease (hypothyroid) Denies:: Cancer Endocrine Disease History Blood Transfusions: Positive for:: Accept Blood Products? Denies:: Blood Transfuse Reaction Blood Transfusions Hx Diabetes: No Hx Alcohol Use: NoHx Substance Use: No Smoking Status: Former Smoker Have You Smoked inLast 12 mo: Yes (Had a couple of half cigarettes over past couple of days) Stop/Bang Treated for Sleep Apnea?: No Do You Have a CPAP Machine?: No S-Snoring: Do You Snore Loudly: No T-Tired: feel tired, fatigued: No O-Obsered: Observed not breath: No P-Blood Pressure: treated: No B- Body Mass Index > 35 kg/m2: No A- Age over 50: Yes N- Neck Large Circumference: No G- Gender Male: No JINNY Total Score: 1 JINNY Risk Assessment: Low Risk, <3 Yes Risk Assessment Category Category 1A: Patient has history of documented sleep apnea, and HAS NOT received any narcotic, sedative or anesthesia administration during this stay. Category 1B: Patient has history of documented sleep apnea, and HAS received any narcotic , sedative or anesthesia administration during this stay Category 2: Patient has SUSPECTED Obstructive Sleep Apnea, and HAS received any narcotic , sedative or anesthesia administration during this stay. Category 3: Patient has SUSPECTED Obstructive Sleep Apnea and HAS NOT received narcotic, sedative or anesthesia administration during this stay. Category 4: Outpatient in Procedural Areas with known sleep apnea or who screen positive for High Risk via the STOP/BANG questionnaire. Exam Exam Vital Signs Vital Signs Date Time Temp Pulse Resp B/P Pulse Ox O2 Delivery O2 Flow Rate FiO2 11/09/16 07:45 36.7 92 14 138/104 98 Room Air 11/09/16 06:00 36.8 86 14 135/90 97 Room Air 11/09/16 02:03 37.0 96 16 138/86 99 Room Air General Appearance: Alert, Oriented X3, Cooperative HEENT/AIRWAY: MP 2, Neck Movement (Full), Mouth Opening (Wide) Lungs: Clear to Auscultation, Normal Air Movement Heart: Regular Rate/Rhythm, Normal S1, Normal S2 Meds/Labs/Diagnostics Admission Meds Current Medications Duloxetine HCl (Cymbalta) 90 mg DAILY PO Last administered on 11/08/16 07:51; Start 11/08/16 at 08:30 Morphine Sulfate (Morphine 2 mg/ mL Syringe) 1-2 MG ONCE ONCE IVPUSH Last administered on 11/08/16 18:53; Start 11/08/16 at 18:45; Stop 11/08/16 at 18:46 ; Status DC Labs Test 11/07/16 14:04 11/07/16 14:10 11/08/16 07:35 Magnesium Level 1.7mg/dL (1.6-2.6) Lipase 5U/L (13-60) Hold Singh Top Tube Received (Received) Hold Urine Received (Received) White Blood Count 5.5th/mm3 (3.8-10.1) Red Blood Count 3.46mil/mm3 (3.90-5.20) Hemoglobin 11.5g/dL (12.0-15.6) Hematocrit 34.8% (35.0-46.0) Mean Corpuscular Volume 100.6fL (81-100) Mean Corpuscular Hemoglobin 33.2pg (27.0-35.0) Mean Corpuscular Hemoglobin Concent 33.0% (32.0-37.0) Red Cell Distribution Width 14.3% (12.3-15.4) Platelet Count 271bil/L (150-400) Neutrophils (%) (Auto) 50.7% (40-74) Lymphocytes (%) (Auto) 31.8% (14-46) Monocytes (%) (Auto) 11.1% (4-12) Eosinophils (%) (Auto) 5.8% (0-5) Basophils (%) (Auto) 0.4% (0-3) Sodium Level 137mEq/L (134-144) Potassium Level 4.5mEq/L (3.5-5.2) Chloride Level 104mEq/L (97-108) Carbon Dioxide Level 20mmol/L (18-29) Blood Urea Nitrogen 3mg/dL (6-24) Creatinine 0.29mg/dL (0.57-1.00) Estimat Glomerular Filtration Rate 347mL/min (>59) Glucose Level 106mg/dL (60-99) Calcium Level 8.1mg/dL (8.5-10.1) Total Bilirubin 0.4mg/dL (0.0-1.2) Aspartate Amino Transf (AST/SGOT) 39U/L (0-50) Alanine Aminotransferase (ALT/SGPT) 22U/L (0-32) Alkaline Phosphatase 99U/L (25-150) Total Protein 5.4g/dL (6.4-8.4) Albumin 3.2g/dL (3.4-5.0) Plan Impression Patient chart reviewed, patient interviewed and anesthestic plan with risks, benefits, and alternatives discussed, and informed consent obtained. NPO Status: > 8 hours ASA Physical Status: ASA2 Mod Systemic Disease Anesthetic Plan: MAC Bene/Risks/Altern/Consents: Yes HP Complete Prior to Induction: Yes Jabari Hester MD Nov 09, 2016 07:48
[2016-11-09] MEDS ORDERED: Ondansetron 2 mg/mL 2 mL Inj IVPUSH PRN (07:55)
[2016-11-09] MEDS ORDERED: MetoCLOpramide 5 mg/mL 2 mL Inj IVPUSH PRN (07:55)
[2016-11-09] MEDS ORDERED: Ketorolac 15 mg/mL Inj IVPUSH PRN (08:00)
[2016-11-09] MEDS: Lactated Ringer's 1,000 ML IV SCH ×3 (08:02→09:10)
--- NOTE | 2016-11-09 08:18 | PCM.ANEP1 ---
Post Anesthesia Phase 1 PACU Phase 1 Assessment Date of Service: Nov 09, 2016 Vital Signs Vital Signs Date Time Temp Pulse Resp B/P Pulse Ox O2 Delivery O2 Flow Rate FiO2 11/09/16 08:11 36.7 85 14 136/89 95 Room Air 11/09/16 07:45 36.7 92 14 138/104 98 Room Air 11/09/16 06:00 36.8 86 14 135/90 97 Room Air 11/09/16 02:03 37.0 96 16 138/86 99 Room Air Anesthetic Administered: MAC Level of Alertness: Sleepy, easy to arouse GA's with Equal Strength: Yes Pain: No (sleeping) Nausea or Vomiting: No Oxygen Delivery: Room Air Lungs: Normal Air Movement Jabari Hester MD Nov 09, 2016 08:18
[2016-11-09] MEDS ORDERED: Propofol 10,000 mCg/mL 20 mL Inj ONE (09:00)
[2016-11-09] MEDS ORDERED: Lidocaine PF 1% 30 mL Inj ONE (09:00)
--- NOTE | 2016-11-09 09:05 | PCM.ANEP2 ---
Post Anesthesia Evaluation ASA/CMS Post Anesthesia Date of Service: Nov 09, 2016 VS in Patient's Normal Range?: Yes Resp Stable; Airway Patent?: Yes CV Function & Hydration Stable: Yes Mental Status Recovered?: Yes Pain control Satisfactory?: Yes N/V Control Satisfactory?: Yes Jabari Hester MD Nov 09, 2016 09:05
[2016-11-09] MEDS: DULoxetine 30 mg DR Capsule PO SCH (09:14)
[2016-11-09] MEDS: Pantoprazole 4 mg/mL 10 mL Inj IVPUSH SCH (09:28)
--- NOTE | 2016-11-09 14:35 | PCM.PNMED ---
Subjective Date of Service Nov 09, 2016 Subjective Patient to EGD procedure this morning with GI. Patient utilizing pain meds at the evening and we will plan to wean pain medication today to Toradol and less frequent opioid use. Exam Vital Signs Vital Sign - Last Date Time Temp Pulse Resp B/P Pulse Ox O2 Delivery O2 Flow Rate FiO2 11/09/16 10:12 36.5 74 16 148/91 95 Room Air Intake and Output 11/08/16 11/08/16 11/09/16 Cumulative From/Thru 14:59 22:59 06:59 11/07/16 13:18 - 11/09/16 06:07 Intake Total 2173 ml 1713 ml 8688 ml Output Total 1500 ml 2000 ml 4325 ml Balance 673 ml -287 ml 4363 ml Intake Oral 960 ml 525 ml 3281 ml IV Total 1213 ml 1188 ml 5407 ml Output Urine Total 1500 ml 2000 ml 4325 ml Exam Gen:Well-nourished female, nad HEENT: Atraumatic, Normocephalic, PERRL, sclerae anicteric Mouth: Moist oropharyngeal mucosa, no oral thrush Neck: Supple, no JVD, full range of motion, trachea is midline Chest: Normal respiratory effort, no chest wall deformities Lungs: Breath sounds normal, Clear to auscultation, No respiratory distress Heart : S1, S2 Regular rate & rhythm no gallop, no murmur Abdomen: Atraumatic, Soft, No rebound, No distention, moderate tenderness in the palpation. No palpable mass Extremities: No cyanosis,, No swelling, No calf tenderness Skin: Warm, Dry, No cyanosis, no rash or ulcers Neurologic: Alert, Oriented, grossly intact IVs and Medications Medications Reviewed: Medications were reviewed in detail Lab and Diagnostics Result Diagram: 11/08/1635 11/08/1635 X-Rays, CTs and MRIs Abdominal CT scan reviewed, report noted: 1. New mild right hemiabdominal small bowel distention, which may indicate mild/ early small bowel obstruction, or gastroenteritis. 2. 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 3. No change in indeterminate low density hepatic focus; recommend attention to this region on followup imaging studies. 4. Appendix not seen; no evidence of appendicitis. 5. No change in low density focus involving the pancreatic head; recommend attention to this region on followup imaging studies. Assessment & Plan 1. Abdominal pain 2. Possible Small bowel obstruction versus pain secondary to Alina fundoplication given temporal relation to procedure 3. Elevated liver enzyme Chronic medical problems 1. Partial Situs Inversus 2. h/o Bowel malrotation 3. Diverticulitis 4. Irritable bowel syndrome 5. Hypothyroidism 6. Anxiety 7. Depression 8. Fibromyalgia 9. Arthritis 10. GERD 11. Pancreatitis 12. Hiatal hernia s/p repair 13. Migraines Plan : Status post EGD awaiting report Continue IV fluid for hydration Zofran 4 mg IV every 4 hours when necessary follow nausea or vomiting Morphine sulfate 2 g IV every 4 hours --> decreased frequency of Dilaudid 0.5-1 mg every 6 and added Toradol. As needed, with bowel regimen Surgery Dr. Gatica consulted by ER physician Patient will likely need follow-up with [facility] GI and surgery GI Dr. Couch - appreciate recommendations Home medication reviewed and reconciled SCD for DVT prophylaxis . Further management per clinical course and consultants Pain Evaluation: Other (active pain titration with optimization of non-opioid occasions first) GI Prophylaxis: Proton Pump Inhibitor Resuscitation Status: CPR: Attempt Resuscitation Time spent 40 minutes spent with evaluation and management Attending Statement Disposition: Likely discharge tomorrow given prolonged EGD procedure today Nura Kelley DO Nov 09, 2016 14:35
--- NOTE | 2016-11-09 15:09 | ENDO ---
[address] [address] ENDOSCOPY PROCEDURE PATIENT: AMANDO CLEMENS : 1960 MR#: [id number] ADMIT: 11/07/2016 JOB ID: [id number] TYPE OF OPERATION: Esophagogastroduodenoscopy with biopsy. PREOPERATIVE DIAGNOSIS(ES): Abdominal pain. POSTOPERATIVE DIAGNOSIS(ES): Status post Alina fundoplication. ANESTHESIA: Monitored anesthesia care. COMPLICATIONS: None. BLOOD LOSS: Minimal. DESCRIPTION OF PROCEDURE: After risks and benefits explained to patient, informed consent was obtained. After anesthesia administered, the upper endoscope was inserted in the mouth, intubating the esophagus, stomach, second portion of duodenum. Mucosa carefully examined. After procedure was done, the scope withdrawn, procedure terminated. FINDINGS: Upon inspection of the esophagus, the esophagus was normal without masses, ulcers, or lesions. Z-line located 40 cm from incisors. Upon entering the stomach, the stomach also appeared normal without masses, ulcers, or lesions. Retroflexion showed a Alina fundoplication that was performed. Duodenal bulb, first and second portion normal. Biopsy taken of antrum, body of the stomach. IMPRESSIONS: Status post Alina fundoplication. RECOMMENDATION: Await pathology results. Patient has followup at [facility] which she should follow up there.
--- NOTE | 2016-11-09 16:36 | NUR ---
Pain Pt reports abdominal pain up to "8/10" during this shift. Describes it as lower abdominal cramping. She is receiving PRN dilaudid q6 hours and had IV toradol x1 today. She reports that the toradol is not effective and that the IV dilaudid is only effective for "a hour or two". Also reporting a headache "8/10" and was given tylenol x1. Encouraged pt to use other modalities for pain relief. Continuing on IV fluids. Continue on clear liquid diet.
[2016-11-10] MEDS: Ondansetron 2 mg/mL 2 mL Inj IVPUSH PRN ×3 (00:08→09:16)
[2016-11-10] MEDS: Heparin 5,000 Unit/mL Inj SUBQ SCH ×4 (00:08→23:35)
[2016-11-10] MEDS: HYDROmorphone 0.5 mg/0.5 mL iSecure Syringe IVPUSH PRN ×6 (00:59→22:02)
[2016-11-10] MEDS: 0.9% Sodium Chloride 1,000 ML IV SCH ×3 (01:16→20:25)
[2016-11-10] MEDS: Alum-Mag Hydrox-Simeth 30 mL Suspension PO PRN (03:01)
--- NOTE | 2016-11-10 05:07 | NUR ---
Pain/Nausea Pt reports lower abdominal cramping pain up to "10/10" during this shift. Dilaudid frequency changed to PRN Q4hr, but still not lasting more than 2 hrs for pt. pt declined Toradol state " it doesn't work." pt has been C/O nausea multiple times during this shift, but no emesis. administered Zorfan 4-8 mg. Pt state, it helped for 1-2hrs, but not lasting longer. will continue to monitor.
[2016-11-10 06:05] VITALS: BP 152/86; PULSE 88; RESP 16; O2SAT 96
[2016-11-10 07:51] LABS: BASOPHILS % (AUTO) 0.2 % (0-3); EOSINOPHILS % (AUTO) 0.9 % (0-5); MONOCYTES % (AUTO) 7.4 % (4-12); Mean Corpuscular Hemoglobin 33.2 pg (27.0-35.0); Mean Corpuscular Volume 98.1 fL (81-100); NEUTROPHILS % (AUTO) 80.8 % (40-74); Platelet Count 281 bil/L (150-400)
[2016-11-10] MEDS: DULoxetine 30 mg DR Capsule PO SCH (08:03)
[2016-11-10] MEDS: Pantoprazole 4 mg/mL 10 mL Inj IVPUSH SCH (08:05)
--- NOTE | 2016-11-10 08:57 | NUR ---
Status Pt seen by MD at bedside this am 0730. Pain decently controlled, 11/26 and pt not requesting medications this am. NG to LIWS. Flatus present. Abdomen soft. Per , ok to have ice chips. MD to discuss with surgery. Per surgery orders to clamp NG [id number]. Clamped at 0845. Down to xray at 0855. Family at bedside. Pt and family understand plan of care. Explained to pt need to report increased pain or any n/v with NG clamped. Addendum: 11/10/16 at 0900 by LINA OTT RN wrong pt, disregard
--- NOTE | 2016-11-10 09:01 | NUR ---
Status MD notified that pt continues to report pain 8-10/10 and nausea this am, though until awakened seemed to be resting comfortably in bed. Notified of current pain and zofran schedule. No new orders per MD. To continue to monitor.
[2016-11-10 10:05] VITALS: BP 139/87; PULSE 84; RESP 12; O2SAT 98
--- NOTE | 2016-11-10 11:31 | NUR ---
Pt requesting MD come back in the room and speak with her. He returned paged and stated will be about 1 1/2 hours.
--- NOTE | 2016-11-10 13:00 | PCM.PNSURG ---
Subjective Date of Service: Nov 10, 2016 Date of Service: Nov 10, 2016 Visit Information: Subjective: mild epigastric pain and nausea overnight. Drinking fluids this am. s/p egd yesterday Postop General: No Complaints Objective Vital Sign- Last 8 Hours Date Time Temp Pulse Resp B/P Pulse Ox O2 Delivery O2 Flow Rate FiO2 11/10/16 10:05 36.5 84 12 139/87 98 Room Air 11/10/16 06:05 36.4 88 16 152/86 96 Room Air Intake and Output- Last 8 Hour 11/10/16 Cumulative From/Thru 07:00 11/07/16 13:18 - 11/10/16 06:17 Intake Total 1350 ml 47157 ml Output Total 1625 ml 8700 ml Balance -275 ml 3819 ml Intake Oral 118 ml 4719 ml IV Total 1232 ml 7800 ml Output Urine Total 1625 ml 8700 ml # Bowel Movements 0 0 General: Oriented X3 Neck: Supple Lungs: Clear to Auscultation Heart: Exam Unremarkable Abdomen: Benign, Soft, Appropriately tender, Non-distended, Normoactive bowel tones Extremities: Distal Pulses Palpable Result Diagram: 11/10/16 0721 11/10/16 0721 Assessment & Plan Impression 56 year old woman with an unfortunate history of bowel malrotation, diverticulitis, partial sinus inversus, and gastric reflux secondary to a hiatal hernia s/p Alina fundoplication, that presented to [facility] with persistent abdominal pain, nausea, and inability to tolerate po intake with resultant unintentional weight loss. GI was asked to consult to assist in her care. s/p egd 11/09/2016- IMPRESSIONS: Status post Alina fundoplication. Plan - Continue PPI - Bentyl 20mg QID prn pain - Follow up at after d/c home Problems: Resuscitation Status: CPR: Attempt Resuscitation Nura Couch MD Nov 10, 2016 13:00
[2016-11-10] MEDS ORDERED: ProchlorPERazine 5 mg/mL 2 mL Inj IVPUSH PRN (13:15)
--- NOTE | 2016-11-10 14:12 | NUR ---
NUTRITION ASSESSMENT: ASSESS:56 YO female history of bowel malrotation, diverticulitis, partial sinus inversus, and gastric reflux secondary to a hiatal hernia s/p Alina fundoplication, that presented to [facility] with persistent abdominal pain, nausea, and inability to tolerate PO intake with resultant unintentional weight loss of approx. 5 kg x 10 weeks = 8% = moderate malnutrition. PMHx:Bowel malrotation, diverticulitis, partial sinus inversus, and gastric reflux secondary to a hiatal hernia. DIET:Soft. PO intake 25% x 1 meal. Pt. c/o persistent nausea. LABS: BUN 2, Cr 0.29, Glu 112, Alb 3.2. MEDICATIONS: Zofran. NUTRITION FOCUSED PHYSICAL ASSESSMENT: GI symptoms / stool: No BM reported.Francis: 19 Skin Integrity: No issues reported. ANTHROPOMETRICS: Current Wt: 58.6 kgBMI: 19.0 kg/m2.Admit weight: 59.55 kg. IBW: (65.9 kg (88.9% IBW) ESTIMATED NEEDS (MODERATE MALNUTRITION): Calories: 1758 - 2051 kcal (30 - 35 kcal / kg BW) Protein: 70 - 88 g protein (1.2 - 1.5 g / kg BW) Fluid: Approx. 1758 mL (30 mL / kg BW) NUTRITION DIAGNOSIS: 1)Moderate malnutrition related to altered GI function, as evidenced by 8% weight loss x 10 weeks. INTERVENTION: 1) Will add Ensure to trays to increase calories and protein. 2) MONITOR/EVALUATE: Diet advance / tolerance, PO intake, labs, GI/nutrition status. Follow up per moderate nutrition risk guidelines.
[2016-11-10 14:55] VITALS: BP 129/84; PULSE 95; RESP 12; O2SAT 98
--- NOTE | 2016-11-10 14:58 | PCM.PNMED ---
Subjective Date of Service Nov 10, 2016 Subjective intemittent pain continues - trial of bentyl per GI. discussed need for u of w f/u to discuss continued sx of nausea/abdom. no f/c/cp/sob pt understandably frustrated with repeat admission and ongoing abdom pain after previous zen fundoplication - dc tomorrow after one more night of observation with diet Exam Vital Signs Vital Sign - Last Date Time Temp Pulse Resp B/P Pulse Ox O2 Delivery O2 Flow Rate FiO2 11/10/16 10:05 36.5 84 12 139/87 98 Room Air Intake and Output 11/09/16 11/09/16 11/10/16 Cumulative From/Thru 15:00 23:00 07:00 11/07/16 13:18 - 11/10/16 06:17 Intake Total 200 ml 2281 ml 1350 ml 42678 ml Output Total 2750 ml 1625 ml 8700 ml Balance 200 ml -469 ml -275 ml 3819 ml Intake Oral 1320 ml 118 ml 4719 ml IV Total 200 ml 961 ml 1232 ml 7800 ml Output Urine Total 2750 ml 1625 ml 8700 ml # Bowel Movements 0 0 Exam Gen:Well-nourished female, nad, BF at bedside HEENT: Atraumatic, Normocephalic, PERRL, sclerae anicteric Mouth: Moist oropharyngeal mucosa, no oral thrush Neck: Supple, no JVD, full range of motion, trachea is midline Chest: Normal respiratory effort, no chest wall deformities Lungs: Breath sounds normal, Clear to auscultation, No respiratory distress Heart : S1, S2 Regular rate & rhythm no gallop, no murmur Abdomen: Atraumatic, Soft, No rebound, No distention, moderate tenderness in the palpation. No palpable mass Extremities: No cyanosis,, No swelling, No calf tenderness Skin: Warm, Dry, No cyanosis, no rash or ulcers Neurologic: Alert, Oriented, grossly intact IVs and Medications Medications Reviewed: Medications were reviewed in detail Lab and Diagnostics Result Diagram: 11/10/1672011/10/16720 X-Rays, CTs and MRIs Abdominal CT scan reviewed, report noted: 1. New mild right hemiabdominal small bowel distention, which may indicate mild/ early small bowel obstruction, or gastroenteritis. 2. 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 3. No change in indeterminate low density hepatic focus; recommend attention to this region on followup imaging studies. 4. Appendix not seen; no evidence of appendicitis. 5. No change in low density focus involving the pancreatic head; recommend attention to this region on followup imaging studies. Assessment & Plan 1. Abdominal pain 2. pain secondary to Zen fundoplication with possible stricture 3. Elevated liver enzyme Chronic medical problems 1. Partial Situs Inversus 2. h/o Bowel malrotation 3. Diverticulitis 4. Irritable bowel syndrome 5. Hypothyroidism 6. Anxiety 7. Depression 8. Fibromyalgia 9. Arthritis 10. GERD 11. Pancreatitis 12. Hiatal hernia s/p repair 13. Migraines Plan : Status post EGD, no masses/ulcerations noted - moderately narrowed gastric inlet noted Continue IV fluid for hydration Zofran 4 mg IV every 4 hours when necessary follow nausea or vomiting--> switched to PO along with addition of Reglan Morphine sulfate 2 g IV every 4 hours --> decreased frequency of Dilaudid 0.5-1 mg every 6 and added Toradol. As needed, with bowel regimen Surgery Dr. Gatica consulted by ER physician - appreciate recs Patient will likely need follow-up with [facility] - pt has phone number and instructed to call eber to schedule appt GI Dr. Couch - appreciate recommendations Home medication reviewed and reconciled SCD for DVT prophylaxis . Dispo: discharge tomorrow Pain Evaluation: Adequate Pain Control GI Prophylaxis: Proton Pump Inhibitor VTE Prophylaxis: Sub-Q Heparin (Unfractionated) Resuscitation Status: CPR: Attempt Resuscitation Time spent 40 minutes spent with eval and mgmt Nura Kelley DO Nov 10, 2016 14:58
--- NOTE | 2016-11-10 15:53 | NUR ---
Skin assess Pt noticed to have edematous, red area over left elbow and extending upward. Not at IV insertion site. Per MD, to apply warm compresses and continue to monitor - if not improving to notify MD. Addendum: 11/10/16 at 1651 by LINA OTT RN wrong patient, disregard
--- NOTE | 2016-11-10 16:52 | NUR ---
NS Rate changed to 75ml/hr [id number] Addendum: 11/10/16 at 1653 by LINA OTT RN 1630, not 1730
[2016-11-10 17:55] VITALS: BP 140/100; PULSE 94; RESP 18; O2SAT 96
[2016-11-10 20:39] VITALS: BP 130/88; PULSE 85; RESP 20; O2SAT 100
--- NOTE | 2016-11-11 00:03 | NUR ---
ABDOMINAL CRAMPING P: Pt reports 5-7/10 abdominal pain, periumbilical and lower, cramping feeling. If pain gets to greater than 7/10, pain can radiate to back and feel like labor pains, dull and achy, occasionally sharp, per pt. With 1mg dilaudid q4h, pain gets down to 2-3/10 but "I only feel it right away then it goes away." I: Trial of bentyl tonight, given around 2029. Pt said she had taken bentyl before with success, "I definitely noticed when I didn't have it." At 2330, pt said the bentyl did not help but the abdominal discomfort here in the hospital was different from previously when bentyl did work. Pt willing to try again in morning--she said when she did take bentyl, she took a couple right away in the morning and that was successful. E: Gave dilaudid at 2200, was effective. Pt trying to sleep currently. Will given bentyl in the a.m.
[2016-11-11] MEDS: HYDROmorphone 0.5 mg/0.5 mL iSecure Syringe IVPUSH PRN ×4 (03:52→12:27)
[2016-11-11] MEDS: Alum-Mag Hydrox-Simeth 30 mL Suspension PO PRN (03:52)
[2016-11-11 05:36] LABS: BASOPHILS % (AUTO) 0.2 % (0-3); EOSINOPHILS % (AUTO) 4.8 % (0-5); MONOCYTES % (AUTO) 11.5 % (4-12); Mean Corpuscular Volume 98.8 fL (81-100); NEUTROPHILS % (AUTO) 59.4 % (40-74); Platelet Count 253 bil/L (150-400)
[2016-11-11 06:10] VITALS: BP 145/98; PULSE 88; RESP 17; O2SAT 98
[2016-11-11] MEDS: Pantoprazole 4 mg/mL 10 mL Inj IVPUSH SCH (06:15)
[2016-11-11] MEDS: Heparin 5,000 Unit/mL Inj SUBQ SCH (08:10)
[2016-11-11] MEDS: DULoxetine 30 mg DR Capsule PO SCH (08:32)
[2016-11-11 10:50] VITALS: BP 139/76; PULSE 96; RESP 17; O2SAT 95
--- NOTE | 2016-11-11 10:54 | PCM.DIMED ---
Discharge Instructions Date of Service Nov 11, 2016 Dates of Hospitalization Nov 07, 2016 at 18:18 Discharge Diagnosis Discharge Diagnosis Small bowel obstruction, POA History of Partial Situs Inversus History of bowel malrotation History of hernia status post repair History of diverticulitis History of irritable bowel syndrome History of hypothyroidism History of anxiety Depression Fibromyalgia Arthritis GERD History of pancreatitis Migraines Medication Instructions Please instructions Test Results s/p egd 11/09/2016- IMPRESSIONS: Status post Alina fundoplication. Plan - Continue PPI - Bentyl 20mg QID prn pain - Follow up at after d/c home CT abdomen PROCEDURE: CT ABDOMEN AND PELVIS WITH CONTRAST ([id number]) INDICATIONS: severe abdominal pain TECHNIQUE: After the administration of intravenous contrast, 5 mm thick sections acquired from the diaphragm to the symphysis. 5 mm coronal and sagittal reformats were acquired. For radiation dose reduction, the following was used: automated exposure control, adjustment of mA and/or kV according to patient size. COMPARISON: [facility], CT, CT ABD PELVIS W CON, 10/30/2016, 22:52. [facility], CT, CT ABD PELVIS W CON, 10/03/2016, 22:50. [facility], CT, CT ABD PELVIS W CON, 09/22/2016, 14:12. FINDINGS: Image quality: Excellent. ABDOMEN: Lung bases: Lung bases are clear. Heart size is normal. 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 Liver and right-sided spleen are normal in size. No change in low density within the left hepatic lobe inferiorly spanning roughly 30 mm. Gallbladder is within normal limits. Biliary system is non dilated. Pancreas is not well-seen. As before, a 35mm diameter low density cystic focus involves the pancreatic head. No adrenal nodules. Kidneys demonstrate normal size and enhancement, without hydronephrosis. Peritoneum and bowel: Malrotation of the bowel is present, with left-sided large bowel and left-sided ligament of Treitz, as before. Status post Alina fundoplication. There is mild small bowel distention within the right hemiabdomen, new since the prior examination, which may indicate gastroenteritis versus mild/early small bowel obstruction. No free fluid or air. Appendix not seen. No evidence of appendicitis. Nodes and vessels: No retroperitoneal or mesenteric adenopathy by size criteria. Aorta and inferior vena cava are normal in size. 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 Miscellaneous: No ventral hernias. PELVIS: Genitourinary: Bladder wall thickness is normal. Miscellaneous: No inguinal hernias or adenopathy. Bones: No suspicious bony lesions. No vertebral body compression fractures. IMPRESSION: 1. New mild right hemiabdominal small bowel distention, which may indicate mild/ early small bowel obstruction, or gastroenteritis. 2. 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 3. No change in indeterminate low density hepatic focus; recommend attention to this region on followup imaging studies. 4. Appendix not seen; no evidence of appendicitis. 5. No change in low density focus involving the pancreatic head; recommend attention to this region on followup imaging studies. Dictated by: Natty Briceno M.D. on 11/07/2016 at 16:01 Diet Other (low-fat soft diet) Activity No restrictions Call your provider Fever or Chills, Chest pain, Vomitting, Excessive diarrhea, Weakness (unilateral ) Patient Instructions Your hospitalized by a mild small bowel obstruction that improved with conservative management and you also had an EGD which is in the esophagus scope that showed evidence of your Alina fundoplication and gastric surgery but did not show any ulcerations or masses. Your seen by Dr. Gatica of surgery who noted that a small bowel evaluation previously did not show any evidence of blockage before his surgery. And he may consider repeating a small bowel evaluation with [facility] a follow-up appointment. Dr. Gatica also discouraged use of opioids given this can worsen your overall abdominal pain and cause opioid-induced constipation among slowing your got motion. Your dysphagia may be related to a narrowed gastric inlet after your previous surgery and this can also be evaluated with a gastric emptying study that can be done as an outpatient [facility]. I have given you a limited supply of [place], please optimize your acetaminophen use as further prescription for opioids will not be helpful for your gastric motility I have also prescribed Bentyl for abdominal spasms with which you have had success in the past Follow-up plan [facility], please call the telephone number first thing tomorrow morning to schedule an appointment with GI. Please see your primary care physician within one to weeks for follow-up as well Follow-up Provider: Abdirahman García Follow-up with PCP in: 1 week Nura Kelley DO Nov 11, 2016 10:54
[2016-11-11] MEDS ORDERED: DICY20TA10 PO (10:55)
--- NOTE | 2016-11-11 11:04 | PCM.DC.MED ---
Discharge Summary Date of Service Nov 11, 2016 Dates of Hospitalization Date of Hospital Admission Nov 07, 2016 at 18:18 Date of Discharge: Nov 11, 2016 Providers: Admitting Physician: Loreta Adorno MD Primary Care Physician: Other,Physician Attending Physician: Loreta Adorno MD Diagnosis at Time of Discharge Diagnosis at Time of Discharge Small bowel obstruction, POA Possible gastric stricture, status post fundoplication History of Partial Situs Inversus History of bowel malrotation History of hernia status post repair History of diverticulitis History of irritable bowel syndrome History of hypothyroidism History of anxiety Depression Fibromyalgia Arthritis GERD History of pancreatitis Migraines Consultations Dr. Gatica of surgery Dr. Couch of GI Procedures XRay, CTs & MRIs PROCEDURE: CT ABDOMEN AND PELVIS WITH CONTRAST ([id number]) INDICATIONS: severe abdominal pain TECHNIQUE: After the administration of intravenous contrast, 5 mm thick sections acquired from the diaphragm to the symphysis. 5 mm coronal and sagittal reformats were acquired. For radiation dose reduction, the following was used: automated exposure control, adjustment of mA and/or kV according to patient size. COMPARISON: [facility], CT, CT ABD PELVIS W CON, 10/30/2016, 22:52. [facility], CT, CT ABD PELVIS W CON, 10/03/2016, 22:50. [facility], CT, CT ABD PELVIS W CON, 09/22/2016, 14:12. FINDINGS: Image quality: Excellent. ABDOMEN: Lung bases: Lung bases are clear. Heart size is normal. 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 Liver and right-sided spleen are normal in size. No change in low density within the left hepatic lobe inferiorly spanning roughly 30 mm. Gallbladder is within normal limits. Biliary system is non dilated. Pancreas is not well-seen. As before, a 35mm diameter low density cystic focus involves the pancreatic head. No adrenal nodules. Kidneys demonstrate normal size and enhancement, without hydronephrosis. Peritoneum and bowel: Malrotation of the bowel is present, with left-sided large bowel and left-sided ligament of Treitz, as before. Status post Alina fundoplication. There is mild small bowel distention within the right hemiabdomen, new since the prior examination, which may indicate gastroenteritis versus mild/early small bowel obstruction. No free fluid or air. Appendix not seen. No evidence of appendicitis. Nodes and vessels: No retroperitoneal or mesenteric adenopathy by size criteria. Aorta and inferior vena cava are normal in size. 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 Miscellaneous: No ventral hernias. PELVIS: Genitourinary: Bladder wall thickness is normal. Miscellaneous: No inguinal hernias or adenopathy. Bones: No suspicious bony lesions. No vertebral body compression fractures. IMPRESSION: 1. New mild right hemiabdominal small bowel distention, which may indicate mild/ early small bowel obstruction, or gastroenteritis. 2. 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 3. No change in indeterminate low density hepatic focus; recommend attention to this region on followup imaging studies. 4. Appendix not seen; no evidence of appendicitis. 5. No change in low density focus involving the pancreatic head; recommend attention to this region on followup imaging studies. Dictated by: Natty Briceno M.D. on 11/07/2016 at 16:01 Other Diagnostics EGD 11/09 FINDINGS: Upon inspection of the esophagus, the esophagus was normal without masses, ulcers, or lesions. Z-line located 40 cm from incisors. Upon entering the stomach, the stomach also appeared normal without masses, ulcers, or lesions. Retroflexion showed a Alina fundoplication that was performed. Duodenal bulb, first and second portion normal. Biopsy taken of antrum, body of the stomach. IMPRESSIONS: Status post Alina fundoplication. RECOMMENDATION: Await pathology results. Patient has followup at [facility] which she should follow up there. August 2016 PREOPERATIVE DIAGNOSIS(ES): Hiatal hernia with gastroesophageal reflux disease, along with malrotation and partial situs inversus. POSTOPERATIVE DIAGNOSIS(ES): Hiatal hernia with gastroesophageal reflux disease, along with malrotation and partial situs inversus. PROCEDURE PERFORMED: Laparoscopic repair of hiatal hernia with Alina fundoplication. Brief History History of present illness as per admitting physician: Pt is a 55 y/o female w/ a myriad of past medical problems including : Partial situs inversus, bowel malrotation, diverticulitis, IBS, hernia s/p repair, Alina fundoplication for a hiatal hernia surgical repair performed by Dr. Gatica 6 weeks ago presenting to the ED c/o intermittent abdominal pain onset 6 weeks ago, fibromyalgia, h/o pancreatitis She presented to the hospital complaining of worsening abdominal pain since her surgery 6 weeks ago. .Pain is like rubber band constricting her abdomen. Associated symptoms are : loss of appetite, diarrhea, nausea but no vomiting .She also reported a 15 lbs weigh loss since her surgery. She was seen by her surgeon and was told her pain is unlikely form the surgery. She was seen multiple time by her PCP/ urgent care for her abdominal pain In the ER today , she had a CT scan which shows : 1. New mild right yehuda abdominal small bowel distention, which may indicate mild/early small bowel obstruction, or gastroenteritis. 2. 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 3. No change in indeterminate low density hepatic focus; recommend attention to this region on followup imaging studies. 4. Appendix not seen; no evidence of appendicitis. 5. No change in low density focus involving the pancreatic head; recommend attention to this region on followup imaging studies. GASTROENTEROLOGY CONSULT NOTE Ms. Pena is a pleasant 55 year old woman with an unfortunate history of bowel malrotation, diverticulitis, partial sinus inversus, and gastric reflux secondary to a hiatal hernia s/p Alina fundoplication, that presented to [facility] with persistent abdominal pain, nausea, and inability to tolerate po intake with resultant unintentional weight loss. GI was asked to consult to assist in her care. Patient recently received laparoscopic repair of hiatal hernia with Alina fundoplication 09/17/2016. Patient states that her initial symptoms of reflux have subsided, but she has since developed persistent abdominal pain, described as a sharp, twisting, constricting sensation that is always present. She has been unable to tolerate any po intake, including liquids and solids. Reports best tolerance of apple juice. Due to her severe symptoms or nausea and pain, she has unintentionally lost > 10lbs over the recent 6 weeks secondary to poor po intake. She feels as if she is unable to vomit. States current tobacco use, with a reported two cigarettes daily, which is much decreased from her previous ; denies history of recent chronic or daily alcohol use, but does admit to a history of alcohol use that led to a bout of pancreatitis. EGD noted 06/2016 revealed a type 3 paraesophageal hernia; procedure was indicated for abnormal CT findings of malrotation and hiatal hernia. Biopsies revealed active inflammation and reactive epithelial changes, but was negative for dysplasia and malignancy. Colonoscopy 11/2014: Cecal polyp removed with cold bx forceps, scattered diverticula of left colon, tortuous colon, and small internal hemorrhoids; repeat recommended in 5 years from date of service. General surgery has also been consulted to assist in her care and management. Hospital Course Abdominal pain, patient's abdominal pain appeared to be into a dysphagia, nausea and vomiting upper abdominal pain associated with food intake and an EGD was pursued by GI with no masses/ulcerations noted. Possibly a moderately narrowed gastric inlet from previous Alina fundoplication. Patient has a very complicated congenital abdominal anatomy and overall treatment included nausea control and pain control with morphine dose escalated to Dilaudid and Dilaudid was weaned given patient's history of chronic pain medication use. Patient will be discharged as very few [place] and instructed to continue non-opioid therapy including acetaminophen and NSAIDs sparingly if needed. Patient was found to have a small bowel obstruction on CT initially which patient began to tolerate food and at the time discharge was eating a soft diet with minimal pain but continued off and on to complain of waxing and waning abdominal symptoms. Patient was passing gas and having bowel movements at time discharge and remained hemodynamically stable with adequate oxygenation and afebrile. Both GI and surgical specialties recommend [facility] follow-up with GI clinic to evaluate a gastric emptying study or small bowel follow-through. Patient was aware and educated about this and will be calling and has a phone number for the [facility] clinic with which she had a previous appointment set up but she had to miss due to her current hospitalization. Chronic medical problems 1. Partial Situs Inversus 2. h/o Bowel malrotation 3. Diverticulitis 4. Irritable bowel syndrome 5. Hypothyroidism 6. Anxiety 7. Depression 8. Fibromyalgia 9. Arthritis 10. GERD 11. Pancreatitis 12. Hiatal hernia s/p repair 13. Migraines Exam Vital Signs (Last) Date Time Temp Pulse Resp B/P Pulse Ox O2 Delivery O2 Flow Rate FiO2 11/11/16 10:50 36.8 96 17 139/76 95 Room Air Exam Gen:Well-nourished female, nad, BF at bedside HEENT: Atraumatic, Normocephalic, PERRL, sclerae anicteric Mouth: Moist oropharyngeal mucosa, no oral thrush Neck: Supple, no JVD, full range of motion, trachea is midline Chest: Normal respiratory effort, no chest wall deformities Lungs: Breath sounds normal, Clear to auscultation, No respiratory distress Heart : S1, S2 Regular rate & rhythm no gallop, no murmur Abdomen: Atraumatic, Soft, No rebound, No distention, moderate tenderness in the palpation. No palpable mass Extremities: No cyanosis,, No swelling, No calf tenderness Skin: Warm, Dry, No cyanosis, no rash or ulcers Neurologic: Alert, Oriented, grossly intact Test 11/07/16 14:04 11/07/16 14:10 11/08/16 07:35 11/11/16 05:00 Magnesium Level 1.7mg/dL (1.6-2.6) Lipase 5U/L (13-60) Hold Singh Top Tube Received (Received) Hold Urine Received (Received) Total Bilirubin 0.4mg/dL (0.0-1.2) Aspartate Amino Transf (AST/SGOT) 39U/L (0-50) Alanine Aminotransferase (ALT/SGPT) 22U/L (0-32) Alkaline Phosphatase 99U/L (25-150) Total Protein 5.4g/dL (6.4-8.4) Albumin 3.2g/dL (3.4-5.0) White Blood Count 6.1th/mm3 (3.8-10.1) Red Blood Count 3.33mil/mm3 (3.90-5.20) Hemoglobin 11.0g/dL (12.0-15.6) Hematocrit 32.9% (35.0-46.0) Mean Corpuscular Volume 98.8fL (81-100) Mean Corpuscular Hemoglobin 33.0pg (27.0-35.0) Mean Corpuscular Hemoglobin Concent 33.4% (32.0-37.0) Red Cell Distribution Width 13.5% (12.3-15.4) Platelet Count 253bil/L (150-400) Neutrophils (%) (Auto) 59.4% (40-74) Lymphocytes (%) (Auto) 24.1% (14-46) Monocytes (%) (Auto) 11.5% (4-12) Eosinophils (%) (Auto) 4.8% (0-5) Basophils (%) (Auto) 0.2% (0-3) Sodium Level 138mEq/L (134-144) Potassium Level 4.3mEq/L (3.5-5.2) Chloride Level 102mEq/L (97-108) Carbon Dioxide Level 25mmol/L (18-29) Blood Urea Nitrogen 3mg/dL (6-24) Creatinine 0.33mg/dL (0.57-1.00) Estimat Glomerular Filtration Rate 297mL/min (>59) Glucose Level 115mg/dL (60-99) Calcium Level 8.4mg/dL (8.5-10.1) Discharge Medications Discharge Medications Ascorbate Calcium (Vitamin C) 500 Mg Tablet 1,500 MG PO DAILY (Reported) Cholecalciferol (Vitamin D3) (Vitamin D3) 2,000 Unit Tablet 4,000 UNIT PO DAILY (Reported) Duloxetine (Cymbalta) 30 Mg Capsule.dr 90 MG PO DAILY (Reported) Gabapentin (Gabapentin) 300 Mg Capsule 900 MG PO HS (Reported) Omeprazole (Omeprazole) 20 Mg Capsule.dr 40 MG PO DAILY (Reported) Thyroid,Pork (Oracle Thyroid) 120 Mg Tablet 120 MG PO QAM (Reported) As needed Cyclobenzaprine (Cyclobenzaprine) 10 Mg Tablet 10 MG PO TID PRN PRN For Spasm ( Reported) Dicyclomine (Dicyclomine) 20 Mg Tablet 20 MG PO QID PRN PRN For GI Cramps Prescribed by: LORETA BAKER, DO Ondansetron ODT (Ondansetron ODT) 4 Mg Tablet 4 MG PO Q8H PRN PRN For Nausea/ Vomiting Prescribed by: YESI FOOTE, DO Additional med instructions Please instructions Followup Plan Follow-up plan [facility], please call the telephone number first thing tomorrow morning to schedule an appointment with GI. Please see your primary care physician within one to weeks for follow-up as well Discharge Diet: Other (low-fat soft diet) Discharge Activity: No restrictions Patient Instructions Your hospitalized by a mild small bowel obstruction that improved with conservative management and you also had an EGD which is in the esophagus scope that showed evidence of your Alina fundoplication and gastric surgery but did not show any ulcerations or masses. Your seen by Dr. Gatica of surgery who noted that a small bowel evaluation previously did not show any evidence of blockage before his surgery. And he may consider repeating a small bowel evaluation with [facility] a follow-up appointment. Dr. Gatica also discouraged use of opioids given this can worsen your overall abdominal pain and cause opioid-induced constipation among slowing your got motion. Your dysphagia may be related to a narrowed gastric inlet after your previous surgery and this can also be evaluated with a gastric emptying study that can be done as an outpatient formerly [facility]. I have given you a limited supply of [place], please optimize your acetaminophen use as further prescription for opioids will not be helpful for your gastric motility I have also prescribed Bentyl for abdominal spasms with which you have had success in the past Follow-up Provider: Abdirahman García Follow-up with PCP in: 1 week Time spent 40 minutes spent with evaluation and management including discharge, greater than 50% of time was spent [id number] copies to: Abdirahman García; Loreta Couch MD, David DO Nov 11, 2016 11:04
[2016-11-11] MEDS ORDERED: HYDR-3740 PO (11:07)
--- NOTE | 2016-11-11 11:15 | NUR ---
Social Work: Discharge D: Pt discussed in am rounds. Pt is medically stable for discharge home today. KITCHEN AND BATH DESIGNER briefly met with pt at bedside to confirm discharge plan. pt states she is connected with all of the community services she needs and will be following up with [place]. She has no concerns about d/c home. KITCHEN AND BATH DESIGNER reviewed Advanced directives. She has not completed these. KITCHEN AND BATH DESIGNER provided her with information and requested copy for chart if she completes. A: Pt who is I at baseline. P: Pt to discharge home via POV; no social work needs. GLO Boss
--- NOTE | 2016-11-11 13:30 | NUR ---
DISCHARGE Patient discharge home via pov, discharge instructions, hard copy of prescription and notes given, given 2 dose of prn dilaudid for 8/10 pain scale for abdominal pain prior to discharge with a effective results, personal belongings taken.
--- NOTE | 2016-11-12 16:08 | PATH ---
SURGICAL PATHOLOGY Attending Physician:Nura Couch MD CASE STATUS: Signed Out PATIENT NAME: AMANDO CLEMENS PID: [id number] : 1960 DATE COLLECTED:11/09/2016 17:13 SPECIMEN: 1: Gastric, Biopsy 2: Stomach, Antrum, Biopsy CLINICAL HISTORY: Abdominal Pain, Status Post Alina fundoplication 1). GASTRIC BODY BX 2). ANTRAL BXS FINAL DIAGNOSIS: 1.STOMACH, BODY, BIOPSY: BODY-TYPE MUCOSA WITH NO DIAGNOSTIC ABNORMALITY. Negative for Helicobacter organisms. Negative for intestinal metaplasia. Negative for dysplasia and malignancy. 2.STOMACH, ANTRUM, BIOPSIES: ANTRAL MUCOSA WITH NO DIAGNOSTIC ABNORMALITY. Negative for Helicobacter organisms. Negative for intestinal metaplasia. Negative for dysplasia and malignancy. ICD10 CODE R10.9 GROSS DESCRIPTION: Received are two formalin-filled containers, both labeled with the patient' s name: 1. Received in formalin, labeled with the patient' s name and "1. Gastric body BX", are three fragments of boss, soft tissue ranging in size from 0.1 x 0.1 x 0.1 cm to 0.2 x 0.1 x 0.1 cm. All fragments are totally submitted in cassette 1A. 2. Received in formalin, labeled with the patient' s name and "2. Antral BXs", are two fragments of boss, soft tissue ranging in size from 0.2 x 0.1 x 0.1 cm to 0.2 x 0.2 x 0.1. All fragments are totally submitted in cassette 2A. ([id number]) MICRO DESCRIPTION: See diagnosis. ICD-9 CODES: CPT CODES: 1: 91320 2: 03364 Electronically Signed Out Tracey Wagner MD [facility] Pathology [facility] [address], [place] [address] Technical component performed at [facility], [facility] [address], [place], [address]
== END 2016-11-11 13:30 | disposition home or self-care (01) | DRG 390 ==
LOC: SED 13:06 → OBSVTOIN 18:18 → MOC 18:18
PROVIDERS: ADMIT Internal Medicine; ATTEND Internal Medicine
PROC: 0DB68ZX Excision of Stomach, Via Natural or Artificial Opening Endoscopic, Diagnostic (ICD-10-PCS; principal; 2016-11-09 08:00)
DX: K56.69 Other intestinal obstruction (principal); F17.210 Nicotine dependence, cigarettes, uncomplicated; R10.84 Generalized abdominal pain; Z86.010 Personal history of colon polyps; K31.89 Other diseases of stomach and duodenum

== ENCOUNTER 2016-11-15 17:19 | Observation (INO) | payer OTHER ==
[~2016-11-15] VITALS: Ht 175.3 cm; Wt 58.2 kg
[~2016-11-15 17:19] MED LIST changes: -ACET650S24 PO; +ASCO-294 PO; -ASCO1500 PO; -FLUT9.9S NS; +GABA-502 PO; +HYDR-3740 PO; -HYDR-4003 PO; -HYOS0.1297 PO; -IBUP100O10 PO; -LORA0.5T PO; -MTC5T PO; -OMEP20TA86 PO; -ONDA4TAB9 PO; -ONDA8TAB10 PO; -OXYC5CAP4 PO; -OXYC5SOL11 PO; -SULF1TAB7 PO
[2016-11-15 17:27] VITALS: BP 171/101; PULSE 97; RESP 24; O2SAT 100
[2016-11-15 17:55] LABS: BASOPHILS % (AUTO) 0.5 % (0-3); MONOCYTES % (AUTO) 15.3 % (4-12); Mean Corpuscular Hemoglobin 32.9 pg (27.0-35.0); Mean Corpuscular Volume 96.9 fL (81-100); NEUTROPHILS % (AUTO) 60.3 % (40-74); Platelet Count 421 bil/L (150-400)
[2016-11-15] MEDS: Ondansetron 2 mg/mL 2 mL Inj IVPUSH PRN ×2 (17:57→18:23)
--- NOTE | 2016-11-15 18:00 | ED.REPORT ---
HPI-Abd Pain F 40 and Over Date of Service Nov 15, 2016 ED Provider: Leon Ni MD Patient is a 56 year old female with a history of bowel malrotation, diverticulitis, partial sinus inversus, and gastric reflux secondary to a hiatal hernia s/p Alina fundoplication who presents to the ED complaining of severe lower abdominal pain that began at 1330 today. The patient describes her pain as a cramping pain, as severe as if she were "having a baby". Patient states that her pain is worse than anything she has experienced prior. She states that the pain radiates up into her chest, which is also cramping in character. Her chest pain is a new symptom for her. Her abdminal pain is similar to when she was recently admitted to [facility] from -11/11. The patient was treated for a possible small bowel obstruction, with EGD showing showing no acute problem. The patient states she has been experiencing intermittent abdominal pain since her surgery. The patient saw her GI provider at the [facility] today, who prescribed her an unknown new medication for abdominal cramping. The patient is unsure it is was this new medication that caused her symptoms today. This was a follow-up appointment due to her recent hospital admission. Patient admits to associated, diaphoresis, chills, nausea, and dry heaving. Patient reports losing 17lbs over the past 2 months, due to inability to eat. She reports passing gas and having normal bowel movements, She denies bloody or tarry stools. Patient denies a personal or family history of heart disease. She denies a history of hypertension, hyperlipidemia, or diabetes mellitus. Nursing Notes Stated Complaint: CHEST PAIN,VOMITING Chief Complaint: Female Abdominal Pain Nursing Notes Reviewed: Yes (Planbus not reconciled) Allergies: Coded Allergies: levothyroxine sodium (Verified Allergy, Unknown, Upset stomach, nausea, ) promethazine (Verified Adverse Reaction, Severe, Extrapyramidal Symptoms, 11/15/16) HAS TOLERATED RECENTLY - INGA IN EARLY 20s droperidol (Verified Adverse Reaction, Intermediate, Agitation, 11/15/16) hydroxyzine (Verified Adverse Reaction, Intermediate, Agitation, 11/15/16) amoxicillin (Verified Adverse Reaction, Mild, STOMACH UPSET, 11/15/16) clavulanic acid (Verified Adverse Reaction, Mild, STOMACH UPSET, 11/15/16) nitrofurantoin (Verified Adverse Reaction, Unknown, Diarrhea, 11/15/16) Scheduled Ascorbate Calcium (Vitamin C) 500 Mg Tablet 1,500 MG PO DAILY Cholecalciferol (Vitamin D3) (Vitamin D3) 2,000 Unit Tablet 4,000 UNIT PO DAILY Duloxetine (Cymbalta) 30 Mg Capsule.dr 90 MG PO DAILY Gabapentin (Gabapentin) 300 Mg Capsule 900 MG PO HS Omeprazole (Omeprazole) 20 Mg Capsule.dr 40 MG PO DAILY Thyroid,Pork (Bangs Thyroid) 120 Mg Tablet 120 MG PO QAM Scheduled PRN Cyclobenzaprine (Cyclobenzaprine) 10 Mg Tablet 10 MG PO TID PRN PRN For Spasm Dicyclomine (Dicyclomine) 20 Mg Tablet 20 MG PO QID PRN PRN For GI Cramps Hyoscyamine Liquid (Hyoscyamine Liquid) 0.125 Mg/1 Ml Drops 0.125 ML PO QID PRN PRN abdominal cramping Ondansetron ODT (Ondansetron ODT) 4 Mg Tablet 4 MG PO Q8H PRN PRN For Nausea/ Vomiting Prochlorperazine Maleate (Compazine Suppository) 25 Mg Supp.rect 25 MG RC DIRECTED PRN PRN For Nausea General Time Seen by MD: 17:58 Chief Complaint Abdominal pain Hx Obtained From: Patient Arrived By: Walk-in Sudden in Onset?: No Onset Occurred: 5 - 8 hours ago Symptom Duration: Since onset Progression since Onset: Gradually worsening Location: : Epigastric Quality: Cramping, Painful Severity: Current: Severe Severity: Maximum: Severe Associated with: Reports: Chills, Nausea Additional Notes: diaphoresis Pertinent Negative: Pt denies other symptoms Recent Healthcare: Recent doctor visit, Recent hospitalization Similar Sx Previous: Yes Past Medical History Past Medical History 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) ho Bowel malrotation Diverticulitis Irritable bowel syndrome Possible colitis Hypothyroidism Anxiety Depression Chronic sinusitis Fibromyalgia Arthritis GERD Pancreatitis Hiatal hernia s/p repair Migraines small bowel obstruction Denies: Diabetes mellitus, Hyperlipidemia, Hypertension Past Surgical History Rectocele Sinus surgery Eye surgery Hernia Laproscopic Alina fundoplication Abdominoplasty Bladder suspension Reports: Appendectomy, , Hysterectomy, Tonsillectomy Family History Father type 1 DM Denies: Coronary artery disease Smoking History Former Smoker Social History Lives with her spouse on [address], 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 Skin: Reports Diaphoresis Physical Exam Physical Exam Notes: Vital Signs Vital Signs (First) Date Time Temp Pulse Resp B/P Pulse Ox O2 Delivery O2 Flow Rate FiO2 11/15/16 17:27 25.6 97 24 171/101 100 Room Air Initial VS: Reviewed, Vital signs abnormal Head / Eyes: Atraumatic, Normocephalic, PERRL ENT: Mucous membranes moist, Conjunctiva normal, No scleral icterus Neck: Supple, Full range of motion Neurologic: Alert, Oriented, Nonfocal Psychiatric: Mood/affect normal, Behavior normal, Normal thought content General/Constitutional: Awake, Alert Behavior: Positive: Anxious Appearance / Presentation: Positive: Cachectic, Uncomfortable moaning and extremely dramatic reports cannot give history due extreme pain hypertensive, initial temepraute is a typo, she not is hypothermic Respiratory / Chest: Breath sounds NL, Breath sounds = bilat, No respiratory distress, No rales, No rhonchi, No wheezing Cardiovascular: Heart rate NL, Regular rhythm, Heart sounds NL, No murmurs Abdomen: Soft Tenderness/Guarding/Rebound: Positive: Tender diffuse (tender everywhere, points to lower abdomen when asked where her maximum discomfort is) Back: Atraumatic Skin: Warm, Dry Color / Condition: Negative: Diaphoresis present Upper Extremity / MS: No swelling, No deformity, No edema Lower Extremity / Pelvis / MS: No swelling, No deformity, No edema Interpretation & Diagnostics Lab Results Interpretation Result Diagram: 11/15/16174411/15/165 Test 11/15/16 17:45 White Blood Count 6.2th/mm3 (3.8-10.1) Red Blood Count 4.26mil/mm3 (3.90-5.20) Hemoglobin 14.0g/dL (12.0-15.6) Hematocrit 41.3% (35.0-46.0) Mean Corpuscular Volume 96.9fL (81-100) Mean Corpuscular Hemoglobin 32.9pg (27.0-35.0) Mean Corpuscular Hemoglobin Concent 33.9% (32.0-37.0) Red Cell Distribution Width 13.9% (12.3-15.4) Platelet Count 421bil/L (150-400) Neutrophils (%) (Auto) 60.3% (40-74) Lymphocytes (%) (Auto) 22.7% (14-46) Monocytes (%) (Auto) 15.3% (4-12) Eosinophils (%) (Auto) 1.0% (0-5) Basophils (%) (Auto) 0.5% (0-3) Sodium Level 135mEq/L (134-144) Potassium Level 4.0mEq/L (3.5-5.2) Chloride Level 97mEq/L (97-108) Carbon Dioxide Level 18mmol/L (18-29) Blood Urea Nitrogen 5mg/dL (6-24) Creatinine 0.37mg/dL (0.57-1.00) Estimat Glomerular Filtration Rate 261mL/min (>59) Glucose Level 158mg/dL (60-99) Calcium Level 10.0mg/dL (8.5-10.1) Magnesium Level 1.5mg/dL (1.6-2.6) Total Bilirubin 0.4mg/dL (0.0-1.2) Aspartate Amino Transf (AST/SGOT) 60U/L (0-50) Alanine Aminotransferase (ALT/SGPT) 34U/L (0-32) Alkaline Phosphatase 150U/L (25-150) Total Protein 7.9g/dL (6.4-8.4) Albumin 4.0g/dL (3.4-5.0) Lipase 5U/L (13-60) Lab Results Interpretation: CBC normal CMP normal Troponin #1 negative Magnesium slightly low Lipase normal ECG Interpretation ECG Interpretation: Sinus tachycardia, Rate 110 Deep T wave abnormalities and inversions in V3-V6, questionable 1, AVL, and lead 2. This is worse compared to findings present, but not as pronounced, as seen on October 30 2016. Time: 17:40 Interpreted by: ED physician, Electronic Game Developer (reviewed with Dr. Vogel) ECG Interpretation: Sinus rhythm, Rate 90 Continued T wave inversions anterolaterally, negative cleaner EKG, clear that the T wave inversions in 1 and AVL are definately more pronounced than October 30 2016. Time: 18:55 Interpreted by: ED physician, Electronic Game Developer (reviewed with Dr. Vogel) X-Ray Chest Interpretation Chest Xray Interpretation: IMPRESSION: No acute process. Dictated by: Natty Briceno M.D. on 11/15/2016 at 18:19 Approved by: Natty Briceno M.D. on 11/15/2016 at 18:19 View: Portable Interpretation / Wet Read by: Interpret - Radiologist CT Abd / Pelvis Interpretation IMPRESSION: 1. No acute process. 2. 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 3. No change in indeterminate low density hepatic focus; recommend attention to this region on followup imaging studies. 4. Appendix not seen; no evidence of appendicitis. 5. No change in low density focus involving the pancreatic head; recommend attention to this region on followup imaging studies. Dictated by: Natty Briceno M.D. on 11/15/2016 at 20:18 Approved by: Natty Briceno M.D. on 11/15/2016 at 20:24 Interpretation / Wet Read by: Interpret - Radiologist Re-Eval/Medical Decision Med Decision/Clinical Course This is a 56-year-old female presents complaining of abdominal pain-area in the lower abdominal pain, radiating up into the abdomen and chest, however. She reports having recurrent episodes of unexplained abdominal pain is undergone extensive workup without clear pathology identified. The symptoms all started following a laparoscopic Alina she underwent in August, which is had multiple admissions, multiple provider visits seen GI-was just admitted for an evaluation and repeat endoscopy last week. Today she saw a [facility] electronic operator for a second opinion as well. Procedure none of the medications have helped. She will she has episodic pain- but is really disturbing her life-and that now she has had about 17 pound unintentional weight loss. She has had no fevers. Today was the worst episode of pain she has ever had, and again it was in the lower abdomen, but did radiate up into the chest. On arrival she is severely hypertensive, and multiple blood pressure measurements confirm this. She does not have a prior history of hypertension. She appeared in severe discomfort, is adamant she does have pain medicine. Efforts are being tried to minimize the use of controlled substances. She did receive a dose of Dilaudid with improvement. Blood work was obtained which is normal. However EKG is also obtained given the severe hypertension and has striking T-wave abnormalities that do appear worse compared to prior EKG just several weeks ago. However clinical presentation is very atypical for cardiac cause. The patient thinks her blood pressure is elevated due to pain. She did receive atotal 2 mg Dilaudid overall with marked improvement, reevaluation patient is now comfortable and normal-and her blood pressure is now normal. He also received 2 doses of metoprolol, and again with both the pain and medication a beta julio the patient's vitals normalized. She underwent a CT angiogram of the chest abdomen pelvis which was negative for dissection or vascular disease, and no clear etiology of the abdominal pain was identified. EKG findings, hypertension remained concerning-the patient is not had prior cardiac workup per the records. I discussed the case with the on-call stiff straw hat washer. The plan at this point as an observation admission for serial troponins, and then an echo, or stress echo evaluation. The case is discussed with the hospitalist. I have carefully explained to the patient that I have no indication unfortunately know why she is having such severe episodes of abdominal pain, and recommended hospitalization is focusing on identifying whether or not there is any relationship of concern are major issue regarding her EKG and hypertension-but it may be likely that we will not be able to give a better indication of cause of abdominal pain. Patient is understanding of this. Source of Hx: Old records Re-Evaluation/Progress #1: Time of Eval: 19:23 Patient Status: Condition improved, Mild relief Re-Evaluation/Progress Note: Rechecked the patient. She reports mild pain relief following medication. Patient states that her pain is improved if she lays flat on her back. She localizes her pain to her lower abdomen at this time. She reports some ongoing chest and upper abdominal pain, which she states feels like gas. Discussed her lab results thus far. The patient is also found to have high blood pressure, which she states is an ongoing issue since her surgery. She reports ongoing nausea. Re-Evaluation/Progress #2: Time of Eval: 20:38 Patient Status: Condition improved Re-Evaluation/Progress Note: Rechecked the patient. Patient states that she is improved. Discussed the results of her CT scan, with no acute problem identified. Patient will be admitted to the hospital for further care. Specifically to workup her abnormal EKG findings and hypertension. Patient understands and agrees with this plan. All questions were addressed. Consultation #1: Referral / Consult Name: Mary Vogel MD Consulted With: Cardiology Call Returned at: 19:01 Voip Network Technician: Agrees with eval, Agrees with plan Note: Spoke with Dr. Vogel, about the patient's EKG changes. He agrees with plan to admit the patient. She will need an echocardiogram. Consultation #2: Referral / Consult Name: Jeanine Garcia DO Consulted With: Hospitalist Call Returned at: 20:52 Voip Network Technician: Will see patient, Agrees with eval, Agrees with plan, Accepts admit Note: Spoke with Dr. Garcia, hospitalist, who agrees to accept admit. Differential Diagnosis: Positive: Acute abdominal pain, Negative: Abdominal aortic aneurysm, Contusion abdominal wall, Diabetic ketoacidosis, Diverticular disease, Ectopic preg ruptured, Ectopic , Endometriosis, Gun shot wound abdomen, Pancreatitis, Stab wound abdomen Counseled Regarding: Diagnosis, Lab results, Need for admission Discharge & Departure Primary Impression: Abdominal pain Abdominal location: generalized Qualified Code: R10.84 - Generalized abdominal pain Additional Impressions: Hypertension Hypertension type: unspecified secondary hypertension Hypertension goal: unspecified goal Qualified Code: I15.9 - Secondary hypertension, unspecified Abnormal EKG Disposition: ADMITTED TO HOSPITAL Discharge Condition All VS Reviewed: Yes Condition: Stable Referrals: OTHER,PHYSICIAN (PCP) (Family) Scribe Attestation Portions of this note were transcribed by Yoon Lee. I, Dr. Ni personally performed the history, physical exam and medical decision-making; I reviewed and confirmed the accuracy of the information in the transcribed note. Signed by: Debra Rosado, 11/15/20162054 copies to: OTHER,PHYSICIAN Leon Ni MD Nov 15, 2016 18:00 Yoon Lee Nov 15, 2016 18:03 Leon Ni MD Nov 15, 2016 18:00 Yoon Lee Nov 15, 2016 18:03
[2016-11-15] MEDS ORDERED: Ondansetron 2 mg/mL 2 mL Inj IVPUSH ONE ×2 (18:10→19:30)
[2016-11-15] MEDS ORDERED: HYDROmorphone 1 mg/mL Inj IVPUSH ONE ×2 (18:10→19:30)
--- NOTE | 2016-11-15 18:21 | DRSVH ---
PROCEDURE: X-RAY CHEST ONE VIEW, PORTABLE ([id number]) INDICATIONS: chest pain TECHNIQUE: One view of the chest was acquired. COMPARISON: [facility], CR, XR CHEST 1VW (PORTABLE), 10/30/2016, 20:57. [facility], [facility], [facility]R ABD ACUTE SERIES 3VW, 10/11/2016, 23:03. FINDINGS: Surgical changes and devices: None. Lungs and pleura: No pleural effusions or pneumothorax. Lungs are clear. Mediastinum: Mediastinal contours appear normal. Heart size is normal. Bones and chest wall: No suspicious bony lesions. Overlying soft tissues appear unremarkable. IMPRESSION: No acute process. Dictated by: Natty Briceno M.D. on 11/15/2016 at 18:19 Approved by: Natty Briceno M.D. on 11/15/2016 at 18:19
[2016-11-15 18:22] LABS: TROPONIN T < 0.010 ug/L (0.0-0.011)
[2016-11-15 18:33] LABS: Lipase 5 U/L (13-60); Magnesium 1.5 mg/dL (1.6-2.6)
[2016-11-15 19:14] VITALS: BP 193/126; PULSE 103; RESP 17; O2SAT 98
[2016-11-15] MEDS ORDERED: MeTOProlol 1 mg/mL 5 mL Inj IVPUSH ONE ×2 (19:20→19:30)
[2016-11-15] MEDS ORDERED: Magnesium Sulf 2 Gm/50mL Water 2 GM in IV Premix 1 EACH IV ONE (19:25)
[2016-11-15 20:22] VITALS: BP 139/87; PULSE 96; RESP 16; O2SAT 98
--- NOTE | 2016-11-15 20:26 | DRSVH ---
PROCEDURE: CT ANG CHEST/ABD/PEL W/WO CIBTRAST ([id number]) INDICATIONS: Chest/Abd/Back pain, severe HTN TECHNIQUE: Precontrast 5 mm thick sections acquired from the lung apices to the iliac crests. After the adminis tration of intravenous contrast, 3 mm thick sections again acquired from the lung apices to the iliac crests. 3-dimensional maximum intensity projection (MIP) oblique sagittal and coronal reformats wer e then acquired, and/or 3-dimensional volume rendering reformats. For radiation dose reduction, the following was used: automated exposure control. COMPARISON: [facility], CT, CT ANGIO CHEST PE, 06/21/2016, 18:38. [facility], CT, CT ABD PELVIS W CON, 11/07/2016, 15:41. FINDINGS: Image quality: Excellent. AORTA: No evidence aortic aneurysm, dissection, nor stenosis. 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 CHEST: Lungs and pleura: No acute airspace opacities. No change in ill-defined nodular density within the r ight apex laterally measuring 10 mm. No pleural effusions or pneumothorax. Central and peripheral a irways are patent and normal in caliber. Mediastinum: Heart size is normal. No pericardial effusion. No mediastinal or hilar adenopathy by size criteria. Central pulmonary arteries are normal in size. Esophagus is normal in caliber. No h iatal hernias. Bones and chest wall: No axillary adenopathy by size criteria. Thyroid gland is within normal limit s. No suspicious bony lesions. No vertebral body compression fractures. ABDOMEN: Vasculature: Celiac trunk and mesenteric arteries are patent. Renal arteries are also patent. 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 Liver and right-sided spleen are normal in size. No change in low density within the left hepatic lobe inferiorly spanning roughly 30 mm. Gallbladder is within normal limits. Biliary system is non dilated. Pancreas is not well-seen. As before, a 35mm diameter low density cystic focus involves the pancreatic head. No adrenal nodules. Kidneys demonstrate normal size and enhancement, without hydronephrosis. Peritoneum and bowel: Malrotation of the bowel is present, with left-sided large bowel and left-sided ligament of Treitz, as before. Status post Alina fundoplication. Stomach, and small bowel are within normal limits. No free fluid or air. Appendixnot seen. No evidence of appendicitis. Nodes and vessels: No retroperitoneal or mesenteric adenopathy by size criteria. Inferior vena cava is normal in morphology. Bones: No suspicious bony lesions. No vertebral body compression fractures. Miscellaneous: No ventral hernias. IMPRESSION: 1. No acute process. 2. 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 3. No change in indeterminate low density hepatic focus; recommend attention to this region on follow up imaging studies. 4. Appendix not seen; no evidence of appendicitis. 5. No change in low density focus involving the pancreatic head; recommend attention to this region o n followup imaging studies. Dictated by: Natty Briceno M.D. on 11/15/2016 at 20:18 Approved by: Natty Briceno M.D. on 11/15/2016 at 20:24
[2016-11-15] MEDS ORDERED: HYOS0.1297 PO (21:15)
[2016-11-15] MEDS ORDERED: PROC25SU30 RC (21:16)
[2016-11-15] MEDS ORDERED: Senna-Docusate 8.6-50 mg Tablet PO PRN (22:20)
[2016-11-15] MEDS ORDERED: 0.9% Sodium Chloride 1,000 ML IV SCH (22:20)
[2016-11-15] MEDS ORDERED: Polyethylene Glycol (PEG) 17 Gm Powder PO PRN (22:20)
[2016-11-15] MEDS ORDERED: Alum-Mag Hydrox-Simeth 30 mL Suspension PO PRN (22:25)
[2016-11-15] MEDS ORDERED: Ondansetron 2 mg/mL 2 mL Inj IVPUSH PRN (22:25)
[2016-11-15 22:31] VITALS: BP 124/76; PULSE 93; RESP 15; O2SAT 95
[2016-11-15 22:49] LABS: APPEARANCE,URINE HAZY (CLEAR,HAZY); COLOR,URINE YELLOW (YELLOW); OCCULT BLOOD,URINE NEGATIVE (NEGATIVE); UROBILINOGEN,URINE NORMAL (NORMAL)
[2016-11-15 23:39] LABS: Creatine Kinase 39 U/L (21-215)
[2016-11-15] MEDS: Sodium Chloride LOK Flush 10 mL Syringe IVFLUSH SCH (23:46)
[2016-11-15] MEDS: Heparin 5,000 Unit/mL Inj SUBQ SCH (23:53)
[2016-11-16 00:36] VITALS: BP 121/78; PULSE 82; RESP 18; O2SAT 98
--- NOTE | 2016-11-16 00:52 | NUR ---
Admit to room 3002@ 23:15 with abd pain, hypertension. VSS sat'ing 97% on RA. Alert and oriented x3, Oriented to room and poc on whiteboard. Pain 3/10 but tolerable. Non-slip socks on for safety, light in room.
--- NOTE | 2016-11-16 00:56 | PCM.HPMED ---
Subjective Date of Service Nov 15, 2016 Primary Provider: Admitting Physician: Jeanine Garcia DO Primary Care Physician: Other,Physician Attending Physician: Jeanine Garcia DO Admit Status: From the Emergency Department, Remote Telemetry Chief Complaint: Abdominal pain, chest pain History of Present Illness: Ms. Pena is a 56 year old woman with an unfortunate history of bowel malrotation, diverticulitis, partial sinus inversus, and gastric reflux secondary to a hiatal hernia s/p Alina fundoplication, who presented to [facility] ED with persistent abdominal pain, nausea, and chest pain onset at 1330 today.The abdominal pain is diffuse. The patient describes her pain as a cramping, burning pain that is as severe as labor pain. Patient reports to start taking a new medication for abdominal cramping last night, which worked really well. Today, she had another dose of that medication and it helped. She does not know the name of it. Then the patient saw her GI provider at the [facility], had lunch, and developed this severe abdominal cramping. Patient states that her pain similar to the pain that she has had in the past, except that it radiates up to the upper quadrants and also into her chest, which is also cramping in nature, and this is a new symptom for her. She reports nausea and dry heaving, which are typical associated symptoms with the abdominal pain. Since her Alina fundoplication in 08/2016, the patient has had multiple hospital visits for the abdominal pain, with the most recent one was from 11/07/- 11/11. The patient was treated for a possible small bowel obstruction, with EGD showing showing no acute problem. reports losing 17lbs over the past 2 months, due to inability to eat. She reports passing gas and having normal bowel movements, She denies bloody or tarry stools. Patient denies a personal or family history of heart disease. She denies a history of hypertension, hyperlipidemia, or diabetes mellitus. She is smoking off and on, about 3 cigarettes/day. On arrival to the ED, she was severely hypertensive, highest 193/126, and HR of 103. She does not have a prior history of hypertension. The patient thinks her blood pressure is elevated due to pain. She received a total of 2 mg Dilaudid overall with marked improvement. She also received 2 doses of metoprolol 5mg IV , and her vital signs normalized. Blood works were normal. CXR and CT abd/ pelvis were both normal. However, EKG showed striking T-wave abnormalities that was worse compared to prior EKG just several weeks ago. Trop negative x 2 as well as CK-MB. The case was discussed with the on-call hand coremaker, who recommended serial troponins and then an echo in the morning. The indication for stress test unless abnormal labs/Echo. Review of Systems: A comprehensive review of systems was conducted with the patient and found to be negative except as above in the History of Present Illness. Allergies Coded Allergies: levothyroxine sodium (Verified Allergy, Unknown, Upset stomach, nausea, ) promethazine (Verified Adverse Reaction, Severe, Extrapyramidal Symptoms, 11/15/16) HAS TOLERATED RECENTLY - INGA IN EARLY 20s droperidol (Verified Adverse Reaction, Intermediate, Agitation, 11/15/16) hydroxyzine (Verified Adverse Reaction, Intermediate, Agitation, 11/15/16) amoxicillin (Verified Adverse Reaction, Mild, STOMACH UPSET, 11/15/16) clavulanic acid (Verified Adverse Reaction, Mild, STOMACH UPSET, 11/15/16) nitrofurantoin (Verified Adverse Reaction, Unknown, Diarrhea, 11/15/16) Home Medications Scheduled Ascorbate Calcium (Vitamin C) 500 Mg Tablet 1,500 MG PO DAILY Cholecalciferol (Vitamin D3) (Vitamin D3) 2,000 Unit Tablet 4,000 UNIT PO DAILY Duloxetine (Cymbalta) 30 Mg Capsule.dr 90 MG PO DAILY Gabapentin (Gabapentin) 300 Mg Capsule 900 MG PO HS Omeprazole (Omeprazole) 20 Mg Capsule.dr 40 MG PO DAILY Thyroid,Pork (Kathryn Thyroid) 120 Mg Tablet 120 MG PO QAM Scheduled PRN Cyclobenzaprine (Cyclobenzaprine) 10 Mg Tablet 10 MG PO TID PRN PRN For Spasm Dicyclomine (Dicyclomine) 20 Mg Tablet 20 MG PO QID PRN PRN For GI Cramps Hydrocodone-Acetaminophen 10-325 mg (Hydrocodone-Acetaminophen 10-325 mg) 1 Each Tablet 1 TABLET PO Q6H PRN PRN For Pain Ondansetron ODT (Ondansetron ODT) 4 Mg Tablet 4 MG PO Q8H PRN PRN For Nausea/ Vomiting PMH 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) ho Bowel malrotation Diverticulitis Irritable bowel syndrome Possible colitis Hypothyroidism Anxiety Depression Chronic sinusitis Fibromyalgia Arthritis GERD Pancreatitis Hiatal hernia s/p repair Migraines small bowel obstruction Denies: Diabetes mellitus, Hyperlipidemia, Hypertension Surgical History Rectocele Sinus surgery Eye surgery Hernia Laproscopic Alina fundoplication Abdominoplasty Bladder suspension Reports: Appendectomy, , Hysterectomy, Tonsillectomy Family History Father type 1 DM. Mother and maternal aunt with breast CA. 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 PCP is Dr. Rosie Taylor at . Exam Vital Signs Vital Sign - Last Date Time Temp Pulse Resp B/P Pulse Ox O2 Delivery O2 Flow Rate FiO2 11/15/16 20:22 96 16 139/87 98 11/15/16 19:14 36.6 Room Air Exam General: No acute distress, well-developed, well-nourished, appropriately interactive HEENT: Normocephalic, atraumatic. External ears without defect. Pupils equal, round, and reactive to light and accommodation. Anicteric sclerae, moist conjunctivae, and no lid lag. Oropharynx free of erythema and cobble stoning with moist mucosa. Neck: Supple with full range of motion. No jugular venous distension. No bruits. No lymphadenopathy or thyromegaly. Cardiovascular: Regular rate and rhythm with no murmurs, rubs, or gallops appreciated Pulmonary: Clear to auscultation bilaterally with no crackles, wheezes, or rhonchi. Normal respiratory effort with no use of accessory muscles. Abdomen: Bowel tones present. Soft, nondistended. Diffuse tenderness to palpation, worse in the bilateral lower quadrants. No hepatosplenomegaly or masses appreciated. Extremities: No clubbing, cyanosis, edema, or lymphadenopathy appreciated. Skin: Normal temperature, turgor, and texture; no rash, ulcers, or subcutaneous nodules appreciated. Neurological: Cranial nerves grossly intact. Normal muscle strength, tone, and bulk. Reflexes, coordination, and sensory function within normal limits. No known gait impairment. Psychiatric: Normal mood and affect. Alert and oriented to person, place, and time. Lab and Diagnostics Result Diagram: 11/15/16 1745 11/15/16 174 X-Rays, CTs and MRIs PROCEDURE: X-RAY CHEST ONE VIEW, PORTABLE IMPRESSION: No acute process. Dictated by: Natty Briceno M.D. on 11/15/2016 at 18:19 Approved by: Natty Briceno M.D. on 11/15/2016 at 18:19 PROCEDURE: CT ANG CHEST/ABD/PEL W/WO CONTRAST IMPRESSION: 1. No acute process. 2. 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 3. No change in indeterminate low density hepatic focus; recommend attention to this region on followup imaging studies. 4. Appendix not seen; no evidence of appendicitis. 5. No change in low density focus involving the pancreatic head; recommend attention to this region on followup imaging studies. Dictated by: Natty Briecno M.D. on 11/15/2016 at 20:18 Approved by: Natty Briceno M.D. on 11/15/2016 at 20:24 12-lead ECG Sinus tachycardia, Rate 110 Deep T wave abnormalities and inversions in V3-V6, questionable 1, AVL, and lead 2. This is worse compared to findings present, but not as pronounced, as seen on October 30 2016. Assessment & Plan 56 year old woman with an unfortunate history of bowel malrotation, diverticulitis, partial sinus inversus, and gastric reflux secondary to a hiatal hernia s/p Alina fundoplication, who presented to [facility] ED with persistent abdominal pain, nausea, and chest pain onset at 1330 today. 1. Acute chest pain, present on admission, active. - Abnormal EKG that showed T wave abnormalities and inversions in V3-V6, which changed from previous EKG. - Trop neg x2 and CK-MB negative as well. Continue to trend. - CP improves with pain medication. EKG if chest pain recurs. - Likely GI source. Patient has no known history of CAD. - Will check Echo in the morning. - Cardiology was consulted in the ED and will see the patient in the morning. - Consider stress test if abnormal labs/Echo. - Check lipid panel, TSH+Free T4 - Start ASA 81mg and Atorvastatin 40mg. - Nitro, Morphine, and O2 PRN - Monitor Telemetry. 2. Acute on chronic abdominal pain, present on admission, active. - with associated nausea and unintentional weight loss in patient with hiatal hernia s/p Alina and history of malrotation and partial sinus inversus. - Unknown exact etiology. No signs and symptoms of bowel obstruction. Suspect secondary to uncontrolled fibromyalgia. - CT abdomen/pelvis did not reveal any changes or acute pancreatitis. Pancreatic cyst appeared the same. - Follow with GI in [place] as outpatient. - Pain control with PRN Dilaudid. 3. Acute transaminitis, present on admission, active. - Likely related to history of alcohol use. LFTs with significant fluctuation in the past. - Continue to monitor. - Avoid hepatotoxic drugs like APAP. 4. Hypertensive urgency, present on admission, resolved. - Likely secondary to uncontrolled pain. - Resolved after pain medication and Metoprolol 5mg IV x2. - Will continue to monitor BP and consider starting oral med if continues to be elevated. Chronic issues: 5. Hypothyroidism: Check TSH+Free T4 and resume home Kathryn thyroid. 6. Anxiety/Depression: resume home Duloxetine 7. Fibromyalgia: resume home Gabapentin 8. Arthritis: stable. 9. GERD: converted home Omeprazole to Protonix 40mg daily. 10. Migraines, stable. CODE STATUS: FULL. Patient Status: Patient is admitted under observation status with expected length of stay less than 2 midnights due to severity of presenting symptoms, risk of adverse event, and complexity of treatment plan. Pain Evaluation: Adequate Pain Control GI Prophylaxis: Proton Pump Inhibitor VTE Prophylaxis: Sub-Q Heparin (Unfractionated) Resuscitation Status: CPR: Attempt Resuscitation Attending Statement The patient was seen and examined together with house staff on 11/15/2016 and I agree with the history, exam and plan as outlined in the note above. Niko Browning DO Nov 15, 2016 22:26 Jeanine Garcia DO Nov 16, 2016 03:35
[2016-11-16] MEDS: HYDROmorphone 0.5 mg/0.5 mL iSecure Syringe IVPUSH PRN ×3 (01:49→11:28)
[2016-11-16 05:11] VITALS: BP 129/84; PULSE 77; RESP 18; O2SAT 97
[2016-11-16 05:14] LABS: Creatine Kinase 43 U/L (21-215)
[2016-11-16 05:23] VITALS: PULSE 80
[2016-11-16 05:48] LABS: BASOPHILS % (AUTO) 0.4 % (0-3); EOSINOPHILS % (AUTO) 2.7 % (0-5); MONOCYTES % (AUTO) 15.8 % (4-12); Mean Corpuscular Hemoglobin 33.3 pg (27.0-35.0); Mean Corpuscular Volume 99.2 fL (81-100); NEUTROPHILS % (AUTO) 44.8 % (40-74); Platelet Count 378 bil/L (150-400)
[2016-11-16] MEDS: Sodium Chloride LOK Flush 10 mL Syringe IVFLUSH SCH (07:29)
[2016-11-16] MEDS: Heparin 5,000 Unit/mL Inj SUBQ SCH (07:29)
[2016-11-16] MEDS ORDERED: Pantoprazole 40 mg ER24 Tablet PO SCH (07:30)
[2016-11-16 08:00] VITALS: PULSE 76
[2016-11-16] MEDS ORDERED: DULoxetine 30 mg DR Capsule PO SCH (08:30)
--- NOTE | 2016-11-16 08:30 | NUR ---
Social Work: Screening Data: Pt is a 56 y/o female admitted for abdominal pain, hypertension. Pt's PCP is not listed, pt's insurance is [employer]. EMR reviewed. No readmit score listed. No d/c planning needs anticipated at this time. [employer] will continue to follow if needs arise. Assessment: Pt who is independent at baseline. Plan: Pt will d/c home via POV when medically stable. No d/c planning needs anticipated at this time. [employer] SET UP OPERATOR [employer]TERNAL will continue to follow if needs arise. GLO Pa
[2016-11-16 10:24] VITALS: BP 122/77; PULSE 82; RESP 18; O2SAT 99
--- NOTE | 2016-11-16 10:55 | DRSVH ---
[facility] [address] [place] [address] Echocardiogram Report Name: AMANDO CLEMENS LStudy Date: Height: 69 in Hospital Exam Location: [facility] Weight: 128 lb Gender: Female BSA: 1.7 m2 : 1960 Age: 56 yrs BP: 129/84 mmHg Reason For Study: CHEST PAIN Ordering Physician: Performed By: Otto Ren Interpretation Summary Left ventricular wall thickness is mildly increased. There is moderate apical hypertrophy. 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 The ejection fraction is estimated to be 60-65%. There is no significant valvular heart disease. Procedure: A two-dimensional transthoracic echocardiogram with color flow and Doppler was performed. The study quality was technically adequate. There is no prior echocardiogram noted for this patient. The patient was in normal sinus rhythm during the exam. Left Ventricle: The left ventricle is normal in size. Left ventricular wall thickness is mildly increased. There is moderate apical hypertrophy. The ejection fraction is estimated to be 60-65%. Right Ventricle: The right ventricle is normal in size and function. Atria: The left atrium is mildly dilated. Right atrial size is normal. The interatrial septum is intact with no evidence for an atrial septal defect. Mitral Valve: The mitral valve is normal in structure and function. There is mild mitral annular calcification. There is trace mitral regurgitation. Aortic Valve: The aortic valve is normal in structure and function. The aortic valve is trileaflet. The aortic valve opens well. No aortic regurgitation is present. Tricuspid Valve: The tricuspid valve is normal in structure and function. No tricuspid regurgitation. Pulmonary artery pressures cannot be estimated because of the lack of a measurable TR jet velocity. Pulmonic Valve: The pulmonic valve is not well seen, but is grossly normal. There is no pulmonic valvular regurgitation. Great Vessels: The aortic root is normal size. The dimensions of the ascending aorta are normal. The pulmonary artery is normal size. The IVC is of normal diameter and collapses greater than 50% with a sniff. This suggests a low right atrial pressure of 3 mm Hg. Pericardium/ Pleura There is no pericardial effusion. There is no pleural effusion. MMode/2D Measurements & Calculations LVIDd: 4.9 cm LA dimension: 3.7 cm RA long axis Ao root diam LVIDs: 2.7 cm FS: 44.4 % LA A2 area: 19.5 cm RA area Aortic Jxn: 2.6 cm EPSS: 0.28 cm LA A4 area: 22.7 cm asc Aorta Diam IVSd: 1.2 cm LA length (vol) : 15.5 cm LVPWd: 0.99 cm RA vol Ao Arch Diam (Prox LA vol: 67.2 ml : 45.0 ml Trans): 2.7 cm LA vol index RA : 26.3 mm2 IVC diam: 0.74 cm LV funez. diameter/BSA LV sys. diameter/BSA RVD1 (basal) RVD2 (mid): 2.6 cm (cm/m^2): 2.9 (cm/m^2): 1.6 Doppler Measurements & Calculations Ao V2 max MV E max victor hugo MV E/A: 0.80 PA V2 max: 86.8 cm/sec : 137.5 cm/sec : 65.2 cm/sec Med Peak E' Victor Hugo PA mean P.8 mmHg Ao max PG MV A max victor hugo PA Accel Time: 0.15 sec : 7.6 mmHg : 81.9 cm/sec E/E' med: 12.8 Ao mean PG Lat Peak E' Victor Hugo : 5.4 mmHg E/E' lat: 10.7 E/e' average Pulm A Revs Dur MV A dur: 0.13 sec MV dec time Ao V2 mean PA V2 mean Pulm A Revs Dur - MV A : 0.15 sec : 114.0 cm/sec : 65.4 cm/sec Dur: -0.04 msec Ao V2 VTI: 30.4 Tay pr(Accel) : 5.8 mmHg Electronically signed by: Thaddeus Mcgrath on Reading Physician:11/16/2016 10:54 AM
[2016-11-16 14:24] VITALS: BP 127/67; PULSE 84; RESP 16; O2SAT 97
--- NOTE | 2016-11-16 14:53 | NUR ---
Pain control Pt. has been requiring PRN dilaudid for abdominal pain. Medications remain effective for pain management.
--- NOTE | 2016-11-16 14:59 | PCM.DIMED ---
Ulises Osei DO 11/16/16 1459: Discharge Instructions Date of Service Nov 16, 2016 Dates of Hospitalization Nov 15, 2016 at 21:20 Discharge Diagnosis Discharge Diagnosis 1. Acute chest pain 2. Acute on chronic abdominal pain 3. Acute transaminitis 4. Hypertensive urgency Chronic issues: 5. Hypothyroidism 6. Anxiety/Depression 7. Fibromyalgia 8. Arthritis 9. GERD 10. Migraines, stable. Medication Instructions Please continue taking your medications as prescribed. Please avoid taking any Opiate medications, as this may worsen your stomach pain. Diet Heart Healthy Activity No restrictions Call your provider Fever or Chills, Shortness of breath, Bleeding, Chest pain, Vomitting, Excessive diarrhea, Weakness (unilateral) Patient Instructions You are being discharged home today. Your bloodwork and echocardiogram were reassuring that your chest pain is not from a heart attack. Please return to the ER for evaluation if your pain worsens or if you develop severe nausea and vomiting. Please follow up with your PCP within 1 week You can follow up with [facility] in 1-2 weeks or follow up with your GI doctor at in 1-2 weeks also. Follow-up Provider: Abdirahman García Follow-up with PCP in: 1 week Jose G Garcia MD 11/16/16 4247: Discharge Instructions Patient Instructions please take protonix as prescribed,your pain seems to be due to acid reflux Attending's Statement The patient was seen and examined independently on 11/16/2016 and case discussed with Dr. Osei , I agree with the discharge instructions as outlined in the note above. Ulises Osei DO Nov 16, 2016 14:59 Jose G Garcia MD Nov 16, 2016 23:57
--- NOTE | 2016-11-16 15:11 | NUR ---
Social Work: Discharge Data: Pt is on day 1 of hospitalization. EMR reviewed. D/C orders are in. No d/c planning needs at this time. HAND SEWER SHOES will continue to follow if needs arise. Assessment: Pt who is independent at baseline. Plan: Pt will d/c home via POV today. No d/c planning needs at this time. [employer]ES will continue to follow if needs arise. GLO Pa
--- NOTE | 2016-11-16 16:25 | NUR ---
Discharge IV discontinued fully intact. Discharge instructions explained to patient who verbalizes understanding. All personal belongings given to patient. Patient ambulated off of floor with [employer] to friend's car.
--- NOTE | 2016-11-16 17:32 | PCM.DC.MED ---
Discharge Summary Date of Service Nov 16, 2016 Dates of Hospitalization Date of Hospital Admission Nov 15, 2016 at 21:20 Date of Discharge: Nov 16, 2016 Providers: Admitting Physician: Jeanine Garcia DO Primary Care Physician: Other,Physician Attending Physician: Jeanine Garcia DO Diagnosis at Time of Discharge Diagnosis at Time of Discharge 1. Acute chest pain 2. Acute on chronic abdominal pain 3. Acute transaminitis 4. Hypertensive urgency Chronic issues: 5. Hypothyroidism 6. Anxiety/Depression 7. Fibromyalgia 8. Arthritis 9. GERD 10. Migraines, stable. Consultations case discussed with her surgeon Dr Gatica over the phone Procedures XRay, CTs & MRIs PROCEDURE: X-RAY CHEST ONE VIEW, PORTABLE IMPRESSION: No acute process. Dictated by: Natty Briceno M.D. on 11/15/2016 at 18:19 Approved by: Natty Briceno M.D. on 11/15/2016 at 18:19 PROCEDURE: CT ANG CHEST/ABD/PEL W/WO CONTRAST IMPRESSION: 1. No acute process. 2. 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 3. No change in indeterminate low density hepatic focus; recommend attention to this region on followup imaging studies. 4. Appendix not seen; no evidence of appendicitis. 5. No change in low density focus involving the pancreatic head; recommend attention to this region on followup imaging studies. Dictated by: Natty Briceno M.D. on 11/15/2016 at 20:18 Approved by: Natty Briceno M.D. on 11/15/2016 at 20:24 ECG 12 Lead Sinus tachycardia, Rate 110 Deep T wave abnormalities and inversions in V3-V6, questionable 1, AVL, and lead 2. This is worse compared to findings present, but not as pronounced, as seen on October 30 2016. Cardiac Echo Impression Interpretation Summary Left ventricular wall thickness is mildly increased. There is moderate apical hypertrophy. 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 The ejection fraction is estimated to be 60-65%. There is no significant valvular heart disease. Brief History per HPI Ms. Pena is a 56 year old woman with an unfortunate history of bowel malrotation, diverticulitis, partial sinus inversus, and gastric reflux secondary to a hiatal hernia s/p Alina fundoplication, who presented to [facility] ED with persistent abdominal pain, nausea, and chest pain onset at 1330 today.The abdominal pain is diffuse. The patient describes her pain as a cramping, burning pain that is as severe as labor pain. Patient reports to start taking a new medication for abdominal cramping last night, which worked really well. Today, she had another dose of that medication and it helped. She does not know the name of it. Then the patient saw her GI provider at the [facility], had lunch, and developed this severe abdominal cramping. Patient states that her pain similar to the pain that she has had in the past, except that it radiates up to the upper quadrants and also into her chest, which is also cramping in nature, and this is a new symptom for her. She reports nausea and dry heaving, which are typical associated symptoms with the abdominal pain. Since her Alina fundoplication in 08/2016, the patient has had multiple hospital visits for the abdominal pain, with the most recent one was from 11/07/- 11/11. The patient was treated for a possible small bowel obstruction, with EGD showing showing no acute problem. reports losing 17lbs over the past 2 months, due to inability to eat. She reports passing gas and having normal bowel movements, She denies bloody or tarry stools. Patient denies a personal or family history of heart disease. She denies a history of hypertension, hyperlipidemia, or diabetes mellitus. She is smoking off and on, about 3 cigarettes/day. On arrival to the ED, she was severely hypertensive, highest 193/126, and HR of 103. She does not have a prior history of hypertension. The patient thinks her blood pressure is elevated due to pain. She received a total of 2 mg Dilaudid overall with marked improvement. She also received 2 doses of metoprolol 5mg IV , and her vital signs normalized. Blood works were normal. CXR and CT abd/ pelvis were both normal. However, EKG showed striking T-wave abnormalities that was worse compared to prior EKG just several weeks ago. Trop negative x 2 as well as CK-MB. The case was discussed with the on-call gyroscope repairer, who recommended serial troponins and then an echo in the morning. The (no) indication for stress test unless abnormal labs/Echo. Hospital Course 56 year old woman with an unfortunate history of bowel malrotation, diverticulitis, partial sinus inversus, and gastric reflux secondary to a hiatal hernia s/p Alina fundoplication, who presented to [facility] ED with persistent abdominal pain, nausea, and chest pain onset at 1330 today. 1. Acute chest pain, present on admission, active. -Resolved -likely abdominal pain due to GERD ,c/e PPi - Abnormal EKG that showed T wave abnormalities and inversions in V3-V6, which changed from previous EKG. - Trop neg x2 and CK-MB negative as well. - CP improved with pain medication. - Likely GI source. Patient has no known history of CAD. - Echo results as above - lipid panel WNL and TSH+Free T4 WNL -- Monitor Telemetry - Stable overnight 2. Acute on chronic abdominal pain, present on admission, active. - Improved - with associated nausea and unintentional weight loss in patient with hiatal hernia s/p Alina and history of malrotation and partial situs inversus. - Unknown exact etiology. No signs and symptoms of bowel obstruction. Suspect secondary to uncontrolled fibromyalgia. - CT abdomen/pelvis did not reveal any changes or acute pancreatitis. Pancreatic cyst appeared the same. - Follow with GI in [place] as outpatient. - Pain control with PRN Dilaudid. 3. Acute transaminitis, present on admission, active. - Stable - Likely related to history of alcohol use. LFTs with significant fluctuation in the past. - Avoid hepatotoxic drugs like APAP. 4. Hypertensive urgency, present on admission,- resolved. - Likely secondary to uncontrolled pain. - Resolved after pain medication and Metoprolol 5mg IV x2. - Will continue to monitor BP and consider starting oral med if continues to be elevated. Chronic issues: 5. Hypothyroidism: 6. Anxiety/Depression: Resume home meds 7. Fibromyalgia: resume home Gabapentin 8. Arthritis: stable. 9. GERD: converted home Omeprazole to Protonix 40mg daily. 10. Migraines, stable. condition on discharge stable Exam Vital Signs (Last) Date Time Temp Pulse Resp B/P Pulse Ox O2 Delivery O2 Flow Rate FiO2 11/16/16 14:24 36.8 84 16 127/67 97 Room Air Exam General: No acute distress, well-developed, well-nourished, appropriately interactive HEENT: Normocephalic, atraumatic. External ears without defect. Pupils equal, round, and reactive to light and accommodation. Anicteric sclerae, moist conjunctivae, and no lid lag. Oropharynx free of erythema and cobble stoning with moist mucosa. Neck: Supple with full range of motion. No jugular venous distension. Cardiovascular: Regular rate and rhythm with no murmurs, rubs, or gallops appreciated Pulmonary: Clear to auscultation bilaterally with no crackles, wheezes, or rhonchi. Normal respiratory effort with no use of accessory muscles. Abdomen: Bowel tones present. Soft, nondistended. Nontender this morning, hyperactive BS noted Extremities: No clubbing, cyanosis, edema, or lymphadenopathy appreciated. Skin: Normal temperature, turgor, and texture; no rash, ulcers, or subcutaneous nodules appreciated. Neurological: Cranial nerves grossly intact. Normal muscle strength, tone, and bulk. Reflexes, coordination, and sensory function within normal limits. Psychiatric: Normal mood and affect. Alert and oriented to person, place, and time. Test 11/15/16 17:45 11/15/16 22:30 11/16/16 04:20 11/16/16 05:03 Lipase 5U/L (13-60) Urine Color Yellow (YELLOW) Urine Appearance Hazy (CLEAR,HAZY) Urine pH 8.0 (5.0-8.0) Urine Specific [place] 1.010 (1.003-1.035) Urine Protein Negativemg/dL (NEG,TRACE) Urine Glucose (UA) Negativemg/dL (NEGATIVE) Urine Ketones Tracemg/dL (NEGATIVE) Urine Occult Blood Negative (NEGATIVE) Urine Nitrite Negative (NEGATIVE) Urine Bilirubin Negative (NEGATIVE) Urine Urobilinogen Normalmg/dL (NORMAL) Urine Leukocyte Esterase Negative (NEGATIVE) Urine RBC 0-2/hpf (0-2) Urine WBC 0-5/hpf (0-5) Urine Epithelial Cells Few/hpf (NONE-MOD) Urine Crystals None seen (NONE SEEN) Urine Bacteria Few/hpf (NONE-FEW) Urine Hyaline Casts None/lpf (NONE) Urine Granular Casts None seen (NONE SEEN) Urine Waxy Casts None seen (NONE SEEN) Urine Red Blood Cell Casts None seen (NONE SEEN) Urine White Blood Cell Casts None seen (NONE SEEN) Urine Mucus None seen (None Seen) Urine Trichomonas None seen (NONE SEEN) Urine Yeast None (NONE SEEN) Urinalysis Comment None Urine Culture Reflexed Not indicated Total Creatine Kinase 43U/L (21-215) Creatine Kinase MB 4.1ng/mL (0.0-5.3) Creatine Kinase MB % % (0.0-5.0) Troponin T 0.010ug/L (0.0-0.011) Triglycerides Level 93mg/dL (0-149) Cholesterol Level 136mg/dL (100-199) LDL Cholesterol, Calculated 32.400mg/dL (0-99) VLDL Cholesterol 18.600mg/dL HDL Cholesterol 85mg/dL (>39) Cholesterol/HDL Ratio 1.60 (0.0-4.4) White Blood Count 5.5th/mm3 (3.8-10.1) Red Blood Count 3.90mil/mm3 (3.90-5.20) Hemoglobin 13.0g/dL (12.0-15.6) Hematocrit 38.7% (35.0-46.0) Mean Corpuscular Volume 99.2fL (81-100) Mean Corpuscular Hemoglobin 33.3pg (27.0-35.0) Mean Corpuscular Hemoglobin Concent 33.6% (32.0-37.0) Red Cell Distribution Width 13.7% (12.3-15.4) Platelet Count 378bil/L (150-400) Neutrophils (%) (Auto) 44.8% (40-74) Lymphocytes (%) (Auto) 36.1% (14-46) Monocytes (%) (Auto) 15.8% (4-12) Eosinophils (%) (Auto) 2.7% (0-5) Basophils (%) (Auto) 0.4% (0-3) Sodium Level 136mEq/L (134-144) Potassium Level 3.8mEq/L (3.5-5.2) Chloride Level 98mEq/L (97-108) Carbon Dioxide Level 24mmol/L (18-29) Blood Urea Nitrogen 3mg/dL (6-24) Creatinine 0.41mg/dL (0.57-1.00) Estimat Glomerular Filtration Rate 232mL/min (>59) Glucose Level 118mg/dL (60-99) Calcium Level 9.6mg/dL (8.5-10.1) Magnesium Level 1.9mg/dL (1.6-2.6) Total Bilirubin 0.5mg/dL (0.0-1.2) Aspartate Amino Transf (AST/SGOT) 42U/L (0-50) Alanine Aminotransferase (ALT/SGPT) 25U/L (0-32) Alkaline Phosphatase 120U/L (25-150) Total Protein 6.6g/dL (6.4-8.4) Albumin 3.6g/dL (3.4-5.0) Thyroid Stimulating Hormone (TSH) 0.456uIU/mL (0.450-4.500) Free Thyroxine 0.87ng/dL (0.82-1.77) Acetaminophen Level 15.0ug/mL Rx (10-25) Test 11/16/16 08:00 Lactic Acid Level 1.0mmol/L (0.4-2.0) Discharge Medications Discharge Medications Ascorbate Calcium (Vitamin C) 500 Mg Tablet 1,500 MG PO DAILY (Reported) Cholecalciferol (Vitamin D3) (Vitamin D3) 2,000 Unit Tablet 4,000 UNIT PO DAILY (Reported) Duloxetine (Cymbalta) 30 Mg Capsule.dr 90 MG PO DAILY (Reported) Gabapentin (Gabapentin) 300 Mg Capsule 900 MG PO HS (Reported) Omeprazole (Omeprazole) 20 Mg Capsule.dr 40 MG PO DAILY (Reported) Thyroid,Pork ([place] Thyroid) 120 Mg Tablet 120 MG PO QAM (Reported) As needed Cyclobenzaprine (Cyclobenzaprine) 10 Mg Tablet 10 MG PO TID PRN PRN For Spasm ( Reported) Dicyclomine (Dicyclomine) 20 Mg Tablet 20 MG PO QID PRN PRN For GI Cramps Prescribed by: LORETA BAKER, DO Hyoscyamine Liquid (Hyoscyamine Liquid) 0.125 Mg/1 Ml Drops 0.125 ML PO QID PRN PRN abdominal cramping (Reported) Ondansetron ODT (Ondansetron ODT) 4 Mg Tablet 4 MG PO Q8H PRN PRN For Nausea/ Vomiting Prescribed by: YESI FOOTE, Prochlorperazine Maleate (Compazine Suppository) 25 Mg Supp.rect 25 MG RC DIRECTED PRN PRN For Nausea (Reported) Additional med instructions Please continue taking your medications as prescribed. Please avoid taking any Opiate medications, as this may worsen your stomach pain. Followup Plan Disposition: Home Discharge Diet: Heart Healthy Discharge Activity: No restrictions Patient Instructions You are being discharged home today. Your bloodwork and echocardiogram were reassuring that your chest pain is not from a heart attack. Please return to the ER for evaluation if your pain worsens or if you develop severe nausea and vomiting. Please follow up with your PCP within 1 week You can follow up with [facility] in 1-2 weeks or follow up with your GI doctor at in 1-2 weeks also. Follow-up Provider: Abdirahman García Follow-up with PCP in: 1 week Attending Statement The patient was seen and examined independently on 11/16/2016 and case discussed with Dr. Osei , I agree with the discharge summary as outlined in the note above. copies to: Abdirahman García Hong D DO Nov 16, 2016 17:32 Jose G Garcia MD Nov 17, 2016 00:00
[2016-11-17] MEDS ORDERED: OXYC1TAB24 PO (15:56)
== END 2016-11-16 16:41 | disposition home or self-care (01) ==
LOC: SED 17:19 → MPC 21:20 → INTOOBSV 21:20 → OBSVTOIN 21:20 → MPC 22:47
PROVIDERS: ADMIT Internal Medicine; ATTEND Internal Medicine
DX: R07.9 Chest pain, unspecified (principal); R10.30 Lower abdominal pain, unspecified; G89.29 Other chronic pain; R74.0 Nonspecific elevation of levels of transaminase and lactic acid dehydrogenase [LDH]; I16.0 Hypertensive urgency; F17.210 Nicotine dependence, cigarettes, uncomplicated; R11.0 Nausea; Q43.3 Congenital malformations of intestinal fixation; K21.9 Gastro-esophageal reflux disease without esophagitis; E03.9 Hypothyroidism, unspecified; M79.7 Fibromyalgia; F32.9 Major depressive disorder, single episode, unspecified; F41.9 Anxiety disorder, unspecified
CPT/HCPCS: 36415; 71010; 71275; 74174; 80053; 80061; 81000; 82550; 82553; 83605; 83690; 83735; 84439; 84443; 84484; 85025; 93005; 96374; 96375; 96376; 99285; C8929; G0378; G0480; J1170; J1644; J2405; J7030; Q9967

== ENCOUNTER 2016-11-17 14:00 | Emergency (ER) | payer OTHER ==
[~2016-11-17] VITALS: Ht 175.3 cm; Wt 59.0 kg
[~2016-11-17 14:00] MED LIST changes: -HYDR-3740 PO; +HYOS0.1297 PO; +PROC25SU30 RC
[2016-11-17 14:06] VITALS: BP 195/128; PULSE 83; RESP 15; O2SAT 99
--- NOTE | 2016-11-17 14:15 | ED.REPORT ---
HPI-Chest Pain 40 and Over Date of Service Nov 17, 2016 ED Provider: Philly Disla MD Pt is a 56 y.o. female with a hx of bowel malrotation, diverticulitis, partial sinus inversus, and gastric reflux secondary to a hiatal hernia s/p Alina fundoplication who presents to the ED via EMS c/o substernal chest pain rated at an 8 onset this morning. Pt states that she woke up to chest pain and abdominal pain (chronic). Pt reports that the EMS ride made her even more uncomfortable due to the "jerking" movements. She reports associated nausea and vomiting. She was recently admitted (11/15/16-11/16/16) for abdominal pain and a cardiac work-up secondary to an abnormal EKG. While admitted pt underwent serial enzyme tests and an echocardiogram, both were normal. Nursing Notes Stated Complaint: CHEST PAIN Chief Complaint: Chest Pain Nursing Notes Reviewed: Yes Allergies: Coded Allergies: levothyroxine sodium (Verified Allergy, Unknown, Upset stomach, nausea, ) promethazine (Verified Adverse Reaction, Severe, Extrapyramidal Symptoms, 11/15/16) HAS TOLERATED RECENTLY - INGA IN EARLY 20s droperidol (Verified Adverse Reaction, Intermediate, Agitation, 11/15/16) hydroxyzine (Verified Adverse Reaction, Intermediate, Agitation, 11/15/16) amoxicillin (Verified Adverse Reaction, Mild, STOMACH UPSET, 11/15/16) clavulanic acid (Verified Adverse Reaction, Mild, STOMACH UPSET, 11/15/16) nitrofurantoin (Verified Adverse Reaction, Unknown, Diarrhea, 11/15/16) Scheduled Ascorbate Calcium (Vitamin C) 500 Mg Tablet 1,500 MG PO DAILY Cholecalciferol (Vitamin D3) (Vitamin D3) 2,000 Unit Tablet 4,000 UNIT PO DAILY Duloxetine (Cymbalta) 30 Mg Capsule.dr 90 MG PO DAILY Gabapentin (Gabapentin) 300 Mg Capsule 900 MG PO HS Omeprazole (Omeprazole) 20 Mg Capsule.dr 40 MG PO DAILY Thyroid,Pork ([place] Thyroid) 120 Mg Tablet 120 MG PO QAM Scheduled PRN Cyclobenzaprine (Cyclobenzaprine) 10 Mg Tablet 10 MG PO TID PRN PRN For Spasm Dicyclomine (Dicyclomine) 20 Mg Tablet 20 MG PO QID PRN PRN For GI Cramps Hyoscyamine Liquid (Hyoscyamine Liquid) 0.125 Mg/1 Ml Drops 0.125 ML PO QID PRN PRN abdominal cramping Ondansetron ODT (Ondansetron ODT) 4 Mg Tablet 4 MG PO Q8H PRN PRN For Nausea/ Vomiting Prochlorperazine Maleate (Compazine Suppository) 25 Mg Supp.rect 25 MG RC DIRECTED PRN PRN For Nausea General Time Seen by MD: 14:15 Chief Complaint Chest pain Hx Obtained From: Patient Arrived By: Ambulance Sudden in Onset?: Yes Onset Occurred: 5 - 8 hours ago Symptom Duration: Since onset Location: : Epigastric: Substernal Quality: Painful Severity: Current: Pain level 8 out of 10 Severity: Maximum: Severe Recent Healthcare: Recent hospitalization Past Medical History Past Medical History 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) ho Bowel malrotation Diverticulitis Irritable bowel syndrome Possible colitis Hypothyroidism Anxiety Depression Chronic sinusitis Fibromyalgia Arthritis GERD Pancreatitis Hiatal hernia s/p repair Migraines small bowel obstruction Past Surgical History Rectocele Sinus surgery Eye surgery Hernia Laproscopic Alina fundoplication Abdominoplasty Bladder suspension Reports: Appendectomy, , Hysterectomy, Tonsillectomy Family History Father type 1 DM Smoking History Former Smoker Social History Lives with her spouse on [address], 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 Physical Exam Initial Vital Signs Vital Signs (First) Date Time Temp Pulse Resp B/P Pulse Ox O2 Delivery O2 Flow Rate FiO2 11/17/16 14:06 36.6 83 15 195/128 99 11/17/16 14:17 Room Air Initial VS: Reviewed Head / Eyes: Atraumatic, Normocephalic Extremities: Vascular intact, Neuro intact Neurologic: Alert, Oriented, Nonfocal Psychiatric: Mood/affect normal, Behavior normal, Normal thought content General/Constitutional: Awake, Alert, Well appearing, Well developed, Well hydrated, Well nourished, Not toxic appearing Respiratory / Chest: Atraumatic, Breath sounds NL, Breath sounds = bilat, No respiratory distress, No wheezing Cardiovascular: Heart rate NL, Regular rhythm, Heart sounds NL, No murmurs, Peripheral circulation NL Hypertensive Abdomen: Atraumatic, Soft, No guarding, No rebound, BS normoactive, No distention Tenderness/Guarding/Rebound: Positive: Tender diffuse Pt complains about peritoneal signs Skin: Atraumatic, Color NL, No rash, Warm, Dry, Intact Well perfused Interpretation & Diagnostics Lab Results Interpretation Result Diagram: 11/17/16 1415 11/17/16 1415 Test 11/17/16 14:15 White Blood Count 5.8th/mm3 (3.8-10.1) Red Blood Count 4.09mil/mm3 (3.90-5.20) Hemoglobin 13.4g/dL (12.0-15.6) Hematocrit 40.1% (35.0-46.0) Mean Corpuscular Volume 98.0fL (81-100) Mean Corpuscular Hemoglobin 32.8pg (27.0-35.0) Mean Corpuscular Hemoglobin Concent 33.4% (32.0-37.0) Red Cell Distribution Width 13.2% (12.3-15.4) Platelet Count 406bil/L (150-400) Neutrophils (%) (Auto) 70.0% (40-74) Lymphocytes (%) (Auto) 17.8% (14-46) Monocytes (%) (Auto) 11.2% (4-12) Eosinophils (%) (Auto) 0.5% (0-5) Basophils (%) (Auto) 0.3% (0-3) Sodium Level 137mEq/L (134-144) Potassium Level 4.7mEq/L (3.5-5.2) Chloride Level 98mEq/L (97-108) Carbon Dioxide Level 24mmol/L (18-29) Blood Urea Nitrogen 4mg/dL (6-24) Creatinine 0.34mg/dL (0.57-1.00) Estimat Glomerular Filtration Rate 287mL/min (>59) Glucose Level 152mg/dL (60-99) Calcium Level 10.0mg/dL (8.5-10.1) Magnesium Level 1.6mg/dL (1.6-2.6) Total Bilirubin 0.3mg/dL (0.0-1.2) Aspartate Amino Transf (AST/SGOT) 56U/L (0-50) Alanine Aminotransferase (ALT/SGPT) 30U/L (0-32) Alkaline Phosphatase 126U/L (25-150) Troponin T < 0.010ug/L (0.0-0.011) Total Protein 7.4g/dL (6.4-8.4) Albumin 3.8g/dL (3.4-5.0) Hold Singh Top Tube Received (Received) ECG Interpretation ECG Interpretation: Atrial premature complexes Probable left atrial enlargement LVH with repol abnormalities, more pronounced compared to 11/15/16 Time: 14:19 Interpreted by: ED physician Normal ECG Interpretation: Normal rate (79), Normal sinus rhythm ECG Interpretation: Similar to prior ECG. Repolarization chagnes are less with BP in normal range. Time: 15:16 Interpreted by: ED physician Normal ECG Interpretation: Normal rate (80), Normal sinus rhythm X-Ray Chest Interpretation Chest Xray Interpretation: IMPRESSION: No acute cardiopulmonary disease. Dictated by: Onel Willis M.D. on 11/17/2016 at 14:32 Approved by: Onel Willis M.D. on 11/17/2016 at 14:33 Re-Eval/Medical Decision Med Decision/Clinical Course 56-year-old woman presents with severe abdominal pain resulting chest pain and significant hypertension. She has hypertrophic repolarization changes on her EKG that are more pronounced with the severely elevated blood pressures. She was discharged less than 24 hours ago after being admitted for similar findings. Cardiac workup at that time does not suggest any acute coronary disease. Recommendation was to follow-up with gastroenterology. She does have options to follow-up with Dr. Khoa serna in [place]. She also has physicians at the [facility]. She has a new provider appointment scheduled on November 20. She has a pain clinic appointment scheduled in 2 weeks. With a single milligram of IV Dilaudid in the emergency department her pain was dramatically lessened and her initial blood pressure of 197/112 is now down to 118/72. While she recognizes that acute narcotics are not the answer for her chronic pain issues at this point treating the acute pain that she is having while she is completing the additional workup reestablishing care with primary care pain clinic and gastroenterology may be the only option to keep her out of the hospital with the severe pain causing the significant chest pain. Long discussion regarding that. We also discussed the possibility of using Suboxone through chronic pain management as an option for pain control. She will discuss that further with her new physicians. In the meantime I will be sending her home with #20 Percocet to use for acute severe pain to prevent needing to come to the emergency department. She does understand that this is for acute symptoms and will not be part of a chronic management pain program for her Source of Hx: Old records Time of Eval: 15:07 Re-Evaluation/Progress Note: Pt rechecked. Pt's blood pressure came down with pain control before beta-blockers were administered. Will repeat EKG. Counseled Regarding: Diagnosis, Lab results, Need for admission Discharge & Departure Primary Impression: Hypertensive emergency Additional Impressions: Chest pain Chronic abdominal pain Disposition: Home Discharge Condition All VS Reviewed: Yes Condition: Improved Additional Instructions: you came in with similar symptoms T or hospital admission. Severe abdominal pain dramatically elevated blood pressure with associated EKG findings. you did have a full cardiac workup that was completed less than 24 hours ago suggesting no acute ischemic disease With a dose of IV narcotics here, pain was controlled and your blood pressure came down to normal levels. No additional hypertensive medications or cardiac intervention was required you have appointments with new primary care, gastroenterology, pain clinical documentation improvement specialist all scheduled in the next days to weeks. I am giving you #20 Percocet to use for severe pain to prevent the need to return to the emergency department for pain control. We have discussed the fact that this is not going to be your chronic pain management you fully recognizes the difficulties in continued and recurrent narcotic use. I wish you well in sorting out all of these details with your new providers Referrals: OTHER,PHYSICIAN (PCP) (Family) Scribe Attestation Portions of this note were transcribed by Jo Suggs. I, Dr. Disla personally performed the history, physical exam and medical decision-making; I reviewed and confirmed the accuracy of the information in the transcribed note. Signed by: Debra Bergman, 11/17/16 and 1520 copies to: Nura Couch MD, Shawna L MD Nov 17, 2016 14:15 JO SUGGS Nov 17, 2016 14:25
[2016-11-17 14:17] VITALS: BP 191/129; PULSE 78; RESP 16; O2SAT 99
[2016-11-17 14:33] LABS: BASOPHILS % (AUTO) 0.3 % (0-3); EOSINOPHILS % (AUTO) 0.5 % (0-5); MONOCYTES % (AUTO) 11.2 % (4-12); Mean Corpuscular Hemoglobin 32.8 pg (27.0-35.0); Platelet Count 406 bil/L (150-400)
--- NOTE | 2016-11-17 14:34 | DRSVH ---
PROCEDURE: X-RAY CHEST ONE VIEW, PORTABLE ([id number]) INDICATIONS: 56-year-old female with chest pain. TECHNIQUE: One view of the chest was acquired. COMPARISON: [facility], CR, XR CHEST 1VW (PORTABLE), 11/15/2016, 17:41. [facility], CR, XR CHEST 1VW (PORTABLE), 10/30/2016, 20:57. [facility], CR, XR ABD ACUTE SERI ES 3VW, 10/11/2016, 23:03. FINDINGS: Surgical changes and devices: None. Lungs and pleura: No pleural effusions or pneumothorax. Lungs are clear. Mediastinum: Mediastinal contours appear normal. Heart size is normal. Bones and chest wall: No suspicious bony lesions. Small enchondroma in the proximal right humerus i s unchanged. Overlying soft tissues appear unremarkable. IMPRESSION: No acute cardiopulmonary disease. Dictated by: Onel Willis M.D. on 11/17/2016 at 14:32 Approved by: Onel Willis M.D. on 11/17/2016 at 14:33
[2016-11-17] MEDS ORDERED: Labetalol 5 mg/mL 4 mL Inj IVPUSH ONE ×4 (14:35)
[2016-11-17] MEDS ORDERED: Ondansetron 2 mg/mL 2 mL Inj IVPUSH ONE (14:35)
[2016-11-17] MEDS ORDERED: HYDROmorphone 1 mg/mL Inj IVPUSH ONE ×2 (14:35)
[2016-11-17] MEDS ORDERED: Esmolol 2,500 mg/250 mL NS 2,500,000 MCG in IV Premix 1 EACH IV SCH (14:43)
[2016-11-17] MEDS ORDERED: Esmolol 10,000 mCg/mL 10 mL Inj IVPUSH ONE (14:45)
[2016-11-17 14:47] VITALS: BP 163/118; PULSE 84; RESP 15; O2SAT 95
[2016-11-17 14:51] LABS: TROPONIN T < 0.010 ug/L (0.0-0.011)
[2016-11-17 15:01] LABS: Magnesium 1.6 mg/dL (1.6-2.6)
[2016-11-17 15:10] VITALS: BP 127/93; PULSE 83; RESP 16; O2SAT 97
[2016-11-17 15:31] VITALS: BP 117/82; PULSE 87; RESP 16; O2SAT 96
[2016-11-17] MEDS ORDERED: OXYC1TAB24 PO (15:56)
[2016-11-17 16:04] VITALS: BP 117/82; PULSE 87; RESP 16; O2SAT 96
== END 2016-11-17 16:05 | disposition home or self-care (01) ==
LOC: SED 14:00
DX: I10 Essential (primary) hypertension (principal); R07.9 Chest pain, unspecified; R10.9 Unspecified abdominal pain; K21.9 Gastro-esophageal reflux disease without esophagitis; Z87.891 Personal history of nicotine dependence; Z88.1 Allergy status to other antibiotic agents; Z88.8 Allergy status to other drugs, medicaments and biological substances
CPT/HCPCS: 36415; 71010; 80053; 83735; 84484; 85025; 93005; 96361; 96374; 96375; 99285; J1170; J2405

== ENCOUNTER 2016-11-28 18:03 | Emergency (ER) | payer OTHER ==
[~2016-11-28] VITALS: Ht 175.3 cm; Wt 59.1 kg
[~2016-11-28 18:03] MED LIST changes: +OXYC1TAB24 PO
[2016-11-28 18:51] VITALS: BP 183/102; PULSE 107; RESP 20; O2SAT 100
[2016-11-28 19:35] LABS: BASOPHILS % (AUTO) 0.3 % (0-3); EOSINOPHILS % (AUTO) 1.6 % (0-5); Mean Corpuscular Hemoglobin 33.2 pg (27.0-35.0); Mean Corpuscular Volume 96.4 fL (81-100); NEUTROPHILS % (AUTO) 69.8 % (40-74); Platelet Count 269 bil/L (150-400)
[2016-11-28] MEDS ORDERED: Ondansetron 2 mg/mL 2 mL Inj ONE (19:47)
[2016-11-28 19:55] LABS: Magnesium 1.6 mg/dL (1.6-2.6)
--- NOTE | 2016-11-28 21:31 | ED.REPORT ---
HPI-Abd Pain F 40 and Over Date of Service Nov 28, 2016 ED Provider: Dr. White A 56 year old female presents to the ED complaining of terrible nausea and stomach cramps. She had hiatal hernia surgery performed 9 weeks ago and has not been able to vomit since the operation. She reports chest pain from dry heaving and reports that her stomach is full of gas. She also has rash on right arm. Nursing Notes Stated Complaint: STOMACH PAIN, NAUSEA,CHEST PAIN Chief Complaint: Female Abdominal Pain Nursing Notes Reviewed: Yes Allergies: Coded Allergies: levothyroxine sodium (Verified Allergy, Unknown, Upset stomach, nausea, 08/04) promethazine (Verified Adverse Reaction, Severe, Extrapyramidal Symptoms, 11/28/16) HAS TOLERATED RECENTLY - INGA IN EARLY 20s droperidol (Verified Adverse Reaction, Intermediate, Agitation, 11/28/16) hydroxyzine (Verified Adverse Reaction, Intermediate, Agitation, 11/28/16) amoxicillin (Verified Adverse Reaction, Mild, STOMACH UPSET, 11/28/16) clavulanic acid (Verified Adverse Reaction, Mild, STOMACH UPSET, 11/28/16) nitrofurantoin (Verified Adverse Reaction, Unknown, Diarrhea, 11/28/16) Scheduled Ascorbate Calcium (Vitamin C) 500 Mg Tablet 1,500 MG PO DAILY Cholecalciferol (Vitamin D3) (Vitamin D3) 2,000 Unit Tablet 4,000 UNIT PO DAILY Duloxetine (Cymbalta) 30 Mg Capsule.dr 90 MG PO DAILY Gabapentin (Gabapentin) 300 Mg Capsule 900 MG PO HS Omeprazole (Omeprazole) 20 Mg Capsule.dr 40 MG PO DAILY Thyroid,Pork ([place] Thyroid) 120 Mg Tablet 120 MG PO QAM Scheduled PRN Cyclobenzaprine (Cyclobenzaprine) 10 Mg Tablet 10 MG PO TID PRN PRN For Spasm Dicyclomine (Dicyclomine) 20 Mg Tablet 20 MG PO QID PRN PRN For GI Cramps Hyoscyamine Liquid (Hyoscyamine Liquid) 0.125 Mg/1 Ml Drops 0.125 ML PO QID PRN PRN abdominal cramping Ondansetron ODT (Ondansetron ODT) 4 Mg Tablet 4 MG PO Q8H PRN PRN For Nausea/ Vomiting Prochlorperazine Maleate (Compazine Suppository) 25 Mg Supp.rect 25 MG RC DIRECTED PRN PRN For Nausea oxyCODONE-Acetaminophen 5-325 mg (oxyCODONE-Acetaminophen 5-325 mg) 1 Each Tablet 1-2 TAB PO Q6H PRN PRN For Pain General Time Seen by MD: 21:31 Chief Complaint Nausea Hx Obtained From: Patient Arrived By: Walk-in Sudden in Onset?: No Onset Occurred: More than a week ago... 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 Patient repeorts that symptoms were relieved with a shot at last ED visit. Past Surgical History Hiatal hernia surgery performed [address] 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 Skin: Reports Rash (right arm) Physical Exam Vital Signs Vital Signs (First) Date Time Temp Pulse Resp B/P Pulse Ox O2 Delivery O2 Flow Rate FiO2 11/28/16 18:51 36.0 107 20 183/102 100 Room Air Initial VS: Reviewed General/Constitutional: Awake, Alert Respiratory / Chest: Atraumatic, Breath sounds NL, Breath sounds = bilat, No respiratory distress, No rales, No rhonchi, No wheezing Cardiovascular: Heart rate NL, Regular rhythm, Heart sounds NL, No gallop, No murmurs, No rubs Tenderness/Guarding/Rebound: Positive: Tender diffuse Hyperactive bowel sounds. Back: Atraumatic, Full range of motion Head / Eyes: Atraumatic, Normocephalic, PERRL, EOMI ENT: Atraumatic, Airway patent Skin: Warm, Dry Neurologic: Oriented X3, Speech NL Upper Extremity / MS: No edema Interpretation & Diagnostics Lab Results Interpretation Result Diagram: 11/28/16192411/28/161924 Test 11/28/16 19:25 11/28/16 23:15 11/29/16 01:56 White Blood Count 5.8th/mm3 (3.8-10.1) Red Blood Count 4.19mil/mm3 (3.90-5.20) Hemoglobin 13.9g/dL (12.0-15.6) Hematocrit 40.4% (35.0-46.0) Mean Corpuscular Volume 96.4fL (81-100) Mean Corpuscular Hemoglobin 33.2pg (27.0-35.0) Mean Corpuscular Hemoglobin Concent 34.4% (32.0-37.0) Red Cell Distribution Width 12.4% (12.3-15.4) Platelet Count 269bil/L (150-400) Neutrophils (%) (Auto) 69.8% (40-74) Lymphocytes (%) (Auto) 19.3% (14-46) Monocytes (%) (Auto) 9.0% (4-12) Eosinophils (%) (Auto) 1.6% (0-5) Basophils (%) (Auto) 0.3% (0-3) Sodium Level 130mEq/L (134-144) Potassium Level 3.9mEq/L (3.5-5.2) Chloride Level 94mEq/L (97-108) Carbon Dioxide Level 19mmol/L (18-29) Blood Urea Nitrogen 5mg/dL (6-24) Creatinine 0.32mg/dL (0.57-1.00) Estimat Glomerular Filtration Rate 308mL/min (>59) Glucose Level 130mg/dL (60-99) Calcium Level 9.3mg/dL (8.5-10.1) Magnesium Level 1.6mg/dL (1.6-2.6) Total Bilirubin 0.3mg/dL (0.0-1.2) Aspartate Amino Transf (AST/SGOT) 74U/L (0-50) Alanine Aminotransferase (ALT/SGPT) 34U/L (0-32) Alkaline Phosphatase 145U/L (25-150) Total Protein 7.4g/dL (6.4-8.4) Albumin 4.0g/dL (3.4-5.0) Lipase 5U/L (13-60) Hold Singh Top Tube Received (Received) Urine Color Yellow (YELLOW) Urine Appearance Clear (CLEAR,HAZY) Urine pH 6.0 (5.0-8.0) Urine Specific [place] 1.015 (1.003-1.035) Urine Protein Negativemg/dL (NEG,TRACE) Urine Glucose (UA) Negativemg/dL (NEGATIVE) Urine Ketones Tracemg/dL (NEGATIVE) Urine Occult Blood Negative (NEGATIVE) Urine Nitrite Negative (NEGATIVE) Urine Bilirubin Negative (NEGATIVE) Urine Urobilinogen Normalmg/dL (NORMAL) Urine Leukocyte Esterase Small (NEGATIVE) Urine RBC 0-2/hpf (0-2) Urine WBC 0-5/hpf (0-5) Urine Epithelial Cells Few/hpf (NONE-MOD) Urine Crystals None seen (NONE SEEN) Urine Bacteria Few/hpf (NONE-FEW) Urine Hyaline Casts Occasional/lpf (NONE) Urine Granular Casts None seen (NONE SEEN) Urine Waxy Casts None seen (NONE SEEN) Urine Red Blood Cell Casts None seen (NONE SEEN) Urine White Blood Cell Casts None seen (NONE SEEN) Urine Mucus None seen (None Seen) Urine Trichomonas None seen (NONE SEEN) Urine Yeast None (NONE SEEN) Lactic Acid Level 1.6mmol/L (0.4-2.0) Troponin T 0.010ug/L (0.0-0.011) CT Abd / Pelvis Interpretation CONCLUSION: Findings suggestive of postsurgical changes. 2.8 cm cystic focus is noted near the expected region of the pancreas. Possible considerations would include a pancreatic pseudocyst or pancreatic cystic lesion. Comparison with prior studies may be helpful for further evaluation. Findings just a congential malrotation. The spleen is noted in abnormal location in the right upper quadrant possibly related to prior surgery. 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 Diverticulosis. Other findings described above. Interpretation / Wet Read by: Interpret - Radiologist Re-Eval/Medical Decision Med Decision/Clinical Course This was a very difficult case. Ms. Boyd presented with severe unrelenting abdominal pain and vomiting. I understand that she has a history of opiate use and she has been seen many times for similar complaints. In spite of IV analgesia and fluids she continue to tell me she is having the worst pain of her life. She has had numerous CAT scans but she certainly look like she could have had something emergency therefore she was CT. The CT does not show anything specifically surgical. I explained this to her. Interestingly she felt much better after the CT. Either way at discharge she had no pain. She no further vomiting. Her abdomen was soft and nontender. Asked her to see her doctor tomorrow for close follow-up. Discharge & Departure Primary Impression: Abdominal pain Abdominal location: epigastric Qualified Code: R10.13 - Epigastric pain Additional Impression: Nausea & vomiting Vomiting type: unspecified Vomiting Intractability: non-intractable Qualified Code: R11.2 - Nausea with vomiting, unspecified Disposition: Home Discharge Condition All VS Reviewed: Yes Patient Instructions: Acute Abdominal Pain (ED) Additional Instructions: Clear liquid diet for the next 24 hours. Gradually increase your diet. Call your surgeon as well as the hub bander that you have followed up with for an evaluation. Have them review the CT scan reports. Take 1 Percocet every 6 hours as needed for severe pain. This medication can be habit forming so use it sparingly. Do not drive or drink alcohol or consume acetaminophen for the Percocet. Take Zofran 1 every 8 hours as needed for nausea. Return if any problems or any worsening symptoms. Referrals: OTHER,PHYSICIAN (PCP) Marilynn Rodriguez MD, Chinnaya MD Scribe Attestation Portions of this note were transcribed by Manuel Mcclelland. I, Dr. White personally performed the history, physical exam and medical decision-making; I reviewed and confirmed the accuracy of the information in the transcribed note. Signed by : Debra Sarabia, 11/29/2016, [id number]. copies to: Marilynn Rodriguez MD; Lena Gatica MD, Todd P DO Nov 28, 2016 21:31 Manuel Mcclelland Nov 28, 2016 22:52
[2016-11-28] MEDS: HYDROmorphone 1 mg/mL Inj IVPUSH PRN (23:38)
[2016-11-28] MEDS: Ondansetron 2 mg/mL 2 mL Inj IVPUSH PRN (23:39)
[2016-11-28 23:40] LABS: APPEARANCE,URINE CLEAR (CLEAR,HAZY); COLOR,URINE YELLOW (YELLOW); OCCULT BLOOD,URINE NEGATIVE (NEGATIVE); UROBILINOGEN,URINE NORMAL (NORMAL)
[2016-11-29] MEDS: HYDROmorphone 1 mg/mL Inj IVPUSH PRN (00:45)
[2016-11-29] MEDS: Ondansetron 2 mg/mL 2 mL Inj IVPUSH PRN (00:45)
[2016-11-29 01:18] VITALS: BP 157/90; PULSE 95; RESP 20; O2SAT 99
[2016-11-29] MEDS ORDERED: _Ondansetron ODT 4 mg Tablet PO PRN (02:00)
[2016-11-29] MEDS ORDERED: _oxyCODONE/APAP 5-325 mg Tablet PO PRN (02:00)
[2016-11-29 03:14] VITALS: BP 157/90; PULSE 95; RESP 20; O2SAT 99
--- NOTE | 2016-11-29 11:08 | DRSVH ---
PROCEDURE: CT ABDOMEN AND PELVIS WITH CONTRAST ([id number]) INDICATIONS: severe, unrelenting pain and vomiting TECHNIQUE: After the administration of oral and intravenous contrast, 5 mm thick sections acquired from the diap hragms to the symphysis. 5 mm thick coronal and sagittal reformats were performed. For radiation do se reduction, the following was used: automated exposure control, adjustment of mA and/or kV accordi ng to patient size. COMPARISON: [facility], CT, CT ABD PELVIS W CON, 09/06/2015, 21:00. [facility], CT, CT ABD PELVIS W CON, 11/07/2016, 15:41. FINDINGS: Image quality: This is artifact associated with multiple surgical clips in the right lower quadrant a nd in the right inguinal region.. ABDOMEN: Lung bases: Lung bases are clear. Heart size is normal. Solid organs: There is a region of hypoattenuation anteriorly in the inferior left hepatic lobe luis g the falciform ligament and adjacent to the gallbladder fossa. The finding is nonspecific but given the distribution may reflect focal fatty infiltration. The spleen is normal in size but located in the right upper quadrant posterior to the right hepatic lobe. Gallbladder demonstrates no calcified gallstones or wall thickening. Biliary system is non-dilated. The pancreatic body and tail are not identified, with a lobulated septated thin walled cystic collection demonstrated along the head of th e pancreas. This measures approximately 3.6 x 2.6 cm in transverse dimension. No adrenal nodules. Kidneys demonstrate no hydronephrosis. Peritoneum and bowel: There is mild wall thickening at the gastroesophageal junction with a small hi atal hernia. There is also mild wall thickening at the gastric antrum in the region of the pylorus. There is prominent gaseous distention of the stomach. Small bowel loops are normal in caliber. The re is congenital malrotation, with small bowel loops localized to the right abdomen and altered relat ionship of the superior mesenteric artery and superior mesenteric vein. There is segmental bowel wal l thickening involving the transverse, descending, and sigmoid colon consistent with a nonspecific co litis. There is colonic diverticulosis without acute diverticulitis. No evidence of bowel obstructi on. No free fluid or air. Nodes and vessels: No retroperitoneal or mesenteric adenopathy. The aorta is normal in caliber. 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 Miscellaneous: No ventral hernias. PELVIS: Genitourinary: Bladder wall thickness is normal. Miscellaneous: No inguinal hernias or adenopathy. Bones: No suspicious bony lesions. No vertebral body compression fractures. IMPRESSION: 1. Segmental wall thickening of the distal colon as described compatible with a nonspecific colitis, likely infectious or inflammatory. 2. 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 3. Distention of the stomach with mild concentric wall thickening in the region of the gastric antru m and pylorus. The findings may represent peristaltic activity or a nonspecific gastritis. Given th e distention, recommend correlation clinically for possible gastric outlet obstruction. 4. Mild wall thickening at the gastroesophageal junction again noted which may reflect postsurgical change. 5. Pancreatic body and tail again not visualized with a cystic structure identified adjacent to the pancreatic head. The findings are suggestive of a pseudocyst, but the differential also includes a c ystic neoplasm. 6. Ill-defined hypoattenuating region in the inferior left hepatic lobe progressively increased comp ared to the prior studies. Given the distribution, findings may reflect focal fatty infiltration. H owever, the appearance is atypical and consider further evaluation with a liver protocol MRI. Dictated by: Alfie Gonzalez M.D. on 11/29/2016 at 10:48 Approved by: Alfie Gonzalez M.D. on 11/29/2016 at 11:06
== END 2016-11-29 03:25 | disposition home or self-care (01) ==
LOC: SED 18:03
DX: R10.13 Epigastric pain (principal); R11.2 Nausea with vomiting, unspecified; R07.9 Chest pain, unspecified; E03.9 Hypothyroidism, unspecified; K21.9 Gastro-esophageal reflux disease without esophagitis; Z87.891 Personal history of nicotine dependence; Z98.890 Other specified postprocedural states; Z88.6 Allergy status to analgesic agent; Z88.1 Allergy status to other antibiotic agents
CPT/HCPCS: 74177; 80053; 81001; 81025; 83605; 83690; 83735; 84484; 85025; 96374; 96375; 96376; 99285; J1170; J2405; Q9967

== ENCOUNTER 2017-01-16 13:21 | Emergency (ER) | payer OTHER ==
[~2017-01-16] VITALS: Ht 175.3 cm; Wt 56.8 kg
[2017-01-16 13:35] VITALS: BP 205/139; PULSE 94; RESP 20; O2SAT 100
[2017-01-16] MEDS ORDERED: Ondansetron 2 mg/mL 2 mL Inj ONE (14:21)
[2017-01-16 14:31] LABS: BASOPHILS % (AUTO) 0.3 % (0-3); EOSINOPHILS % (AUTO) 0 % (0-5); MONOCYTES % (AUTO) 1.9 % (4-12); Mean Corpuscular Volume 94.8 fL (81-100); NEUTROPHILS % (AUTO) 90.2 % (40-74); Platelet Count 402 bil/L (150-400)
[2017-01-16 14:52] VITALS: BP 215/123; PULSE 94; RESP 15; O2SAT 100
[2017-01-16 14:59] LABS: TROPONIN T < 0.010 ug/L (0.0-0.011)
[2017-01-16 15:09] LABS: Magnesium 1.5 mg/dL (1.6-2.6)
--- NOTE | 2017-01-16 15:14 | DRSVH ---
PROCEDURE: X-RAY CHEST, TWO VIEWS ([id number]) INDICATIONS: chest tightness TECHNIQUE: 2 views of the chest were acquired. COMPARISON: [facility], CR, XR CHEST 1VW (PORTABLE), 11/17/2016, 14:13. [facility], CR, XR CHEST 1VW (PORTABLE), 11/15/2016, 17:41. FINDINGS: Surgical changes and devices: None. Lungs and pleura: No pleural effusions or pneumothorax. Lungs are abnormal with relatively large evelyn ng volumes and flattened hemidiaphragms.. Mediastinum: Mediastinal contours are normal. Heart size is normal. Bones and chest wall: No suspicious bony abnormalities. Soft tissues appear unremarkable. IMPRESSION: Large lung volumes, possible COPD. However, aggressive inspiratory effort could also pro duce this appearance. Please correlate clinically. A source of chest tightness is not seen. Dictated by: Felice Huston M.D. on 01/16/2017 at 15:12 Approved by: Felice Huston M.D. on 01/16/2017 at 15:12
--- NOTE | 2017-01-16 15:31 | ED.REPORT ---
HPI-Chest Pain 40 and Over Date of Service January 16, 2017 ED Provider: Gee Lebron MD 56 year old female with a history of IBS, colitis, and hiatal hernia surgery Sep 17, 2016 who presents to the ER via EMS with severe epigastric abd pain, nausea and vomiting (dry heaving) intermittently. Since her surgery in August she has had pain daily. The only way to improve her pain is with medications given in the ER. She has been hospitalized for this twice in the last 2 months. She has also had an endoscopy by Dr. Marie. Since onset of symptoms she has lost approximately 15 pounds. Associated sx include hot/cold chills and she denies fever, diarrhea, constipation, dysuria. Nursing Notes Stated Complaint: VOMITING Chief Complaint: Chest Pain Nursing Notes Reviewed: Yes Allergies: Coded Allergies: levothyroxine sodium (Verified Allergy, Unknown, Upset stomach, nausea, 08/04) promethazine (Verified Adverse Reaction, Severe, Extrapyramidal Symptoms, 11/28/16) HAS TOLERATED RECENTLY - INGA IN EARLY 20s droperidol (Verified Adverse Reaction, Intermediate, Agitation, 11/28/16) hydroxyzine (Verified Adverse Reaction, Intermediate, Agitation, 11/28/16) amoxicillin (Verified Adverse Reaction, Mild, STOMACH UPSET, 11/28/16) clavulanic acid (Verified Adverse Reaction, Mild, STOMACH UPSET, 11/28/16) nitrofurantoin (Verified Adverse Reaction, Unknown, Diarrhea, 11/28/16) Scheduled Ascorbate Calcium (Vitamin C) 500 Mg Tablet 1,500 MG PO DAILY Cholecalciferol (Vitamin D3) (Vitamin D3) 2,000 Unit Tablet 4,000 UNIT PO DAILY Duloxetine (Cymbalta) 30 Mg Capsule.dr 90 MG PO DAILY Gabapentin (Gabapentin) 300 Mg Capsule 900 MG PO HS Omeprazole (Omeprazole) 20 Mg Capsule.dr 40 MG PO DAILY Thyroid,Pork ([place] Thyroid) 120 Mg Tablet 120 MG PO QAM Scheduled PRN Cyclobenzaprine (Cyclobenzaprine) 10 Mg Tablet 10 MG PO TID PRN PRN For Spasm Dicyclomine (Dicyclomine) 20 Mg Tablet 20 MG PO QID PRN PRN For GI Cramps Haloperidol (Haloperidol) 5 Mg Tablet 5 MG PO TID PRN PRN For Pain Hyoscyamine Liquid (Hyoscyamine Liquid) 0.125 Mg/1 Ml Drops 0.125 ML PO QID PRN PRN abdominal cramping Metoclopramide (Reglan) 10 Mg Tablet 10 MG PO QID PRN PRN For Pain Ondansetron ODT (Ondansetron ODT) 4 Mg Tablet 4 MG PO Q8H PRN PRN For Nausea/ Vomiting Prochlorperazine Maleate (Compazine Suppository) 25 Mg Supp.rect 25 MG RC DIRECTED PRN PRN For Nausea oxyCODONE-Acetaminophen 5-325 mg (oxyCODONE-Acetaminophen 5-325 mg) 1 Each Tablet 1-2 TAB PO Q6H PRN PRN For Pain General Time Seen by MD: 15:30 Chief Complaint Nausea, Other (abd pain) Hx Obtained From: Patient Arrived By: Walk-in Sudden in Onset?: No Onset Occurred: More than a week ago... 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 Patient repeorts that symptoms were relieved with a shot at last ED visit. Denies: Diabetes mellitus, Hypertension Past Surgical History Hiatal hernia surgery by Dr. 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 Alcohol Use: Denies alcohol use (former EtOH use) Drug Use: THC (for pain) Other Social History: Good social support, , Local resident Ambulatory Status Independent Review of Systems Basic Review of Systems Eyes: Vision NL, No discharge ENT: Hearing NL, No pain, No nasal congestion, No pharyngeal pain : No dysuria, No frequency Hematologic: No bleeding, No bruising Constitutional: Reports: Chills, Denies: Fever Respiratory: Denies: Non-productive cough, Shortness of breath Cardiovascular: Denies: Chest pain GI: Reports: Abdominal pain, Nausea, Vomiting, Denies: Constipation, Diarrhea Skin: Reports Diaphoresis, Denies Rash Complete sys rev & neg: except as marked. Physical Exam Initial Vital Signs Vital Signs (First) Date Time Temp Pulse Resp B/P Pulse Ox O2 Delivery O2 Flow Rate FiO2 01/16/17 13:35 36.6 94 20 205/139 100 Room Air Initial VS: Reviewed, Vital signs abnormal Head / Eyes: Atraumatic, Normocephalic, PERRL ENT: Mucous membranes moist, Conjunctiva normal, No scleral icterus Neck: Full range of motion Extremities: Vascular intact, Neuro intact, No swelling, No tenderness Skin: Warm, Dry, No cyanosis Neurologic: Alert, Oriented, Nonfocal General/Constitutional: Awake, Alert Distress / Hydration: Positive: Distress moderate Respiratory / Chest: Breath sounds NL, Breath sounds = bilat, No respiratory distress, No rales, No rhonchi, No wheezing, No stridor, No chest tenderness Cardiovascular: Heart rate NL, Regular rhythm, Heart sounds NL, No murmurs, Peripheral circulation NL Abdomen: Atraumatic severe abd pain to lightest possible touch Interpretation & Diagnostics Lab Results Interpretation Result Diagram: 01/16/17 1415 01/16/17 1415 Test 01/16/17 14:15 01/16/17 15:29 White Blood Count 6.8th/mm3 (3.8-10.1) Red Blood Count 4.26mil/mm3 (3.90-5.20) Hemoglobin 14.5g/dL (12.0-15.6) Hematocrit 40.4% (35.0-46.0) Mean Corpuscular Volume 94.8fL (81-100) Mean Corpuscular Hemoglobin 34.0pg (27.0-35.0) Mean Corpuscular Hemoglobin Concent 35.9% (32.0-37.0) Red Cell Distribution Width 12.9% (12.3-15.4) Platelet Count 402bil/L (150-400) Neutrophils (%) (Auto) 90.2% (40-74) Lymphocytes (%) (Auto) 7.5% (14-46) Monocytes (%) (Auto) 1.9% (4-12) Eosinophils (%) (Auto) 0% (0-5) Basophils (%) (Auto) 0.3% (0-3) Sodium Level 136mEq/L (134-144) Potassium Level 4.0mEq/L (3.5-5.2) Chloride Level 94mEq/L (97-108) Carbon Dioxide Level 23mmol/L (18-29) Blood Urea Nitrogen 9mg/dL (6-24) Creatinine 0.47mg/dL (0.57-1.00) Estimat Glomerular Filtration Rate 198mL/min (>59) Glucose Level 150mg/dL (60-99) Calcium Level 9.2mg/dL (8.5-10.1) Magnesium Level 1.5mg/dL (1.6-2.6) Total Bilirubin 0.3mg/dL (0.0-1.2) Aspartate Amino Transf (AST/SGOT) 41U/L (0-50) Alanine Aminotransferase (ALT/SGPT) 24U/L (0-32) Alkaline Phosphatase 128U/L (25-150) Troponin T < 0.010ug/L (0.0-0.011) Total Protein 6.9g/dL (6.4-8.4) Albumin 3.7g/dL (3.4-5.0) Hold Singh Top Tube Received (Received) Alcohols < 10mg/dL (0-10) Hold Urine Received (Received) General Lab Results Interp 1: Labs reviewed ECG Interpretation ECG Interpretation: nonspecific ST wave changes Time: 13:49 Interpreted by: ED physician Normal ECG Interpretation: Normal rate (87), Normal sinus rhythm X-Ray Chest Interpretation Chest Xray Interpretation: IMPRESSION: Large lung volumes, possible COPD. However, aggressive inspiratory effort could also produce this appearance. Please correlate clinically. A source of chest tightness is not seen. Dictated by: Felice Husotn M.D. on 01/16/2017 at 15:12 View: AP & lat Interpretation / Wet Read by: Interpret - Radiologist Re-Eval/Medical Decision Source of Hx: Old records ([facility] report reviewed) Time of Eval: 17:39 Re-Evaluation/Progress Note: Pt resting comfortably in bed and just woke up. Her blood pressure has improved. Pain improved. Updated pt of labs, ECG and imaging results. Discussed plan for discharge and follow up. All questions addressed. Consultation : Referral / Consult Name: Chelsea Walls PA-C Consulted With: Primary care physician Call Returned at: 16:06 Note: Said to not prescribe narcotics. Counseled Regarding: Diagnosis, Lab results, Need for follow-up, When/why to return to ED Discharge & Departure Primary Impression: Abdominal pain Abdominal location: generalized Qualified Code: R10.84 - Generalized abdominal pain Disposition: Home Discharge Condition All VS Reviewed: Yes Condition: Improved Patient Instructions: Abdominal Pain (ED) Additional Instructions: Your workup today was reassuring. Schedule an appointment with Chelsea Walls. Take the Reglan and haloperidol as prescribed. Return to the ER for any new or concerning symptoms. I recommend that you strive to continue investigating the source for these symptoms while simultaneously seeking a treatment regimen to keep the symptoms tolerable. To that and, I recommend the above medications as they are commonly helpful in individuals who suffer from chronic abdominal pain. I am not certain whether or not you use marijuana but if you do I recommend that you discontinue its use completely as marijuana occasionally causes symptoms similar to those that you are experiencing. To test this theory it would be necessary for you to abstain from marijuana for at least 6 months. Referrals: OTHER,PHYSICIAN (PCP) Chelsea Walls PA-C Attestation Portions of this note were transcribed by Anita Rothman. I, (Dr. Lebron) personally performed the history, physical exam and medical decision-making; I reviewed and confirmed the accuracy of the information in the transcribed note. Signed by: Anita Rothman. Debra, 01/16/2017, [id number] copies to: Chelsea Walls PA-C, Kirk H MD January 16, 2017 15:31 Anita Rothman January 16, 2017 15:40
[2017-01-16] MEDS ORDERED: 0.9% Sodium Chloride 1,000 ML IV ONE (15:43)
[2017-01-16] MEDS ORDERED: Dexamethasone 10 mg/mL Inj IVPUSH ONE (15:45)
[2017-01-16] MEDS ORDERED: Labetalol 5 mg/mL 4 mL Inj IVPUSH ONE (15:45)
[2017-01-16] MEDS ORDERED: Haloperidol 5 mg/mL Inj IVPUSH ONE (15:45)
[2017-01-16] MEDS ORDERED: MetoCLOpramide 5 mg/mL 2 mL Inj IVPUSH ONE (15:45)
[2017-01-16 16:12] VITALS: BP 205/117; PULSE 80; RESP 20; O2SAT 100
[2017-01-16 16:16] VITALS: BP 186/113; PULSE 79; RESP 20; O2SAT 100
[2017-01-16 17:03] VITALS: BP 135/87; PULSE 91; RESP 20; O2SAT 94
[2017-01-16] MEDS ORDERED: METO-301 PO (17:50)
[2017-01-16] MEDS ORDERED: HAL5 PO (17:50)
[2017-01-16 18:01] VITALS: BP 128/94; PULSE 90; RESP 16; O2SAT 96
== END 2017-01-16 18:02 | disposition home or self-care (01) ==
LOC: EDUNIT# 13:21 → SED 13:21 → EDBD 13:21 → SED 18:02
DX: R10.84 Generalized abdominal pain (principal); K21.9 Gastro-esophageal reflux disease without esophagitis; E03.9 Hypothyroidism, unspecified; Z87.891 Personal history of nicotine dependence; Z90.710 Acquired absence of both cervix and uterus; Z79.899 Other long term (current) drug therapy; Z88.1 Allergy status to other antibiotic agents; Z88.8 Allergy status to other drugs, medicaments and biological substances
CPT/HCPCS: 36415; 71020; 80053; 83735; 84484; 85025; 93005; 96361; 96374; 96375; 99285; G0480; J1100; J1200; J1630; J1885; J2405; J2765; J7030

== ENCOUNTER 2017-04-18 11:06 | Emergency (ER) | payer OTHER ==
[~2017-04-18] VITALS: Ht 175.3 cm; Wt 58.6 kg
[~2017-04-18 11:06] MED LIST changes: +HAL5 PO; +METO-301 PO
[2017-04-18 11:22] VITALS: BP 136/93; PULSE 100; RESP 20; O2SAT 98
--- NOTE | 2017-04-18 12:09 | ED.REPORT ---
HPI-General Illness Date of Service Apr 18, 2017 ED Provider: Ridge Landon MD Pt is a 56 y/o female w/ a hx of current pelvic fractures presenting to the ED via EMS c/o pelvic pain secondary to known pelvic fractures. The patient was recently admitted to [facility] after presenting to their ED due to multiple falls. She was found to have bilateral inferior pubic rami fractures by CT and there was a plan to start with physical therapy and possible SNF placement. The patient states that she had a mixup with her insurance company when she was denied physical therapy and called them who told her that she needed to come to an ED by ambulance for placement in a SNF or to obtain physical therapy. Her pain causes her to be unable to ambulate and is intermittently severe. The patient was told that there were no social work available to her today at [place] and thus she came here. The patient has multiple Percocet scripts written for her but states her partner gives them to her and keeps track of them. She has no acute complaints today otherwise. Pain is unchanged from previously, located in both of her hips, nonradiating, moderate to severe, worse with ambulation. No numbness or tingling in her legs , no weakness, no abdominal pain, no other complaints at this time. Nursing Notes Stated Complaint: PAIN ISSUES Chief Complaint: Extremity Trauma Nursing Notes Reviewed: Yes Allergies: Coded Allergies: levothyroxine sodium (Verified Allergy, Unknown, Upset stomach, nausea, 08/04) promethazine (Verified Adverse Reaction, Severe, Extrapyramidal Symptoms, 11/28/16) HAS TOLERATED RECENTLY - INGA IN EARLY 20s droperidol (Verified Adverse Reaction, Intermediate, Agitation, 11/28/16) hydroxyzine (Verified Adverse Reaction, Intermediate, Agitation, 11/28/16) amoxicillin (Verified Adverse Reaction, Mild, STOMACH UPSET, 11/28/16) clavulanic acid (Verified Adverse Reaction, Mild, STOMACH UPSET, 11/28/16) nitrofurantoin (Verified Adverse Reaction, Unknown, Diarrhea, 11/28/16) Scheduled Ascorbate Calcium (Vitamin C) 500 Mg Tablet 1,500 MG PO DAILY Cholecalciferol (Vitamin D3) (Vitamin D3) 2,000 Unit Tablet 4,000 UNIT PO DAILY Duloxetine (Cymbalta) 30 Mg Capsule.dr 90 MG PO DAILY Gabapentin (Gabapentin) 300 Mg Capsule 900 MG PO HS Omeprazole (Omeprazole) 20 Mg Capsule.dr 40 MG PO DAILY Thyroid,Pork ([place] Thyroid) 120 Mg Tablet 120 MG PO QAM Scheduled PRN Cyclobenzaprine (Cyclobenzaprine) 10 Mg Tablet 10 MG PO TID PRN PRN For Spasm Dicyclomine (Dicyclomine) 20 Mg Tablet 20 MG PO QID PRN PRN For GI Cramps Haloperidol (Haloperidol) 5 Mg Tablet 5 MG PO TID PRN PRN For Pain Hyoscyamine Liquid (Hyoscyamine Liquid) 0.125 Mg/1 Ml Drops 0.125 ML PO QID PRN PRN abdominal cramping Metoclopramide (Reglan) 10 Mg Tablet 10 MG PO QID PRN PRN For Pain Ondansetron ODT (Ondansetron ODT) 4 Mg Tablet 4 MG PO Q8H PRN PRN For Nausea/ Vomiting Prochlorperazine Maleate (Compazine Suppository) 25 Mg Supp.rect 25 MG RC DIRECTED PRN PRN For Nausea oxyCODONE-Acetaminophen 5-325 mg (oxyCODONE-Acetaminophen 5-325 mg) 1 Each Tablet 1-2 TAB PO Q6H PRN PRN For Pain General Time Seen by MD: 15:40 Chief Complaint Other (pelvic pain) Hx Obtained From: Patient, EMS Arrived By: Ambulance Sudden in Onset?: No Onset Occurred: 1 week ago Symptom Duration: Since onset Location: : Back (pelvis) Quality: Painful Severity: Current: Moderate Severity: Maximum: Severe Recent Healthcare: Recent hospitalization, Recent testing, Previous diagnosis, Prior workup Similar Sx Previous: Yes Past Medical History Past Medical History Notes: VERY LONG ARTEM REPORT. 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 Physical Exam Nursing note and vitals reviewed. Constitutional: Well-developed, well-nourished. Not diaphoretic. Head: Normocephalic and atraumatic. Mouth/Throat: Oropharynx is clear and moist. No oropharyngeal exudate. Eyes: EOM are normal. Pupils are equal, round, and reactive to light. Neck: Supple, no tracheal deviation. Cardiovascular: Normal rate, regular rhythm. Equal and intact distal pulses throughout. Pulmonary/Chest: Effort normal and breath sounds normal. No respiratory distress. Abdominal: Soft. No distension. There is no tenderness, rebound, or guarding. Musculoskeletal: Range of motion grossly intact, moving all extremities but with some limited range of motion at both hips secondary to pain. No edema. Good strength in both of her legs. Neurological: AOx3. Grossly nonfocal exam. Strength and sensation intact and equal to bilateral upper and lower extremities. Skin: Warm and dry, no rashes or pallor appreciated. Psychiatric: Appropriate mood and affect. Behavior appears normal. Vital Signs Vital Signs Date Time Temp Pulse Resp B/P Pulse Ox O2 Delivery O2 Flow Rate FiO2 04/18/17 20:02 36.9 96 20 156/108 98 Room Air 04/18/17 17:32 36.8 100 20 138/103 98 Room Air 04/18/17 15:23 37.1 102 20 119/78 98 Room Air 04/18/17 13:25 37.1 86 20 125/86 98 Room Air 04/18/17 11:22 37.1 100 20 136/93 98 Room Air Initial VS: Reviewed Interpretation & Diagnostics Lab Results Interpretation Test 04/18/17 14:12 Hold Urine Received (Received) Re-Eval/Medical Decision Med Decision/Clinical Course 56-year-old female with a complex past medical history presenting to the ED for evaluation stating that she would like to be admitted for placement for PT. She has no acute new complaints today, however has been having difficulty getting her PT arranged for. Her examination is reassuring with no new complaints right now and a normal neurovascular exam. PT was consulted for evaluation here in the ED and stated that if she continues to have falls at home with her walker, she may qualify. I do not have any medical indication right now to admit her to the hospital here. Social work was consulted and was able to provide her with some resources that she can follow up with tomorrow. Plan discharge with very careful return precautions, PCP follow-up in the next 1 -2 days to help coordinate care. Patient agreeable to the plan as stated, no further questions. Source of Hx: Old records, EMS Time of Eval: 17:24 Re-Evaluation/Progress Note: She is now telling the nurse and physical therapist that she has had multiple falls at home. Consultation : Referral / Consult Name: Amilcar Tariq DO Consulted With: Orthopedic Call Returned at: 15:40 Electric Switch Repairer: Agrees with eval, Agrees with plan Counseled Regarding: Diagnosis, Need for follow-up, When/why to return to ED Discharge & Departure Primary Impression: Multiple falls Additional Impressions: Fracture of left inferior pubic ramus Encounter type: initial encounter Fracture type: closed Qualified Code: S32.592A - Other specified fracture of left pubis, initial encounter for closed fracture Fracture of right inferior pubic ramus Encounter type: initial encounter Fracture type: closed Qualified Code: S32.591A - Other specified fracture of right pubis, initial encounter for closed fracture Disposition: Home Discharge Condition All VS Reviewed: Yes Condition: Stable Patient Instructions: Fall Prevention (ED), Pelvic Fracture (ED) Additional Instructions: Referrals: Chelsea Walls PA-C (PCP) Scribe Attestation Portions of this note were transcribed by Colton Hodgson. I, Dr. Landon personally performed the history, physical exam and medical decision-making; I reviewed and confirmed the accuracy of the information in the transcribed note. copies to: Chelsea Walls PA-C, William B MD Apr 18, 2017 12:09 COLTON HODGSON Apr 18, 2017 14:14
[2017-04-18 13:25] VITALS: BP 125/86; PULSE 86; RESP 20; O2SAT 98
[2017-04-18 15:23] VITALS: BP 119/78; PULSE 102; RESP 20; O2SAT 98
[2017-04-18 17:32] VITALS: BP 138/103; PULSE 100; RESP 20; O2SAT 98
[2017-04-18] MEDS ORDERED: oxyCODONE-Acetamin 10-325 mg Tablet PO ONE (18:20)
[2017-04-18 20:02] VITALS: BP 156/108; PULSE 96; RESP 20; O2SAT 98
== END 2017-04-18 20:03 | disposition home or self-care (01) ==
LOC: EDBD 11:06 → SED 11:06
DX: S32.592A Other specified fracture of left pubis, initial encounter for closed fracture (principal); S32.591A Other specified fracture of right pubis, initial encounter for closed fracture; W18.39XA Other fall on same level, initial encounter; Y93.89 Activity, other specified; Y92.009 Unspecified place in unspecified non-institutional (private) residence as the place of occurrence of the external cause; Y99.8 Other external cause status; F41.8 Other specified anxiety disorders; M79.7 Fibromyalgia; E03.9 Hypothyroidism, unspecified; K21.9 Gastro-esophageal reflux disease without esophagitis; G43.909 Migraine, unspecified, not intractable, without status migrainosus; Z98.890 Other specified postprocedural states; Z90.89 Acquired absence of other organs; Z87.891 Personal history of nicotine dependence; Z88.1 Allergy status to other antibiotic agents; Z88.8 Allergy status to other drugs, medicaments and biological substances
CPT/HCPCS: 96372; 97162; 99284; J1885